=== PATIENT | female | born 2000 | race Two or more races ===

== ENCOUNTER 2021-03-16 15:22 | Emergency (ER) | payer MEDICAID, OTHER ==
[~2021-03-16] VITALS: Ht 149.9 cm; Wt 84.4 kg
[2021-03-16 15:22] VITALS: BP 105/64
== END 2021-03-16 20:16 | disposition left against medical advice (07) ==
LOC: ER 15:22
DX: O26.892 Other specified pregnancy related conditions, second trimester (principal); R07.81 Pleurodynia; Z53.21 Procedure and treatment not carried out due to patient leaving prior to being seen by health care provider; Z3A.26 26 weeks gestation of pregnancy

== ENCOUNTER 2022-01-21 14:13 | Emergency (ER) | payer MEDICAID ==
[~2022-01-21] VITALS: Ht 149.9 cm; Wt 90.7 kg
[2022-01-21 14:20] VITALS: BP 126/85
[2022-01-21 15:40] LABS: Basophils # (auto) 0.1 10 ^3/uL (0-0.2); Basophils % (auto) 0.8 % (0.0-2.0); Eosinophils # (auto) 0.1 10 ^3/uL (0-0.8); Eosinophils % (auto) 1.3 % (0.0-7.0); Hematocrit 40.9 % (36.0-46.0); Hemoglobin 13.9 g/dL (12.2-16.2); Lymphocytes # (auto) 2.6 10 ^3/uL (0.4-5.4); Mean Corpuscular Hemoglobin 31.7 pg (28.0-32.0); Mean Corpuscular Volume 93.1 fL (80.0-100.0); Monocytes # (auto) 0.8 10 ^3/uL (0-1.3); Monocytes % (auto) 9.1 % (0.0-12.0); Neutrophils # (auto) 5.3 10 ^3/uL (1.6-8.6); Neutrophils % (auto) 59.8 % (37.0-80.0); Nucleated Red Blood Cells % 0.1 %; Red Blood Cells 4.39 10^6/uL (4.0-5.20); Red Cell Distribution Width 12.8 % (11.8-14.3); White Blood Cell 8.8 10^3/uL (4.4-10.8)
[2022-01-21 15:46] LABS: Calcium 8.8 mg/dL (8.5-10.1)
[2022-01-21 15:47] LABS: Bilirubin, Total 0.4 mg/dL (0.2-1.0); Total Protein 7.5 g/dL (6.4-8.2)
[2022-01-21 16:15] LABS: INR 1.02 (0.9-1.15); Partial Thromboplastin Time 29.6 sec (23.6-33.0)
[2022-01-21] MEDS ORDERED: CEPH-322 PO (17:43)
== END 2022-01-21 17:59 | disposition left against medical advice (07) ==
LOC: ER 14:13
DX: N93.9 Abnormal uterine and vaginal bleeding, unspecified (principal); R10.2 Pelvic and perineal pain; Z53.29 Procedure and treatment not carried out because of patient's decision for other reasons
CPT/HCPCS: 36415; 80053; 84702; 85025; 85610; 85730; 86850; 86900; 86901

== ENCOUNTER 2022-03-01 19:45 | Emergency (ER) | payer MEDICAID ==
[~2022-03-01] VITALS: Ht 165.1 cm; Wt 75.0 kg
[~2022-03-01 19:45] MED LIST: CEPH-322 PO
[2022-03-01 20:13] LABS: Basophils # (auto) 0.1 10 ^3/uL (0-0.2); Eosinophils # (auto) 0.1 10 ^3/uL (0-0.8); Eosinophils % (auto) 1.5 % (0.0-7.0); Hematocrit 41.2 % (36.0-46.0); Hemoglobin 13.8 g/dL (12.2-16.2); Lymphocytes # (auto) 2.5 10 ^3/uL (0.4-5.4); Lymphocytes % (auto) 30.9 % (10.0-50.0); Mean Corpuscular Hemoglobin 31.1 pg (28.0-32.0); Mean Corpuscular Hgb Conc. 33.4 g/dL (32.0-36.0); Mean Corpuscular Volume 93.2 fL (80.0-100.0); Monocytes # (auto) 0.6 10 ^3/uL (0-1.3); Monocytes % (auto) 7.7 % (0.0-12.0); Neutrophils # (auto) 4.7 10 ^3/uL (1.6-8.6); Neutrophils % (auto) 58.9 % (37.0-80.0); Red Blood Cells 4.43 10^6/uL (4.0-5.20); Red Cell Distribution Width 12.8 % (11.8-14.3)
[2022-03-01 20:29] LABS: Alanine Aminotransferase 18 U/L (13-56); Albumin 3.5 g/dL (3.4-5.0); Anion Gap 9 (5-15); Aspartate Aminotransferase 10 U/L (15-37); BUN/Creatinine Ratio 21.4; Blood Urea Nitrogen 12 mg/dL (7-18); Calcium 8.1 mg/dL (8.5-10.1); Carbon Dioxide 21 mmol/L (21-32); Chloride 110 mmol/L (98-107); GFR African American 174 mL/min; GFR Non-African American 144 mL/min; Glucose 88 mg/dL (74-106); Magnesium 2.3 mg/dL (1.6-2.6); Potassium 3.8 mmol/L (3.5-5.1); Sodium 140 mmol/L (136-145)
[2022-03-01 20:31] LABS: Acetaminophen 3.8 ug/mL (10-30); Alkaline Phosphatase 97 U/L (45-117); Bilirubin, Total 0.5 mg/dL (0.2-1.0); Salicylate < 1.7 mg/dL (2.8-20.0); Total Protein 7.1 g/dL (6.4-8.2)
[2022-03-01 22:39] LABS: Urine Bacteria MOD /hpf (None Seen); Urine Blood 3+ /uL (Negative); Urine Mucus FEW (None Seen); Urine WBC 61 /hpf (0 - 5)
[2022-03-01 22:56] LABS: Amphetamine Screen, Urine NEGATIVE (NEGATIVE); Barbiturate Scree,Urine NEGATIVE (NEGATIVE); Benzodiazephine Screen, Urine NEGATIVE (NEGATIVE); Cannabinoid Screen, Urine NEGATIVE (NEGATIVE); Cocaine Screen, Urine NEGATIVE (NEGATIVE); Opiate Scree,Urine NEGATIVE (NEGATIVE); Phencyclidine Screen, Urine NEGATIVE (NEGATIVE)
[2022-03-01] MEDS ORDERED: cefTRIAXone 1GM/50ML D5W 50 ML IV ONE (23:45)
[2022-03-02] MEDS ORDERED: CEPH-322 PO (03:30)
[2022-03-02] MEDS ORDERED: HYDR25CA PO (08:22)
[2022-03-02 08:51] VITALS: BP 124/74
== END 2022-03-02 09:11 | disposition home or self-care (01) ==
LOC: ER 19:45 → EDBD 19:45 → ER 03-02 08:57
DX: T39.1X2A Poisoning by 4-Aminophenol derivatives, intentional self-harm, initial encounter (principal); R45.851 Suicidal ideations; N39.0 Urinary tract infection, site not specified; F41.9 Anxiety disorder, unspecified; Z91.51 Personal history of suicidal behavior; Y92.89 Other specified places as the place of occurrence of the external cause
CPT/HCPCS: 36415; 80053; 80307; 80320; 80329; 81001; 81025; 83735; 85025; 87086; 96365; 99285; J0696

== ENCOUNTER → 2022-04-16 | Emergency (ER) | payer MEDICAID ==
[~2022-04-16] VITALS: Ht 149.9 cm; Wt 63.3 kg
[~2022-04-16] MED LIST changes: +HYDR25CA PO
[2022-04-16 09:01] VITALS: BP 112/59
[2022-04-16 10:02] LABS: Urine Bacteria FEW /hpf (None Seen); Urine Blood Negative /uL (Negative); Urine WBC 3 /hpf (0 - 5)
[2022-04-16 10:05] LABS: Alcohol, Urine < 3.0 mg/dL (0-10); Amphetamine Screen, Urine NEGATIVE (NEGATIVE); Barbiturate Scree,Urine NEGATIVE (NEGATIVE); Benzodiazephine Screen, Urine NEGATIVE (NEGATIVE); Cannabinoid Screen, Urine NEGATIVE (NEGATIVE); Cocaine Screen, Urine NEGATIVE (NEGATIVE); Opiate Scree,Urine NEGATIVE (NEGATIVE); Phencyclidine Screen, Urine NEGATIVE (NEGATIVE)
[2022-04-16 10:31] LABS: Basophils # (auto) 0.1 10 ^3/uL (0-0.2); Basophils % (auto) 0.8 % (0.0-2.0); Eosinophils # (auto) 0.2 10 ^3/uL (0-0.8); Eosinophils % (auto) 1.5 % (0.0-7.0); Hematocrit 40.9 % (36.0-46.0); Lymphocytes # (auto) 2.6 10 ^3/uL (0.4-5.4); Lymphocytes % (auto) 26.3 % (10.0-50.0); Mean Corpuscular Hemoglobin 31.9 pg (28.0-32.0); Mean Corpuscular Hgb Conc. 34.1 g/dL (32.0-36.0); Mean Corpuscular Volume 93.4 fL (80.0-100.0); Monocytes # (auto) 0.7 10 ^3/uL (0-1.3); Monocytes % (auto) 6.8 % (0.0-12.0); Neutrophils # (auto) 6.4 10 ^3/uL (1.6-8.6); Neutrophils % (auto) 64.6 % (37.0-80.0); Nucleated Red Blood Cells % 0.1 %; Red Blood Cells 4.38 10^6/uL (4.0-5.20); Red Cell Distribution Width 12.4 % (11.8-14.3); White Blood Cell 9.9 10^3/uL (4.4-10.8)
[2022-04-16 10:54] LABS: Albumin 3.7 g/dL (3.4-5.0); Calcium 8.9 mg/dL (8.5-10.1); Potassium 4.6 mmol/L (3.5-5.1)
[2022-04-16 10:57] LABS: Bilirubin, Total 0.3 mg/dL (0.2-1.0); Total Protein 7.4 g/dL (6.4-8.2)
[2022-04-16 12:18] LABS: BUN/Creatinine Ratio 15.9
== END | disposition left against medical advice (07) ==
LOC: ER 08:30
DX: R10.9 Unspecified abdominal pain (principal); Z53.21 Procedure and treatment not carried out due to patient leaving prior to being seen by health care provider
CPT/HCPCS: 36415; 80053; 80307; 81001; 81025; 83690; 85025

== ENCOUNTER 2022-07-09 07:00 | Emergency (ER) | payer MEDICAID ==
[~2022-07-09] VITALS: Ht 149.9 cm; Wt 95.0 kg
[2022-07-09 07:37] VITALS: BP 123/73
[2022-07-09 07:50] LABS: Urine Bacteria FEW /hpf (None Seen); Urine Blood TRACE /uL (Negative); Urine Mucus FEW (None Seen); Urine Specific Gravity 1.025 (1.001-1.035); Urine WBC 2 /hpf (0 - 5)
[2022-07-09 07:50] LABS: Basophils # (auto) 0.1 10 ^3/uL (0-0.2); Basophils % (auto) 0.7 % (0.0-2.0); Eosinophils # (auto) 0.1 10 ^3/uL (0-0.8); Hematocrit 41.3 % (36.0-46.0); Hemoglobin 13.8 g/dL (12.2-16.2); Lymphocytes # (auto) 3.2 10 ^3/uL (0.4-5.4); Lymphocytes % (auto) 24.4 % (10.0-50.0); Mean Corpuscular Hgb Conc. 33.4 g/dL (32.0-36.0); Mean Corpuscular Volume 92.9 fL (80.0-100.0); Monocytes # (auto) 0.9 10 ^3/uL (0-1.3); Monocytes % (auto) 6.8 % (0.0-12.0); Neutrophils % (auto) 67.1 % (37.0-80.0); Red Blood Cells 4.45 10^6/uL (4.0-5.20); Red Cell Distribution Width 12.6 % (11.8-14.3); White Blood Cell 13.3 10^3/uL (4.4-10.8)
[2022-07-09 07:57] LABS: BUN/Creatinine Ratio 13.5; Calcium 9.3 mg/dL (8.5-10.1); Potassium 4.4 mmol/L (3.5-5.1)
[2022-07-09] MEDS ORDERED: HYDR50CA PO (08:48)
== END 2022-07-09 08:56 | disposition home or self-care (01) ==
LOC: ER 07:02
DX: F41.1 Generalized anxiety disorder (principal)
CPT/HCPCS: 36415; 80048; 81001; 84484; 85025; 93005

== ENCOUNTER 2022-07-20 18:01 | Emergency (ER) | payer MEDICAID ==
[~2022-07-20] VITALS: Ht 149.9 cm; Wt 95.8 kg
[~2022-07-20 18:01] MED LIST changes: +HYDR50CA PO
[2022-07-20 19:24] LABS: Basophils # (auto) 0.2 10 ^3/uL (0-0.2); Basophils % (auto) 1.3 % (0.0-2.0); Eosinophils # (auto) 0.1 10 ^3/uL (0-0.8); Eosinophils % (auto) 0.5 % (0.0-7.0); Hematocrit 38.6 % (36.0-46.0); Lymphocytes # (auto) 2.4 10 ^3/uL (0.4-5.4); Lymphocytes % (auto) 15.5 % (10.0-50.0); Mean Corpuscular Hemoglobin 31.5 pg (28.0-32.0); Mean Corpuscular Hgb Conc. 33.6 g/dL (32.0-36.0); Mean Corpuscular Volume 93.8 fL (80.0-100.0); Monocytes # (auto) 0.8 10 ^3/uL (0-1.3); Monocytes % (auto) 5.4 % (0.0-12.0); Neutrophils # (auto) 11.9 10 ^3/uL (1.6-8.6); Neutrophils % (auto) 77.3 % (37.0-80.0); Red Blood Cells 4.11 10^6/uL (4.0-5.20); Red Cell Distribution Width 12.8 % (11.8-14.3); White Blood Cell 15.4 10^3/uL (4.4-10.8)
[2022-07-20 19:39] LABS: Calcium 8.5 mg/dL (8.5-10.1); Potassium 3.7 mmol/L (3.5-5.1)
[2022-07-20 19:42] LABS: Albumin 3.2 g/dL (3.4-5.0); BUN/Creatinine Ratio 21.3
[2022-07-20 19:42] LABS: Urine Blood Negative /uL (Negative); Urine Specific Gravity 1.025 (1.001-1.035)
[2022-07-20 19:56] LABS: Bilirubin, Total 0.2 mg/dL (0.2-1.0); Total Protein 6.8 g/dL (6.4-8.2)
[2022-07-20] MEDS ORDERED: NITR-87 PO (21:03)
[2022-07-20 22:44] VITALS: BP 133/74
== END 2022-07-20 22:45 | disposition home or self-care (01) ==
LOC: ER 18:03
DX: N39.0 Urinary tract infection, site not specified (principal); Z32.01 Encounter for pregnancy test, result positive
CPT/HCPCS: 36415; 74176; 80053; 81003; 81025; 85025

== ENCOUNTER 2022-08-28 12:15 | Emergency (ER) | payer MEDICAID ==
[~2022-08-28] VITALS: Ht 149.9 cm; Wt 100.0 kg
[~2022-08-28 12:15] MED LIST changes: +NITR-87 PO
[2022-08-28 14:01] LABS: Urine Bacteria NONE SEEN /hpf (None Seen); Urine Blood Negative /uL (Negative); Urine Mucus FEW (None Seen); Urine WBC 4 /hpf (0 - 5)
[2022-08-28 14:13] VITALS: BP 112/66
[2022-08-28] MEDS ORDERED: NITR-87 PO (15:18)
[2022-08-28] MEDS ORDERED: LIDO2SOL23 MT (15:18)
[2022-08-28] MEDS ORDERED: AZIT250T8 PO (15:18)
== END 2022-08-28 15:32 | disposition home or self-care (01) ==
LOC: ER 12:15
DX: O23.31 Infections of other parts of urinary tract in pregnancy, first trimester (principal); N39.0 Urinary tract infection, site not specified; J02.9 Acute pharyngitis, unspecified; F41.9 Anxiety disorder, unspecified; Z3A.09 9 weeks gestation of pregnancy; Z79.899 Other long term (current) drug therapy
CPT/HCPCS: 81001

== ENCOUNTER → 2022-09-22 | Outpatient (CLI) | payer MEDICAID ==
[~2022-09-22] MED LIST changes: +AZIT250T8 PO; +LIDO2SOL23 MT
[2022-09-22 11:32] LABS: Band Neutrophils % (manual) 0; Basophils % (manual) 0 (0.0-2.0); Blast Cells 0; Eosinophils % (manual) 0 (0-7); Metamyelocytes % 0; Myelocytes % 0; Promyelocytes % 0; Reactive Lymphocytes 0
[2022-09-22 11:44] LABS: Basophils # (auto) 0 10 ^3/uL (0-0.2); Basophils % (auto) 0.5 % (0.0-2.0); Eosinophils # (auto) 0.1 10 ^3/uL (0-0.8); Eosinophils % (auto) 0.6 % (0.0-7.0); Hematocrit 36.9 % (36.0-46.0); Hemoglobin 12.8 g/dL (12.2-16.2); Lymphocytes # (auto) 2.1 10 ^3/uL (0.4-5.4); Lymphocytes % (auto) 21.7 % (10.0-50.0); Mean Corpuscular Hemoglobin 32.4 pg (28.0-32.0); Mean Corpuscular Hgb Conc. 34.7 g/dL (32.0-36.0); Mean Corpuscular Volume 93.4 fL (80.0-100.0); Monocytes # (auto) 0.7 10 ^3/uL (0-1.3); Monocytes % (auto) 6.8 % (0.0-12.0); Neutrophils # (auto) 6.9 10 ^3/uL (1.6-8.6); Neutrophils % (auto) 70.4 % (37.0-80.0); Red Blood Cells 3.95 10^6/uL (4.0-5.20); Red Cell Distribution Width 12.8 % (11.8-14.3); White Blood Cell 9.7 10^3/uL (4.4-10.8)
[2022-09-22 12:45] LABS: Alcohol, Urine < 3.0 mg/dL (0-10); Amphetamine Screen, Urine NEGATIVE (NEGATIVE); Barbiturate Scree,Urine NEGATIVE (NEGATIVE); Benzodiazephine Screen, Urine NEGATIVE (NEGATIVE); Cannabinoid Screen, Urine NEGATIVE (NEGATIVE); Cocaine Screen, Urine NEGATIVE (NEGATIVE); Opiate Scree,Urine NEGATIVE (NEGATIVE); Phencyclidine Screen, Urine NEGATIVE (NEGATIVE)
[2022-09-22 20:33] LABS: Lymphocytes % (manual) 22 (10.0-50.0); Monocytes % (manual) 11 (0-12)
[2022-09-23 07:07] LABS: RPR Non Reactive (Non Reactive)
== END | disposition home or self-care (01) ==
LOC: LAB 11:04
PROVIDERS: ATTEND Obstetrics & Gynecology
DX: Z34.80 Encounter for supervision of other normal pregnancy, unspecified trimester (principal); Z36.0 Encounter for antenatal screening for chromosomal anomalies; N39.0 Urinary tract infection, site not specified; Z3A.00 Weeks of gestation of pregnancy not specified
CPT/HCPCS: 36415; 80307; 83036; 84112; 84702; 85025; 86592; 86703; 86762; 86803; 86850; 86900; 86901; 87086; 87340

== ENCOUNTER 2022-11-20 11:25 | Observation (INO) | payer MEDICAID ==
[2022-11-20] MEDS ORDERED: PREN-96 PO (13:13)
== END 2022-11-20 13:25 | disposition home or self-care (01) ==
LOC: LDRP 11:25
PROVIDERS: ADMIT Obstetrics & Gynecology; ATTEND Obstetrics & Gynecology
DX: O26.892 Other specified pregnancy related conditions, second trimester (principal); R10.9 Unspecified abdominal pain; Z3A.24 24 weeks gestation of pregnancy; W19.XXXA Unspecified fall, initial encounter; Y92.89 Other specified places as the place of occurrence of the external cause; Y93.89 Activity, other specified; Y99.8 Other external cause status
CPT/HCPCS: 59025; 76815; 81002; 94760; G0378

== ENCOUNTER 2022-12-17 18:24 | Observation (INO) | payer MEDICAID ==
[~2022-12-17] VITALS: Ht 149.9 cm; Wt 99.8 kg
[~2022-12-17 18:24] MED LIST changes: +PREN-96 PO
[2022-12-17 20:17] LABS: Urine Bacteria FEW /hpf (None Seen); Urine Blood 2+ /uL (Negative); Urine Mucus FEW (None Seen); Urine Specific Gravity 1.021 (1.001-1.035); Urine WBC 11 /hpf (0 - 5)
[2022-12-17] MEDS ORDERED: SERT25TA84 PO (20:35)
== END 2022-12-17 21:29 | disposition home or self-care (01) ==
LOC: LDRP 18:24
PROVIDERS: ADMIT Obstetrics & Gynecology; ATTEND Obstetrics & Gynecology
DX: O99.891 Other specified diseases and conditions complicating pregnancy (principal); M54.50 Low back pain, unspecified; R10.30 Lower abdominal pain, unspecified; Z3A.27 27 weeks gestation of pregnancy
CPT/HCPCS: 59025; 81001; 81002; 94760; G0378

== ENCOUNTER → 2022-12-23 | Outpatient (CLI) | payer MEDICAID ==
[~2022-12-23] MED LIST changes: +SERT25TA84 PO
[2022-12-23 10:20] LABS: Basophils # (auto) 0 10 ^3/uL (0-0.2); Basophils % (auto) 0.4 % (0.0-2.0); Eosinophils # (auto) 0.1 10 ^3/uL (0-0.8); Eosinophils % (auto) 1.1 % (0.0-7.0); Hemoglobin 11.7 g/dL (12.2-16.2); Lymphocytes # (auto) 2.3 10 ^3/uL (0.4-5.4); Lymphocytes % (auto) 25.5 % (10.0-50.0); Mean Corpuscular Hemoglobin 33.4 pg (28.0-32.0); Mean Corpuscular Hgb Conc. 35.4 g/dL (32.0-36.0); Mean Corpuscular Volume 94.4 fL (80.0-100.0); Monocytes # (auto) 0.9 10 ^3/uL (0-1.3); Monocytes % (auto) 9.9 % (0.0-12.0); Neutrophils # (auto) 5.8 10 ^3/uL (1.6-8.6); Neutrophils % (auto) 63.1 % (37.0-80.0); Red Cell Distribution Width 13.1 % (11.8-14.3); White Blood Cell 9.2 10^3/uL (4.4-10.8)
== END | disposition home or self-care (01) ==
LOC: LAB 10:01
PROVIDERS: ATTEND Obstetrics & Gynecology
DX: O99.810 Abnormal glucose complicating pregnancy (principal); Z3A.00 Weeks of gestation of pregnancy not specified
CPT/HCPCS: 36415; 82951; 83036; 85025

== ENCOUNTER 2022-12-25 20:11 | Observation (INO) | payer MEDICAID ==
[~2022-12-25] VITALS: Ht 167.6 cm; Wt 110.0 kg
[~2022-12-25 20:11] MED LIST changes: +AZIT-81 PO; -AZIT250T8 PO; -CEPH-322 PO; +CEPH250C PO; -LIDO2SOL23 MT; +LIDO2SOL26 MT
[2022-12-25] MEDS ORDERED: ACETAMINOPHEN 325 MG TAB PO ONE (21:15)
[2022-12-25] MEDS ORDERED: METOCLOPRAMIDE HCL 10 MG TAB PO ONE (21:15)
[2022-12-25] MEDS ORDERED: SODIUM CHLORIDE 0.9% 1,000 ML IV ONE (21:15)
[2022-12-25 21:17] LABS: Albumin 2.7 g/dL (3.4-5.0)
[2022-12-25 21:19] LABS: Basophils # (auto) 0 10 ^3/uL (0-0.2); Basophils % (auto) 0.2 % (0.0-2.0); Eosinophils # (auto) 0 10 ^3/uL (0-0.8); Eosinophils % (auto) 0.3 % (0.0-7.0); Hematocrit 34.7 % (36.0-46.0); Lymphocytes # (auto) 1.7 10 ^3/uL (0.4-5.4); Lymphocytes % (auto) 13.9 % (10.0-50.0); Mean Corpuscular Hemoglobin 32.7 pg (28.0-32.0); Mean Corpuscular Hgb Conc. 34.5 g/dL (32.0-36.0); Mean Corpuscular Volume 94.7 fL (80.0-100.0); Monocytes # (auto) 0.9 10 ^3/uL (0-1.3); Neutrophils # (auto) 9.8 10 ^3/uL (1.6-8.6); Neutrophils % (auto) 78.6 % (37.0-80.0); Nucleated Red Blood Cells % 0.1 %; Red Blood Cells 3.66 10^6/uL (4.0-5.20); Red Cell Distribution Width 13.2 % (11.8-14.3); White Blood Cell 12.5 10^3/uL (4.4-10.8)
[2022-12-25 21:21] LABS: BUN/Creatinine Ratio 15.2 (10.0-20.0); Bilirubin, Total 0.1 mg/dL (0.2-1.0); Total Protein 6.6 g/dL (6.4-8.2)
[2022-12-25] MEDS ORDERED: TETANUS-DIPTH-ACEL PERTUSSIS 0.5ML SYR Tdap IM ONE (21:30)
[2022-12-25] MEDS ORDERED: fentaNYL CITRATE 100 MCG/2 ML VL IV ONE (21:30)
[2022-12-25 23:05] LABS: Alcohol, Urine < 3.0 mg/dL (0-10); Amphetamine Screen, Urine NEGATIVE (NEGATIVE); Barbiturate Scree,Urine NEGATIVE (NEGATIVE); Benzodiazephine Screen, Urine NEGATIVE (NEGATIVE); Cannabinoid Screen, Urine NEGATIVE (NEGATIVE); Cocaine Screen, Urine NEGATIVE (NEGATIVE); Opiate Scree,Urine NEGATIVE (NEGATIVE); Phencyclidine Screen, Urine NEGATIVE (NEGATIVE)
[2022-12-25 23:12] LABS: Urine Bacteria FEW /hpf (None Seen); Urine Blood Negative /uL (Negative); Urine Mucus FEW (None Seen); Urine WBC 15 /hpf (0 - 5)
[2022-12-26 03:04] VITALS: BP 102/58
== END 2022-12-26 04:45 | disposition home or self-care (01) ==
LOC: EDBD 20:11 → ER 20:11 → LDRP 12-26 03:06 → ER 12-26 03:06 → LDRP 12-26 03:07
PROVIDERS: ADMIT Obstetrics & Gynecology; ATTEND Obstetrics & Gynecology
DX: O9A.213 Injury, poisoning and certain other consequences of external causes complicating pregnancy, third trimester (principal); S00.531A Contusion of lip, initial encounter; O26.893 Other specified pregnancy related conditions, third trimester; R10.9 Unspecified abdominal pain; R10.2 Pelvic and perineal pain; O36.8130 Decreased fetal movements, third trimester, not applicable or unspecified; O99.343 Other mental disorders complicating pregnancy, third trimester; F41.8 Other specified anxiety disorders; Z3A.28 28 weeks gestation of pregnancy; Z23 Encounter for immunization; Z71.85 Encounter for immunization safety counseling; Z36.0 Encounter for antenatal screening for chromosomal anomalies; Z79.899 Other long term (current) drug therapy; Y04.8XXA Assault by other bodily force, initial encounter; Y93.89 Activity, other specified; Y92.89 Other specified places as the place of occurrence of the external cause; Y99.8 Other external cause status
CPT/HCPCS: 36415; 59025; 70450; 70486; 76705; 76815; 80053; 80307; 80320; 81001; 84702; 85025; 86850; 86900; 86901; 90471; 90715; 96361; 96374; 99285; G0378; J3010; J8597

== ENCOUNTER 2023-02-09 12:30 | Observation (INO) | payer MEDICAID ==
[~2023-02-09] VITALS: Ht 149.9 cm; Wt 99.8 kg
[2023-02-09] MEDS ORDERED: FAMOTIDINE (10MG/ML) 2ML VL IV ONE (14:00)
[2023-02-09] MEDS ORDERED: LOPERAMIDE HCL 2 MG CAP/TAB PO ONE (14:00)
[2023-02-09] MEDS ORDERED: D5W/LACTATED RINGERS 1,000 ML IV ONE (14:00)
[2023-02-09] MEDS ORDERED: ONDANSETRON HCL 4 MG/2 ML VIAL IV ONE (14:00)
[2023-02-09] MEDS ORDERED: PREN-96 PO (17:11)
[2023-02-09] MEDS ORDERED: ZOFR4T PO (17:11)
[2023-02-09] MEDS ORDERED: SERT25TA84 PO (17:11)
== END 2023-02-09 17:38 | disposition home or self-care (01) ==
LOC: LDRP 12:30
PROVIDERS: ADMIT Obstetrics & Gynecology; ATTEND Obstetrics & Gynecology
DX: O21.2 Late vomiting of pregnancy (principal); O26.893 Other specified pregnancy related conditions, third trimester; R19.7 Diarrhea, unspecified; N89.8 Other specified noninflammatory disorders of vagina; O99.343 Other mental disorders complicating pregnancy, third trimester; F41.9 Anxiety disorder, unspecified; F32.A Depression, unspecified; Z3A.34 34 weeks gestation of pregnancy
CPT/HCPCS: 59025; 76818; 81002; 96374; 96375; G0378; J2405; J3490

== ENCOUNTER → 2023-02-16 | Outpatient (CLI) | payer MEDICAID ==
[~2023-02-16] MED LIST changes: -AZIT-81 PO; -CEPH250C PO; -HYDR25CA PO; -HYDR50CA PO; -LIDO2SOL26 MT; -NITR-87 PO; +ZOFR4T PO
[2023-02-16 12:42] LABS: Basophils # (auto) 0.1 10 ^3/uL (0-0.2); Basophils % (auto) 0.6 % (0.0-2.0); Eosinophils # (auto) 0.1 10 ^3/uL (0-0.8); Eosinophils % (auto) 0.8 % (0.0-7.0); Hematocrit 32.3 % (36.0-46.0); Hemoglobin 10.8 g/dL (12.2-16.2); Lymphocytes % (auto) 20.8 % (10.0-50.0); Mean Corpuscular Hemoglobin 31.6 pg (28.0-32.0); Mean Corpuscular Hgb Conc. 33.5 g/dL (32.0-36.0); Mean Corpuscular Volume 94.4 fL (80.0-100.0); Monocytes # (auto) 0.9 10 ^3/uL (0-1.3); Monocytes % (auto) 9.8 % (0.0-12.0); Neutrophils # (auto) 6.4 10 ^3/uL (1.6-8.6); Nucleated Red Blood Cells % 0.1 %; Red Blood Cells 3.42 10^6/uL (4.0-5.20); Red Cell Distribution Width 12.9 % (11.8-14.3); White Blood Cell 9.4 10^3/uL (4.4-10.8)
[2023-02-17 07:06] LABS: RPR Non Reactive (Non Reactive)
== END | disposition home or self-care (01) ==
LOC: LAB 12:11
PROVIDERS: ATTEND Obstetrics & Gynecology
DX: Z34.00 Encounter for supervision of normal first pregnancy, unspecified trimester (principal); Z3A.00 Weeks of gestation of pregnancy not specified
CPT/HCPCS: 36415; 84112; 85025; 86592

== ENCOUNTER 2023-03-07 09:15 | Observation (INO) | payer MEDICAID ==
[2023-03-07 10:55] LABS: Albumin 2.4 g/dL (3.4-5.0); Calcium 8.2 mg/dL (8.5-10.1)
[2023-03-07 11:00] LABS: BUN/Creatinine Ratio 14.3 (10.0-20.0); Bilirubin, Total 0.2 mg/dL (0.2-1.0)
[2023-03-07 11:05] LABS: Basophils # (auto) 0.1 10 ^3/uL (0-0.2); Basophils % (auto) 0.6 % (0.0-2.0); Eosinophils # (auto) 0.1 10 ^3/uL (0-0.8); Eosinophils % (auto) 0.9 % (0.0-7.0); Hematocrit 32.2 % (36.0-46.0); Hemoglobin 10.7 g/dL (12.2-16.2); Lymphocytes # (auto) 2.3 10 ^3/uL (0.4-5.4); Lymphocytes % (auto) 22.4 % (10.0-50.0); Mean Corpuscular Hemoglobin 31.1 pg (28.0-32.0); Mean Corpuscular Hgb Conc. 33.3 g/dL (32.0-36.0); Mean Corpuscular Volume 93.3 fL (80.0-100.0); Monocytes # (auto) 0.9 10 ^3/uL (0-1.3); Monocytes % (auto) 8.8 % (0.0-12.0); Neutrophils % (auto) 67.3 % (37.0-80.0); Nucleated Red Blood Cells % 0.1 %; Red Blood Cells 3.45 10^6/uL (4.0-5.20); Red Cell Distribution Width 13.2 % (11.8-14.3); White Blood Cell 10.5 10^3/uL (4.4-10.8)
[2023-03-07 11:08] LABS: Barbiturate Scree,Urine NEGATIVE (NEGATIVE)
[2023-03-07 11:11] LABS: Alcohol, Urine < 3.0 mg/dL (0-10); Amphetamine Screen, Urine NEGATIVE (NEGATIVE); Benzodiazephine Screen, Urine NEGATIVE (NEGATIVE); Cannabinoid Screen, Urine NEGATIVE (NEGATIVE); Cocaine Screen, Urine NEGATIVE (NEGATIVE); Opiate Scree,Urine NEGATIVE (NEGATIVE); Phencyclidine Screen, Urine NEGATIVE (NEGATIVE)
[2023-03-07 11:21] LABS: Urine Bacteria MOD /hpf (None Seen); Urine Blood Negative /uL (Negative); Urine Clarity HAZY (Clear); Urine Color Yellow (Yellow); Urine Mucus FEW (None Seen); Urine Protein, UAD TRACE (Negative); Urine Specific Gravity 1.021 (1.001-1.035); Urine Urobilinogen Normal (Negative); Urine WBC 17 /hpf (0 - 5); Urine pH 6.5 (5.0-8.0)
== END 2023-03-07 12:37 | disposition home or self-care (01) ==
LOC: ER 09:15 → LDRP 09:35
PROVIDERS: ADMIT Obstetrics & Gynecology; ATTEND Obstetrics & Gynecology
DX: O26.893 Other specified pregnancy related conditions, third trimester (principal); R10.11 Right upper quadrant pain; R51.9 Headache, unspecified; Z3A.38 38 weeks gestation of pregnancy; Z79.899 Other long term (current) drug therapy
CPT/HCPCS: 36415; 59025; 76705; 80053; 80307; 81001; 81002; 85025; 94760; G0378

== ENCOUNTER 2023-03-09 13:26 | Observation (INO) | payer MEDICAID ==
[2023-03-09 16:37] LABS: Fern Testing Negative
== END 2023-03-09 16:56 | disposition home or self-care (01) ==
LOC: UNDOADMOB 13:26 → LDRP 13:26
PROVIDERS: ADMIT Obstetrics & Gynecology; ATTEND Obstetrics & Gynecology
DX: O62.9 Abnormality of forces of labor, unspecified (principal); O42.92 Full-term premature rupture of membranes, unspecified as to length of time between rupture and onset of labor; Z3A.38 38 weeks gestation of pregnancy
CPT/HCPCS: 59025; 76818; 81002; 84112; 94760; G0378; Q0114

== ENCOUNTER 2023-03-13 13:06 | Observation (INO) | payer MEDICAID | END 2023-03-13 15:20 | disposition home or self-care (01) | LOC: LDRP 13:06 | PROVIDERS: ADMIT Obstetrics & Gynecology; ATTEND Obstetrics & Gynecology | DX: O36.63X0 Maternal care for excessive fetal growth, third trimester, not applicable or unspecified (principal); Z3A.39 39 weeks gestation of pregnancy | CPT/HCPCS: 59025; 76818; 81002; G0378 ==

== ENCOUNTER 2023-03-18 13:29 | Inpatient (IN) | payer MEDICAID ==
[~2023-03-18] VITALS: Ht 149.9 cm; Wt 100.2 kg
[2023-03-18] MEDS ORDERED: PROMETHAZINE HCL 25 MG/ML 1ML IV PRN (14:45)
[2023-03-18] MEDS ORDERED: BUTORPHANOL TARTRATE 2 MG/1 ML VIAL IV PRN ×2 (14:45)
[2023-03-18] MEDS ORDERED: WITCH HAZEL-GLYCERIN PAD TOP PRN (14:45)
[2023-03-18] MEDS ORDERED: PHISODERM TOP SOLN 240ML BTL TOP PRN (14:45)
[2023-03-18] MEDS ORDERED: LIDOCAINE 2%HCL (LOCAL ANESTH.) INJ 20ML MDV IJ PRN (14:45)
[2023-03-18] MEDS ORDERED: DERMOPLAST 60ML BOTTLE TOP PRN (14:45)
[2023-03-18 15:19] LABS: Basophils # (auto) 0 10 ^3/uL (0-0.2); Basophils % (auto) 0.4 % (0.0-2.0); Eosinophils # (auto) 0.1 10 ^3/uL (0-0.8); Eosinophils % (auto) 0.8 % (0.0-7.0); Hematocrit 34.3 % (36.0-46.0); Hemoglobin 11.6 g/dL (12.2-16.2); Lymphocytes # (auto) 2.5 10 ^3/uL (0.4-5.4); Lymphocytes % (auto) 21.2 % (10.0-50.0); Mean Corpuscular Hemoglobin 31.1 pg (28.0-32.0); Mean Corpuscular Hgb Conc. 33.8 g/dL (32.0-36.0); Mean Corpuscular Volume 92.1 fL (80.0-100.0); Monocytes % (auto) 8.5 % (0.0-12.0); Neutrophils # (auto) 8.2 10 ^3/uL (1.6-8.6); Neutrophils % (auto) 69.1 % (37.0-80.0); Red Blood Cells 3.73 10^6/uL (4.0-5.20); Red Cell Distribution Width 13.6 % (11.8-14.3); White Blood Cell 11.9 10^3/uL (4.4-10.8)
[2023-03-18] MEDS: LACTATED RINGER'S 1,000 ML IV SCH ×2 (15:37→17:43)
[2023-03-18 15:39] LABS: INR 0.95 (0.9-1.15); Partial Thromboplastin Time 28.5 SEC (24.5-34.5)
[2023-03-18 15:56] LABS: Albumin 2.9 g/dL (3.4-5.0); Calcium 9.1 mg/dL (8.5-10.1); Potassium 3.8 mmol/L (3.5-5.1)
[2023-03-18 16:00] LABS: BUN/Creatinine Ratio 20.4 (10.0-20.0); Bilirubin, Total 0.3 mg/dL (0.2-1.0); Total Protein 7.4 g/dL (6.4-8.2)
[2023-03-18 16:48] LABS: Urine Bacteria FEW /hpf (None Seen); Urine Blood Negative /uL (Negative); Urine Clarity HAZY (Clear); Urine Color Yellow (Yellow); Urine Hyaline Cast FEW /lpf (0 - 2); Urine Mucus FEW (None Seen); Urine Protein, UAD TRACE (Negative); Urine Specific Gravity 1.022 (1.001-1.035); Urine Urobilinogen Normal (Negative); Urine WBC 3 /hpf (0 - 5); Urine pH 6.5 (5.0-8.0)
[2023-03-18 17:18] LABS: Alcohol, Urine < 3.0 mg/dL (0-10); Amphetamine Screen, Urine NEGATIVE (NEGATIVE); Barbiturate Scree,Urine NEGATIVE (NEGATIVE); Benzodiazephine Screen, Urine NEGATIVE (NEGATIVE); Cannabinoid Screen, Urine NEGATIVE (NEGATIVE); Cocaine Screen, Urine NEGATIVE (NEGATIVE); Opiate Scree,Urine NEGATIVE (NEGATIVE); Phencyclidine Screen, Urine NEGATIVE (NEGATIVE)
[2023-03-18] MEDS ORDERED: ONDANSETRON HCL 4 MG/2 ML VIAL IV PRN ×3 (20:15→22:15)
[2023-03-18] MEDS ORDERED: ceFAZolin 1GM/50ML 50 ML IV SCH (20:15)
[2023-03-18] MEDS ORDERED: LACT. RINGERS/OXYTOCIN 20UNITS 1,000 ML IV SCH (20:15)
[2023-03-18] MEDS ORDERED: MORPHINE SULFATE 4 MG/ML SYR/VIAL IV PRN (20:15)
[2023-03-18] MEDS ORDERED: SODIUM CITR/CITRIC ACID ORAL SOLN 30 ML ONE (20:28)
[2023-03-18] MEDS ORDERED: TETRACAINE 1% INJ 2 ML VIAL IJ ONE (20:34)
[2023-03-18] MEDS ORDERED: MORPHINE SULF PF 5 MG/10 ML VIAL ONE (20:36)
[2023-03-18] MEDS ORDERED: oxyTOCIN 10 UNIT/ML 10ML VIAL ONE (20:38)
[2023-03-18] MEDS ORDERED: ePHEDrine SULFATE 50 MG/ML AMP ONE (20:38)
[2023-03-18] MEDS ORDERED: ONDANSETRON HCL 4 MG/2 ML VIAL ONE (20:38)
[2023-03-18] MEDS ORDERED: fentaNYL CITRATE 100 MCG/2 ML VL ONE (21:23)
[2023-03-18] MEDS ORDERED: BUPIVACAINE 0.25% INJ 50ML VIAL ONE (21:43)
[2023-03-18] MEDS ORDERED: MIDAZOLAM HCL 2MG/2ML 2ml VIAL (1mg/ml) ONE (21:57)
[2023-03-18 22:03] VITALS: PULSE 84; RESP 13; O2SAT 98
[2023-03-18] MEDS ORDERED: HYDROmorphone HCL 2 MG/ML VL/or syr IV PRN (22:15)
[2023-03-18] MEDS ORDERED: diphenhdrAMINE HCL 50 MG/1 ML VL IV PRN (22:15)
[2023-03-18] MEDS ORDERED: NALOXONE HCL 0.4 MG/ML VIAL IV PRN (22:15)
[2023-03-18] MEDS ORDERED: KETOROLAC TROMETH 30 MG/ML 1ML VIAL IV PRN (22:15)
[2023-03-18] MEDS ORDERED: DexAMETHasone SOD PHOS 10MG/1ML VIAL INJ IV PRN (22:15)
[2023-03-18] MEDS ORDERED: NALBUPHINE HCL 10 MG/1ml INJECTION SUBCUT ONE (22:15)
[2023-03-18] MEDS ORDERED: OXYTOCIN 10UNIT/ML 1ML VIAL ONE (22:28)
[2023-03-18 23:00] VITALS: BP 110/66; PULSE 77; RESP 18; TEMP 98.2; O2SAT 98
[2023-03-18 23:46] VITALS: BP 97/63; PULSE 77; RESP 18; O2SAT 96
[2023-03-19] VITALS (17 sets, daily range): BP systolic 91–118; BP diastolic 46–78; PULSE 68–91; RESP 15–19; TEMP 98.1–98.8; O2SAT 94–99
[2023-03-19] MEDS: LACTATED RINGER'S 1,000 ML IV SCH ×2 (04:01→21:47)
[2023-03-19] MEDS: ACETAMINOPHEN IV 1000 MG/100ML (10MG/ML) IV PRN ×2 (04:02→12:30)
[2023-03-19] MEDS: ceFAZolin 1GM/50ML 50 ML IV SCH ×3 (05:02→21:46)
[2023-03-19 06:44] LABS: Basophils # (auto) 0.1 10 ^3/uL (0-0.2); Basophils % (auto) 0.6 % (0.0-2.0); Eosinophils # (auto) 0 10 ^3/uL (0-0.8); Eosinophils % (auto) 0.4 % (0.0-7.0); Hematocrit 27.3 % (36.0-46.0); Hemoglobin 9.3 g/dL (12.2-16.2); Lymphocytes % (auto) 16.7 % (10.0-50.0); Mean Corpuscular Hemoglobin 31.4 pg (28.0-32.0); Mean Corpuscular Volume 92.3 fL (80.0-100.0); Monocytes # (auto) 0.8 10 ^3/uL (0-1.3); Monocytes % (auto) 6.9 % (0.0-12.0); Neutrophils # (auto) 9.2 10 ^3/uL (1.6-8.6); Neutrophils % (auto) 75.4 % (37.0-80.0); Red Blood Cells 2.95 10^6/uL (4.0-5.20); Red Cell Distribution Width 13.6 % (11.8-14.3); White Blood Cell 12.1 10^3/uL (4.4-10.8)
[2023-03-19 07:06] LABS: RPR Non Reactive (Non Reactive)
[2023-03-19] MEDS ORDERED: HYDROcodone-ACET 5/325MG TAB PO PRN (14:30)
[2023-03-19] MEDS ORDERED: BISACODYL 10 MG RECT SUPP PR PRN (14:30)
[2023-03-19] MEDS: IBUPROFEN 800 MG TAB PO PRN (14:35)
[2023-03-19] MEDS: HYDROcodone-ACET 5/325MG TAB PO PRN ×2 (17:26→22:27)
[2023-03-19] MEDS: SIMETHICONE 80 MG CHEWABLE TABLET PO SCH ×2 (19:09→21:46)
[2023-03-19] MEDS: DOCUSATE SOD 100 MG CAP PO SCH (21:46)
[2023-03-20] MEDS: IBUPROFEN 800 MG TAB PO PRN ×3 (02:24→21:39)
[2023-03-20 02:50] VITALS: BP 117/76; PULSE 79; RESP 18; TEMP 98.4; O2SAT 97
[2023-03-20] MEDS: HYDROcodone-ACET 5/325MG TAB PO PRN ×3 (04:06→18:02)
[2023-03-20] MEDS: SIMETHICONE 80 MG CHEWABLE TABLET PO SCH ×4 (06:00→21:39)
[2023-03-20 07:28] VITALS: BP 101/62; PULSE 78; RESP 16; TEMP 98.1; O2SAT 97
[2023-03-20] MEDS ORDERED: PERCOT PO (08:01)
[2023-03-20] MEDS ORDERED: CEPH250C PO ×6 (08:10→08:59)
[2023-03-20] MEDS ORDERED: HYDR1TAB97 PO ×6 (08:10→16:48)
[2023-03-20] MEDS: DOCUSATE SOD 100 MG CAP PO SCH ×2 (10:08→21:39)
[2023-03-20] MEDS: DOCUSATE CALCIUM 240 MG CAP PO SCH (10:08)
[2023-03-20 10:30] VITALS: BP 106/62; PULSE 84; RESP 16; TEMP 98.3; O2SAT 95
[2023-03-20] MEDS: SODIUM CHLOR 0.9% PF (SALINE LOCK) 10ML VIAL/SYR IV SCH ×2 (14:00→22:16)
[2023-03-20] MEDS ORDERED: SERTRALINE HCL 50 MG TAB PO SCH (14:30)
[2023-03-20 15:30] VITALS: BP 111/60; PULSE 71; RESP 16; TEMP 98.6; O2SAT 98
[2023-03-20] MEDS: SERTRALINE HCL 50 MG TAB PO SCH (17:28)
[2023-03-20 18:59] VITALS: BP 128/74; PULSE 80; RESP 16; TEMP 98; O2SAT 98
[2023-03-20] MEDS ORDERED: SERTRALINE HCL 50 MG TAB PO ONE (20:00)
[2023-03-20 23:30] VITALS: BP 115/67; PULSE 73; RESP 18; TEMP 98.2; O2SAT 98
[2023-03-21] MEDS: HYDROcodone-ACET 5/325MG TAB PO PRN (02:23)
[2023-03-21] MEDS: SODIUM CHLOR 0.9% PF (SALINE LOCK) 10ML VIAL/SYR IV SCH ×2 (05:35→14:00)
[2023-03-21] MEDS: SIMETHICONE 80 MG CHEWABLE TABLET PO SCH ×3 (05:37→18:00)
[2023-03-21] MEDS: IBUPROFEN 800 MG TAB PO PRN (05:37)
[2023-03-21 06:30] VITALS: BP 114/80; PULSE 96; RESP 16; TEMP 98.4; O2SAT 96
[2023-03-21] MEDS: DOCUSATE SOD 100 MG CAP PO SCH (09:41)
[2023-03-21] MEDS: DOCUSATE CALCIUM 240 MG CAP PO SCH (09:41)
[2023-03-21] MEDS: SERTRALINE HCL 50 MG TAB PO SCH (09:41)
[2023-03-21 11:00] VITALS: BP 124/77; PULSE 79; RESP 8; TEMP 98.3; O2SAT 97
[2023-03-21 15:30] VITALS: BP 128/81; PULSE 80; RESP 8; TEMP 98.4; O2SAT 97
[2023-03-21 21:10] VITALS: BP 115/68; PULSE 68; RESP 18; TEMP 98; O2SAT 99
[2023-03-22 19:06] LABS: Treponema pallidum Ab (FTA-Ab) Non Reactive (Non Reactive)
== END 2023-03-21 21:10 | disposition home or self-care (01) | DRG 540 ==
LOC: LDRP 13:29
PROVIDERS: ADMIT Obstetrics & Gynecology; ATTEND Obstetrics & Gynecology
PROC: 3E033VJ Introduction of Other Hormone into Peripheral Vein, Percutaneous Approach (ICD-10-PCS; 2023-03-18)
PROC: 10D00Z1 Extraction of Products of Conception, Low, Open Approach (ICD-10-PCS; principal; 2023-03-18 20:36)
DX: O48.0 Post-term pregnancy (principal); R71.0 Precipitous drop in hematocrit; F41.9 Anxiety disorder, unspecified; Z37.0 Single live birth; Z81.8 Family history of other mental and behavioral disorders; O61.0 Failed medical induction of labor; Z3A.40 40 weeks gestation of pregnancy; O69.9XX0 Labor and delivery complicated by cord complication, unspecified, not applicable or unspecified
CPT/HCPCS: 36415; 59025; 76818; 80053; 80307; 81001; 81002; 85025; 85610; 85730; 86592; 86850; 86900; 86901; 94760; 94762; 96360; 96361; G0378; J0131; J0690; J2250; J2405; J2590; J3490

== ENCOUNTER 2023-07-13 18:29 | Emergency (ER) | payer MEDICAID ==
[~2023-07-13] VITALS: Ht 149.9 cm; Wt 81.8 kg
[~2023-07-13 18:29] MED LIST changes: +CEPH250C PO; +HYDR1TAB97 PO
[2023-07-13 18:47] VITALS: BP 102/60; RESP 18; O2SAT 96
[2023-07-13 19:15] VITALS: PULSE 129
[2023-07-13] MEDS ORDERED: ONDANSETRON ODT 4 MG TAB PO ONE (19:15)
[2023-07-13] MEDS ORDERED: SODIUM CHLORIDE 0.9% 1,000 ML IV ONE (19:15)
[2023-07-13 19:18] LABS: Basophils # (auto) 0 10 ^3/uL (0-0.2); Basophils % (auto) 0.3 % (0.0-2.0); Eosinophils # (auto) 0 10 ^3/uL (0-0.8); Eosinophils % (auto) 0.1 % (0.0-7.0); Hematocrit 40.9 % (36.0-46.0); Hemoglobin 13.8 g/dL (12.2-16.2); Lymphocytes # (auto) 1.3 10 ^3/uL (0.4-5.4); Lymphocytes % (auto) 10.9 % (10.0-50.0); Mean Corpuscular Hemoglobin 29.9 pg (28.0-32.0); Mean Corpuscular Hgb Conc. 33.7 g/dL (32.0-36.0); Mean Corpuscular Volume 88.7 fL (80.0-100.0); Monocytes # (auto) 0.8 10 ^3/uL (0-1.3); Monocytes % (auto) 6.1 % (0.0-12.0); Neutrophils # (auto) 10.2 10 ^3/uL (1.6-8.6); Neutrophils % (auto) 82.6 % (37.0-80.0); Red Blood Cells 4.61 10^6/uL (4.0-5.20); Red Cell Distribution Width 13.7 % (11.8-14.3); White Blood Cell 12.3 10^3/uL (4.4-10.8)
[2023-07-13 19:38] LABS: Alanine Aminotransferase 28 U/L (7-40); Albumin 4.6 g/dL (3.2-4.8); Alkaline Phosphatase 111 U/L (46-116); Anion Gap 8 (5-15); Aspartate Aminotransferase 14 U/L (13-40); BUN/Creatinine Ratio 20.8 (10.0-20.0); Bilirubin, Total 0.5 mg/dL (0.2-1.0); Blood Urea Nitrogen 15 mg/dL (9-23); Carbon Dioxide 22 mmol/L (20-30); Chloride 104 mmol/L (98-107); Glucose 92 mg/dL (74-106); Magnesium 1.8 mg/dL (1.6-2.6); Potassium 4.2 mmol/L (3.5-5.1); Sodium 134 mmol/L (136-145); Total Protein 7.2 g/dL (5.7-8.2)
[2023-07-13 20:45] LABS: Amphetamine Screen, Urine Neg (NEGATIVE); Barbiturate Scree,Urine Neg (NEGATIVE); Benzodiazephine Screen, Urine Neg (NEGATIVE)
[2023-07-13 20:46] LABS: Cannabinoid Screen, Urine Neg (NEGATIVE); Cocaine Screen, Urine Neg (NEGATIVE); Opiate Scree,Urine Neg (NEGATIVE); Phencyclidine Screen, Urine Neg (NEGATIVE)
[2023-07-13 20:47] LABS: Urine Bacteria MOD /hpf (None Seen); Urine Blood Negative /uL (Negative); Urine Clarity HAZY (Clear); Urine Color Yellow (Yellow); Urine Protein, UAD Negative (Negative); Urine Specific Gravity 1.025 (1.001-1.035); Urine Urobilinogen Normal (Negative); Urine WBC 2 /hpf (0 - 5)
== END 2023-07-14 01:34 | disposition left against medical advice (07) ==
LOC: ER 18:29
DX: R53.1 Weakness (principal); B34.9 Viral infection, unspecified; R51.9 Headache, unspecified; D72.829 Elevated white blood cell count, unspecified; Z32.02 Encounter for pregnancy test, result negative; Z79.899 Other long term (current) drug therapy
CPT/HCPCS: 36415; 71045; 80053; 80307; 81001; 81025; 83735; 84484; 85025; 93005

== ENCOUNTER 2024-04-27 16:13 | Emergency (ER) | payer MEDICAID ==
[~2024-04-27] VITALS: Ht 149.9 cm; Wt 100.0 kg
[2024-04-27 17:14] LABS: Basophils # (auto) 0.1 10 ^3/uL (0-0.2); Basophils % (auto) 0.9 % (0.0-2.0); Eosinophils # (auto) 0.1 10 ^3/uL (0-0.8); Eosinophils % (auto) 1.4 % (0.0-7.0); Hematocrit 36.7 % (36.0-46.0); Hemoglobin 12.8 g/dL (12.2-16.2); Lymphocytes # (auto) 2.9 10 ^3/uL (0.4-5.4); Lymphocytes % (auto) 28.3 % (10.0-50.0); Mean Corpuscular Hemoglobin 32.5 pg (28.0-32.0); Monocytes # (auto) 0.9 10 ^3/uL (0-1.3); Monocytes % (auto) 8.7 % (0.0-12.0); Neutrophils # (auto) 6.3 10 ^3/uL (1.6-8.6); Neutrophils % (auto) 60.7 % (37.0-80.0); Platelet Count (auto) 389 10^3/uL (140-450); Red Blood Cells 3.95 10^6/uL (4.0-5.20); Red Cell Distribution Width 12.6 % (11.8-14.3); White Blood Cell 10.3 10^3/uL (4.4-10.8)
[2024-04-27 17:27] LABS: Alanine Aminotransferase 14 U/L (7-40); Albumin 4.5 g/dL (3.2-4.8); Alkaline Phosphatase 74 U/L (46-116); Anion Gap 7 (5-15); Aspartate Aminotransferase 13 U/L (13-40); BUN/Creatinine Ratio 17.4 (10.0-20.0); Bilirubin, Total 0.3 mg/dL (0.2-1.0); Blood Urea Nitrogen 12 mg/dL (9-23); Calcium 9.6 mg/dL (8.7-10.4); Carbon Dioxide 22 mmol/L (20-31); Chloride 111 mmol/L (98-107); Glucose 90 mg/dL (74-106); Potassium 4.3 mmol/L (3.5-5.1); Sodium 140 mmol/L (136-145)
[2024-04-27] MEDS: ACETAMINOPHEN 500 MG TAB PO ONE (17:52)
[2024-04-27 18:17] LABS: Urine Bacteria None Seen /hpf (None Seen)
[2024-04-27 18:43] LABS: Urine Blood 3+ /uL (Negative); Urine Clarity Ex.Turbid (Clear); Urine Color Light-Red (Yellow); Urine Protein, UAD 1+ (Negative); Urine Urobilinogen Normal (Negative); Urine WBC 137 /hpf (0 - 5); Urine pH 5.5 (5.0-9.0)
[2024-04-27] MEDS ORDERED: NITR-87 PO (19:04)
[2024-04-27] MEDS ORDERED: ACET500T58 PO (19:04)
[2024-04-27] MEDS: NITROFURANTOIN 100 mg CAP PO ONE (19:23)
[2024-04-27 19:25] VITALS: BP 114/65; PULSE 83; RESP 17; TEMP 98.2; O2SAT 99
== END 2024-04-27 19:31 | disposition home or self-care (01) ==
LOC: ER 16:13
DX: N93.9 Abnormal uterine and vaginal bleeding, unspecified (principal); R10.2 Pelvic and perineal pain; N39.0 Urinary tract infection, site not specified; F41.9 Anxiety disorder, unspecified; Z79.899 Other long term (current) drug therapy; Z98.890 Other specified postprocedural states
CPT/HCPCS: 36415; 80053; 81001; 81025; 84702; 85025

== ENCOUNTER 2024-10-26 09:09 | Emergency (ER) | payer MEDICAID ==
[~2024-10-26] VITALS: Ht 149.9 cm; Wt 95.9 kg
[~2024-10-26 09:09] MED LIST changes: +ACET500T58 PO; +NITR-87 PO
--- NOTE | 2024-10-26 10:14 | ED.PDOC ---
History of Present Illness HPI Comments 24Y F with PMHx anxiety, dizziness and dizziness x1 day. Pt describes dizziness as the room spinning and it improves when her eyes are closed. Pt had one episode last night and one episode this morning. Pt also reports vaginal bleeding and vaginal soreness after having intercourse 2 days ago. Pt states she woke up with clots with mendez tissue and blood today. LMP 09/02/2024. No other symptoms reported. Chief Complaint: Syncope Time Seen by MD: 09:42 Primary Care Provider: ANDIE Reviewed Notes: Nurses Notes, Medications, Allergies Allergies: Coded Allergies: No Known Drug Allergy (Verified Allergy, Unknown, 03/16/21) Penicillins (Verified Allergy, Unknown, 10/26/24) Home Meds Active Scripts Acetaminophen (Acetaminophen) 500 Mg Tab, 500 MG PO Q4HP PRN, #30 TAB Prov:KEVIN DALE PAC 04/27/24 Nitrofurantoin Monohydrate Mac (Macrobid) 100 Mg Cap, 100 MG PO BID for 7 Days, #14 CAP Prov:KEVIN DALE PAC 04/27/24 Cephalexin (KEFLEX CAPSULE) 250 Mg Cp, 1 CAP PO QID PRN for 7 Days, #28 CAP 0 Refills Prov:JONO CUTLER DO 03/20/23 Hydrocodone-Acetaminophen (Hydrocodone/Acetaminophen 5-325 mg) 1 Tab Tab, 1 TAB PO BID for 10 Days, #20 TAB 0 Refills Prov:JONO CUTLER DO 03/20/23 Cephalexin (KEFLEX CAPSULE) 250 Mg Cp, 1 CAP PO QID, #28 CAP 0 Refills Prov:JONO CUTLER DO 03/20/23 Hydrocodone-Acetaminophen (Hydrocodone/Acetaminophen 5-325 mg) 1 Tab Tab, 1 TAB PO 6XD PRN for 10 Days, #60 TAB Prov:JONO CUTLER DO 03/20/23 Cephalexin (KEFLEX CAPSULE) 250 Mg Cp, 500 CAP PO QID PRN for 7 Days, #28 CAP 1 Refill Prov:JONO CUTLER DO 03/20/23 Cephalexin (KEFLEX CAPSULE) 250 Mg Cp, 1 CAP PO QID, #28 CAP Prov:JONO CUTLER DO 03/20/23 Hydrocodone-Acetaminophen (Hydrocodone/Acetaminophen 5-325 mg) 1 Tab Tab, 1 TAB PO BID for 10 Days, #20 TAB Prov:JONO CUTLER 03/20/23 Cephalexin (KEFLEX CAPSULE) 250 Mg Cp, 1 CAP PO QID PRN for 7 Days, #28 CAP Prov:JONO CUTLER 03/20/23 Cephalexin (KEFLEX CAPSULE) 250 Mg Cp, 1 CAP PO QID PRN for 15 Days, #28 CAP 0 Refills Prov:JONO CUTLER 03/20/23 Hydrocodone-Acetaminophen (Hydrocodone/Acetaminophen 5-325 mg) 1 Tab Tab, 1 TAB PO 6XD PRN for 10 Days, #60 TAB Prov:JONO CUTLER 03/20/23 Ondansetron Odt 4MG Tab (ZOFRAN PO) 4 Mg Tb, 4 MG PO TIDP PRN for 30 Days, #90 TAB ODT TAB-DISSOLVE IN MOUTH, THEN SWALLOW Prov:AARTITWYLAMERVIN LOZANOGIOVANNA [facility] 02/09/23 Sertraline Hcl (Zoloft) 25 Mg Tab, 50 MG PO DAILY for 60 Days, #120 TAB 3 Ref ills Prov:AARTIMCKINLEYMERVINGIOVANNA [facility] 02/09/23 Vit W/ Ferrous Fumara ( One Daily) Daily Tab, 1 TAB PO DAILY, #90 TAB 3 Refills Prov:AARTIRODMERVIN CHADWICKGIOVANNA [facility] 02/09/23 Information Source: Patient Mode of Arrival: Ambulatory Severity: Mild Timing: Days Duration: Since onset Prehospital treatment: None Past Medical History PAST MEDICAL HISTORY: Anxiety 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 Family History Family History: No family hx of Cancer, No family hx of DM, No family hx of Heart [place] Social History Smoker: Non-Smoker Alcohol: Occasionally Drugs: Denies Drug Use Lives In: Home Constitutional: denies: chills, diaphoresis, fatigue, fever, malaise, sweats, weakness, others EENTM: denies: blurred vision, double vision, ear bleeding, ear discharge, ear drainage, ear pain, ear ringing, eye pain, eye redness, hearing loss, mouth pain, mouth swelling, nasal discharge, nose bleeding, nose congestion, nose pain, photophobia, tearing, throat pain, throat swelling, voice changes, others Respiratory: denies: cough, hemoptysis, orthopnea, SOB at rest, shortness of breath, SOB with excertion, stridor, wheezing, others Cardiovascular: denies: chest pain, dizzy spells, diaphoresis, Dyspnea on exertion, edema, irregular heart beat, left arm pain, lightheadedness, palpitations, PND, syncope, others Gastrointestinal: denies: abdomen distended, abdominal pain, blood streaked bowels, constipated, diarrhea, dysphagia, difficulty swallowing, hematemesis, melena, nausea, poor appetite, poor fluid intake, rectal bleeding, rectal pain, vomiting, others Genitourinary: reports: abnormal vagina bleeding, pain; denies: burning, dyspareunia, dysuria, flank pain, frequency, hematuria, incontinence, , vagina discharge, urgency, others Neurological: reports: dizziness; denies: fainting, headache, left sided numbness, left sided weakness, numbness, paresthesia, pre-existing deficit, right sided numbness, right sided weakness, seizure, speech problems, tingling, tremors, weakness, others Musculoskeletal: denies: back pain, gout, joint pain, joint swelling, muscle pain, muscle stiffness, neck pain, others Integumetry: denies: bruises, change in color, change in hair/nails, dryness, laceration, lesions, lumps, rash, wounds, others Allergic/Immunocompromised: denies: Difficulty Healing, Frequent Infections, Hives, Itching, others Hematologic/Lymphatic: denies: anemia, blood clots, easy bleeding, easy bruising, swollen glands, others Endocrine: denies: excessive hunger, excessive sweating, excessive thirst, excessive urination, flushing, intolerance to cold, intolerance to heat, unex plained weight gain, unexplained weight loss, others Psychiatric: denies: anxiety, bipolar disorder, depression, hopeless, panic disorder, schizophrenia, sleepless, suicidal, others All Other Systems: Reviewed and Negative Physical Exam General Appearance: No Apparent Distress, Normal HEENT: Normal ENT Inspection, Pharynx Normal, TMs Normal Neck: Full Range of Motion, Non-Tender, Normal, Normal Inspection Respiratory: Chest Non-Tender, Lungs Clear, No Accessory Muscle Use, No Respiratory Distress, Normal Breath Sounds Cardiovascular: No Edema, No Murmur, No Gallop, Normal Peripheral Pulses, Regu lar Rate/Rhythm Breast Exam: Deferred Gastrointestinal: No Organomegaly, Non Tender, Normal Bowel Sounds, Soft Genitalia: Deferred Pelvic: Deferred Rectal: Deferred Extremities: No calf tenderness, Normal capillary refill, Normal inspection, Normal range of motion, Non-tender Musculoskeletal : Apperance: Normal Neurologic: Alert, social director II-XII nml as Tested, No Motor Deficits, Normal Affect, Normal Mood, No Sensory Deficits Cerebellar Function: NOT DONE Reflexes: NOT DONE Skin: Dry, Normal Color, Warm Lymphatic: No Adenopathy Was a procedure done? Was a procedure done?: No Differential Dx Considerations may include: , near syncope, miscarriage X-Ray, Labs, Meds, VS Vital Signs Date Time Temp Pulse Resp B/P (MAP) Pulse Ox O2 Delivery O2 Flow Rate FiO2 10/26/24 12:15 97.9 91 16 133/98 (110) 95 97.9 10/26/24 09:43 Room Air* 0 21 10/26/24 09:20 99.0 82 18 118/79 (92) 98 99.0 Lab Test 10/26/24 10:13 10/26/24 09:26 10/26/24 09:20 Range/Units White Blood Count 6.0 4.4-10.8 10^3/uL Red Blood Count 4.31 4.0-5.20 10^6/uL Hemoglobin 12.4 12.2-16.2 g/dL Hematocrit 37.8 36.0-46.0 % Mean Corpuscular Volume 87.8 80.0-100.0 fL Mean Corpuscular Hemoglobin 28.7 28.0-32.0 pg Mean Corpuscular Hemoglobin Concent 32.7 32.0-36.0 g/dL Red Cell Distribution Width 16.7 H 11.8-14.3 % Platelet Count 440 140-450 10^3/uL Mean Platelet Volume 7.3 6.9-10.8 fL Neutrophils (%) (Auto) 57.2 37.0-80.0 % Lymphocytes (%) (Auto) 31.4 10.0-50.0 % Monocytes (%) (Auto) 7.8 0.0-12.0 % Eosinophils (%) (Auto) 2.4 0.0-7.0 % Basophils (%) (Auto) 1.2 0.0-2.0 % Neutrophils # (Auto) 3.4 1.6-8.6 10 ^3/uL Lymphocytes # (Auto) 1.9 0.4-5.4 10 ^3/uL Monocytes # (Auto) 0.5 0-1.3 10 ^3/uL Eosinophils # (Auto) 0.1 0-0.8 10 ^3/uL Basophils # (Auto) 0.1 0-0.2 10 ^3/uL Nucleated Red Blood Cells 0.1 % Sodium Level 141 136-145 mmol/L Potassium Level 4.1 3.5-5.1 mmol/L Chloride Level 110 H 98-107 mmol/L Carbon Dioxide Level 22 20-31 mmol/L Anion Gap 9 5-15 Blood Urea Nitrogen 11 9-23 mg/dL Creatinine 0.69 0.550-1.02 mg/dL Glomerular Filtration Rate Calc 124 >90 mL/min BUN/Creatinine Ratio 15.9 10.0-20.0 Serum Glucose 100 74-106 mg/dL Calcium Level 9.3 8.7-10.4 mg/dL Total Bilirubin 0.3 0.2-1.0 mg/dL Aspartate Amino Transferase (AST) 13 13-40 U/L Alanine Aminotransferase (ALT) 14 7-40 U/L Alkaline Phosphatase 85 46-116 U/L Total Protein 7.1 5.7-8.2 g/dL Albumin 4.6 3.2-4.8 g/dL Beta HCG, Quantitative 0.8 L 1.5-4.2 mIU/mL Urine Color Light-orange Yellow Urine Clarity Turbid H Clear Urine pH 5.5 5.0-9.0 Urine Specific [place] 1.026 1.001-1.035 Urine Protein Trace H Negative Urine Ketones Negative Negative Urine Blood Trace H Negative /uL Urine Nitrite Negative Negative Urine Bilirubin Negative Negative Urine Urobilinogen Normal Negative mg/dL Urine Leukocyte Esterase 1+ Negative /uL Urine RBC 11 0 - 4 /hpf Urine Microscopic WBC 19 H 0-5 /HPF Urine Squamous Epithelial Cells Many <5 /hpf Urine Bacteria Few H None Seen /hpf Urine Mucus Few None Seen Urine Glucose Normal Normal mg/dL POC Glucose 106 70-106 mg/dl X-Ray, Labs, Meds, VS Comment This 24-year-old female presents secondary to hematuria and possible vaginal bleeding. Her workup here is, benign except for UA is positive leukocyte esterase and blood. This may be a UTI. As such, she will be discharged home with a prescription for Macrobid. Her workup was otherwise negative. However, she was asked to follow up with the PCP in next 1-2 days return to the ER for any new/worrisome/worsening symptoms. Time of 1ST Reevaluation: 10:12 Reevaluation 1ST: Unchanged Patient Education/Counseling: Diagnosis, Treatment Family Education/Counseling: No Family Present Departure 1 Departure Time of Disposition: 13:28 Impression: Primary Impression: UTI (urinary tract infection) Additional Impression: Hematuria Disposition: 01 HOME / SELF CARE / HOMELESS Condition: Good Discharged With: Self Critical Care Note Critical Care Time?: No Stability Stability form required: No Heart Score Heart Score: Heart Score Response (Comments) Value History N/A 0 EKG N/A 0 Age N/A 0 Risk Factors N/A 0 Troponin N/A 0 Total 0 I personally scribed for RUSSELL PETTIT MD ([email or web address]) on 10/26/24 at 10:14. Electronically submitted by Iris Arce ([email or web address]). RUSSELL PETTIT MD Oct 26, 2024 10:14
[2024-10-26 10:24] LABS: Basophils # (auto) 0.1 10 ^3/uL (0-0.2); Basophils % (auto) 1.2 % (0.0-2.0); Eosinophils # (auto) 0.1 10 ^3/uL (0-0.8); Eosinophils % (auto) 2.4 % (0.0-7.0); Hematocrit 37.8 % (36.0-46.0); Hemoglobin 12.4 g/dL (12.2-16.2); Lymphocytes # (auto) 1.9 10 ^3/uL (0.4-5.4); Lymphocytes % (auto) 31.4 % (10.0-50.0); Mean Corpuscular Hemoglobin 28.7 pg (28.0-32.0); Mean Corpuscular Hgb Conc. 32.7 g/dL (32.0-36.0); Mean Corpuscular Volume 87.8 fL (80.0-100.0); Monocytes # (auto) 0.5 10 ^3/uL (0-1.3); Monocytes % (auto) 7.8 % (0.0-12.0); Neutrophils # (auto) 3.4 10 ^3/uL (1.6-8.6); Neutrophils % (auto) 57.2 % (37.0-80.0); Nucleated Red Blood Cells % 0.1 %; Platelet Count (auto) 440 10^3/uL (140-450); Red Blood Cells 4.31 10^6/uL (4.0-5.20); Red Cell Distribution Width 16.7 % (11.8-14.3)
[2024-10-26 10:41] LABS: Alanine Aminotransferase 14 U/L (7-40); Alkaline Phosphatase 85 U/L (46-116); Anion Gap 9 (5-15); BUN/Creatinine Ratio 15.9 (10.0-20.0); Blood Urea Nitrogen 11 mg/dL (9-23); Calcium 9.3 mg/dL (8.7-10.4); Carbon Dioxide 22 mmol/L (20-31); Glucose 100 mg/dL (74-106); Potassium 4.1 mmol/L (3.5-5.1); Sodium 141 mmol/L (136-145); Total Protein 7.1 g/dL (5.7-8.2)
[2024-10-26 10:42] LABS: Albumin 4.6 g/dL (3.2-4.8); Bilirubin, Total 0.3 mg/dL (0.2-1.0)
[2024-10-26 10:48] LABS: Aspartate Aminotransferase 13 U/L (13-40); Chloride 110 mmol/L (98-107)
[2024-10-26 12:15] VITALS: BP 133/98; PULSE 91; RESP 16; TEMP 97.9; O2SAT 95
[2024-10-26 12:39] LABS: Urine Bacteria FEW /hpf (None Seen); Urine Blood TRACE /uL (Negative); Urine Clarity Turbid (Clear); Urine Color Light-Orange (Yellow); Urine Mucus FEW (None Seen); Urine Protein, UAD TRACE (Negative); Urine Specific Gravity 1.026 (1.001-1.035); Urine Squamous Epithelial Cell MANY /hpf (<5); Urine Urobilinogen Normal (Negative); Urine WBC 19 /HPF (0-5); Urine pH 5.5 (5.0-9.0)
--- NOTE | 2024-10-26 13:04 | DVH ---
INDICATION: VAG BLEED TECHNIQUE: Multiple real-time grayscale transabdominal sonographic images along with color and duplex Doppler of the uterus and ovaries were obtained. COMPARISON: None FINDINGS: The uterus measures 10.8 x 4.3 x 3.3 cm. The endometrial stripe measures 0.11 cm. The right ovary measures 3.1 x 1.7 x 1.8 cm. Volume of the right ovary is 5 cc The left ovary measures 3.1 x 1.3 x 2.3 cm. Volume of the left ovary is 5 cc Subsequent color and duplex Doppler interrogation of the ovaries demonstrated symmetric vascular flow to both ovaries, though this does not exclude the possibility of torsion due to the dual blood suppl y. IMPRESSION: 1. Enlarged heterogeneous uterus. HS:Y
[2024-10-26] MEDS ORDERED: NITR-87 PO (13:30)
== END 2024-10-26 13:38 | disposition home or self-care (01) ==
LOC: ER 09:20
DX: N39.0 Urinary tract infection, site not specified (principal); R31.9 Hematuria, unspecified; Z79.899 Other long term (current) drug therapy; Z88.0 Allergy status to penicillin
CPT/HCPCS: 36415; 76856; 80053; 81001; 82962; 84702; 85025

== ENCOUNTER 2024-11-11 03:07 | Emergency (ER) | payer MEDICAID ==
[~2024-11-11] VITALS: Ht 149.9 cm; Wt 96.7 kg
[2024-11-11] MEDS ORDERED: AUG875T PO (04:08)
--- NOTE | 2024-11-11 04:08 | ED.PDOC ---
Eye-HPI HPI Comments PT PRESENTED TO ED FOR SORETHROAT, RIGHT EARACHE WITH RINGING IN THE EARS AND H EADACHE X2 DAYS. DENIES DIFFICULTY BREATHING, CHEST PAIN OR SHORTNESS BREATH. Chief Complaint: Sore Throat Time Seen by MD: 03:14 Primary Care Provider: ANDIE Reviewed Notes: Nurses Notes, Medications, Allergies Allergies: Coded Allergies: No Known Drug Allergy (Verified Allergy, Unknown, 03/16/21) Penicillins (Verified Allergy, Unknown, 10/26/24) Home Meds Active Scripts Amoxicillin & Pot Clavulanate (AUGMENTIN TABLET) 875 Mg Tb, 875 MG PO BID for 10 Days, #20 TAB Prov:TARA MARTINEZ [employer]ANQUET WAITER/WAITRESS 11/11/24 Nitrofurantoin Monohydrate Mac (Macrobid) 100 Mg Cap, 100 MG PO BID, #10 CAP Prov:RUSSELL PETTIT MD 10/26/24 Acetaminophen (Acetaminophen) 500 Mg Tab, 500 MG PO Q4HP PRN, #30 TAB Prov:KEVIN DALE PAC 04/27/24 Nitrofurantoin Monohydrate Mac (Macrobid) 100 Mg Cap, 100 MG PO BID for 7 Days, #14 CAP Prov:KEVIN DALE PAC 04/27/24 Cephalexin (KEFLEX CAPSULE) 250 Mg Cp, 1 CAP PO QID PRN for 7 Days, #28 CAP 0 Refills Prov:JONO CUTLER DO 03/20/23 Hydrocodone-Acetaminophen (Hydrocodone/Acetaminophen 5-325 mg) 1 Tab Tab, 1 TAB PO BID for 10 Days, #20 TAB 0 Refills Prov:JONO CUTLER DO 03/20/23 Cephalexin (KEFLEX CAPSULE) 250 Mg Cp, 1 CAP PO QID, #28 CAP 0 Refills Prov:JONO CUTLER DO 03/20/23 Hydrocodone-Acetaminophen (Hydrocodone/Acetaminophen 5-325 mg) 1 Tab Tab, 1 TAB PO 6XD PRN for 10 Days, #60 TAB Prov:JONO CUTLER DO 03/20/23 Cephalexin (KEFLEX CAPSULE) 250 Mg Cp, 500 CAP PO QID PRN for 7 Days, #28 CAP 1 Refill Prov:JONO CUTLER DO 03/20/23 Cephalexin (KEFLEX CAPSULE) 250 Mg Cp, 1 CAP PO QID, #28 CAP Prov:JONO CUTLER DO 03/20/23 Hydrocodone-Acetaminophen (Hydrocodone/Acetaminophen 5-325 mg) 1 Tab Tab, 1 TAB PO BID for 10 Days, #20 TAB Prov:JONO CUTLER 03/20/23 Cephalexin (KEFLEX CAPSULE) 250 Mg Cp, 1 CAP PO QID PRN for 7 Days, #28 CAP Prov:JONO CUTLER 03/20/23 Cephalexin (KEFLEX CAPSULE) 250 Mg Cp, 1 CAP PO QID PRN for 15 Days, #28 CAP 0 Refills Prov:JONO CUTLER 03/20/23 Hydrocodone-Acetaminophen (Hydrocodone/Acetaminophen 5-325 mg) 1 Tab Tab, 1 TAB PO 6XD PRN for 10 Days, #60 TAB Prov:JONO CUTLER 03/20/23 Ondansetron Odt 4MG Tab (ZOFRAN PO) 4 Mg Tb, 4 MG PO TIDP PRN for 30 Days, #90 TAB ODT TAB-DISSOLVE IN MOUTH, THEN SWALLOW Prov:AARTIMCKINLEYMERVINGIOVANNA [facility] 02/09/23 Sertraline Hcl (Zoloft) 25 Mg Tab, 50 MG PO DAILY for 60 Days, #120 TAB 3 Refills Prov:EMILMERVINGIOVANNA [facility] 02/09/23 Vit W/ Ferrous Fumara ( One Daily) Daily Tab, 1 TAB PO DAILY, #90 TAB 3 Refills Prov:MERVIN STEINGIOVANNA [facility] 02/09/23 Mode of Arrival: Ambulatory Past Medical History PAST MEDICAL HISTORY: Anxiety 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 Family History Family History: No family hx of Cancer, No family hx of DM, No family hx of Heart [place] Social History Smoker: Non-Smoker Alcohol: Occasionally Drugs: Denies Drug Use Lives In: Home Constitutional: denies: chills, diaphoresis, fatigue, fever, malaise, sweats, weakness, others EENTM: reports: ear pain, throat pain, throat swelling; denies: blurred vision, double vision, ear bleeding, ear discharge, ear drainage, ear ringing, eye pain, eye redness, hearing loss, mouth pain, mouth swelling, nasal discharge, nose bleeding, nose congestion, nose pain, photophobia, tearing, voice changes, others Respiratory: denies: cough, hemoptysis, orthopnea, SOB at rest, shortness of breath, SOB with excertion, stridor, wheezing, others Cardiovascular: denies: chest pain, dizzy spells, diaphoresis, Dyspnea on exertion, edema, irregular heart beat, left arm pain, lightheadedness, palpitations, PND, syncope, others Gastrointestinal: denies: abdomen distended, abdominal pain, blood streaked bowels, constipated, diarrhea, dysphagia, difficulty swallowing, hematemesis, melena, nausea, poor appetite, poor fluid intake, rectal bleeding, rectal pain, vomiting, others Genitourinary: denies: abnormal vagina bleeding, burning, dyspareunia, dysuria, flank pain, frequency, hematuria, incontinence, pain, , vagina discharge, urgency, others Neurological: denies: dizziness, fainting, headache, left sided numbness, left sided weakness, numbness, paresthesia, pre-existing deficit, right sided numbness, right sided weakness, seizure, speech problems, tingling, tremors, weakness, others Musculoskeletal: denies: back pain, gout, joint pain, joint swelling, muscle pain, muscle stiffness, neck pain, others Integumetry: denies: bruises, change in color, change in hair/nails, dryness, laceration, lesions, lumps, rash, wounds, others Allergic/Immunocompromised: denies: Difficulty Healing, Frequent Infections, Hives, Itching, others Hematologic/Lymphatic: denies: anemia, blood clots, easy bleeding, easy bruising, swollen glands, others Endocrine: denies: excessive hunger, excessive sweating, excessive thirst, excessive urination, flushing, intolerance to cold, intolerance to heat, unexplained weight gain, unexplained weight loss, others Psychiatric: denies: anxiety, bipolar disorder, depression, hopeless, panic disorder, schizophrenia, sleepless, suicidal, others Physical Exam General Appearance: No Apparent Distress, Normal HEENT: Pharyngeal Erythema (TONSILS GRADE 3 WITHOUT EXUDATE), TMs Normal Neck: Full Range of Motion, Non-Tender Respiratory: Lungs Clear, No Respiratory Distress, Normal Breath Sounds Cardiovascular: No Edema, No JVD, No Murmur, No Gallop, Normal Peripheral Pulses, Regular Rate/Rhythm Breast Exam: Deferred Gastrointestinal: No Organomegaly, Non Tender, No Pulsatile Mass, Normal Bowel Sounds, Soft Genitalia: Deferred Pelvic: Deferred Rectal: Deferred Extremities: No calf tenderness, Normal capillary refill, Normal inspection, Normal range of motion, Non-tender, No pedal edema Musculoskeletal : Apperance: Normal Neurologic: Alert, semi driver II-XII nml as Tested, No Motor Deficits, Normal Affect, Normal Mood, No Sensory Deficits Cerebellar Function: Normal Reflexes: Normal Skin: Dry, Normal Color, Warm Lymphatic: No Adenopathy Was a procedure done? Was a procedure done?: No EENT DIFF Eye: N/A Sore Throat: Peritonsillar Abscess, Peritonsillar Cellulitis, Pharyngitis, Streptococcal X-Ray, Labs, Meds, VS Vital Signs Date Time Temp Pulse Resp B/P (MAP) Pulse Ox O2 Delivery O2 Flow Rate FiO2 11/11/24 03:25 98.8 96 18 116/57 (76) 97 98.8 X-Ray, Labs, Meds, VS Comment DECADRON 10 MG IM FOR THE PAIN AND SWELLING REPORTS IMPROVEMENT REQUESTING DISCHARGE AT THIS TIME. SCRIPT AUGMENTIN TWICE DAILY TIMES 10 DAYS. [id number] TYLENOL AND MOTRIN NEEDED FOR PAIN OR FEVER PER LABELED DOSING INSTRUCTIONS. REST INCREASE P.O. FLUIDS WITH ELECTROLYTES. FOLLOW UP WITH YOUR PCP IN 1-2 DAYS NECESSARY. RETURN PRECAUTIONS GIVEN PATIENT IN DICATES UNDERSTANDING AGREES WITH DISCHARGE PLAN OF CARE. Time of 1ST Reevaluation: 04:06 Reevaluation 1ST: Improved Patient Education/Counseling: Diagnosis, Treatment, Prognosis, Need For Follow Up Family Education/Counseling: No Family Present Departure 1 Departure Time of Disposition: 04:07 Impression: Primary Impression: Pharyngitis Qualified Codes: J02.9 - Acute pharyngitis, unspecified Disposition: 01 HOME / SELF CARE / HOMELESS Condition: Stable e-Prescriptions Amoxicillin & Pot Clavulanate (AUGMENTIN TABLET) 875 Mg Tb 875 MG PO BID for 10 Days, #20 TAB Prov: TARA MARTINEZ 11/11/24 Discharged With: Significant Other Critical Care Note Critical Care Time?: No Stability Stability form required: TARA Cheatham Nov 11, 2024 04:08
[2024-11-11] MEDS: DexAMETHasone SOD PHOS 10MG/1ML VIAL INJ IM ONE (04:24)
[2024-11-11 04:28] VITALS: BP 111/68; PULSE 94; RESP 19; TEMP 98.5; O2SAT 98
== END 2024-11-11 05:09 | disposition home or self-care (01) ==
LOC: ER 03:07
DX: J02.9 Acute pharyngitis, unspecified (principal); H93.11 Tinnitus, right ear; F41.9 Anxiety disorder, unspecified; Z79.899 Other long term (current) drug therapy; Z88.0 Allergy status to penicillin; Z98.890 Other specified postprocedural states
CPT/HCPCS: 96372; 99283; J1100

== ENCOUNTER 2025-01-12 07:18 | Emergency (ER) | payer MEDICAID ==
[~2025-01-12] VITALS: Ht 149.9 cm; Wt 93.9 kg
[2025-01-12] MEDS: ONDANSETRON ODT 4 MG TAB PO ONE (07:46)
[2025-01-12] MEDS: MECLIZINE HCL 25 MG TAB PO ONE (07:46)
[2025-01-12] MEDS: ALPRAZolam 0.25 MG TAB PO ONE (07:46)
--- NOTE | 2025-01-12 07:49 | ED.PDOC ---
History of Present Illness HPI Comments 24F presents to the ER w/ prior MHx of Anxiety;SHx of Back Sx, and the c/c of N/V. Pt reports on having lightheadedness which the ground moves w/ N/ and started yesterday but worsened today. Pt's LMP was December 08. No other associated symptoms, modifiers, recent injuries or sick contacts present at this time. Chief Complaint: Nausea/Vomiting Time Seen by MD: 07:30 Primary Care Provider: ANDIE Reviewed Notes: Nurses Notes, Medications, Allergies Allergies: Coded Allergies: No Known Drug Allergy (Verified Allergy, Unknown, 03/16/21) Penicillins (Verified Allergy, Unknown, 10/26/24) Home Meds Active Scripts Nitrofurantoin Monohydrate Mac (Macrobid) 100 Mg Cap, 100 MG PO BID, #10 CAP Prov:RUSSELL PETTIT MD 10/26/24 Acetaminophen (Acetaminophen) 500 Mg Tab, 500 MG PO Q4HP PRN, #30 TAB Prov:KEVIN DALE PAC 04/27/24 Nitrofurantoin Monohydrate Mac (Macrobid) 100 Mg Cap, 100 MG PO BID for 7 Days, #14 CAP Prov:KEVIN DALE PAC 04/27/24 Cephalexin (KEFLEX CAPSULE) 250 Mg Cp, 1 CAP PO QID PRN for 7 Days, #28 CAP 0 Refills Prov:JONO CUTLER DO 03/20/23 Hydrocodone-Acetaminophen (Hydrocodone/Acetaminophen 5-325 mg) 1 Tab Tab, 1 TAB PO BID for 10 Days, #20 TAB 0 Refills Prov:JONO CUTLER DO 03/20/23 Cephalexin (KEFLEX CAPSULE) 250 Mg Cp, 1 CAP PO QID, #28 CAP 0 Refills Prov:JONO CUTLER DO 03/20/23 Hydrocodone-Acetaminophen (Hydrocodone/Acetaminophen 5-325 mg) 1 Tab Tab, 1 TAB PO 6XD PRN for 10 Days, #60 TAB Prov:JONO CUTLER DO 03/20/23 Cephalexin (KEFLEX CAPSULE) 250 Mg Cp, 500 CAP PO QID PRN for 7 Days, #28 CAP 1 Refill Prov:JONO CUTLER DO 03/20/23 Cephalexin (KEFLEX CAPSULE) 250 Mg Cp, 1 CAP PO QID, #28 CAP Prov:JONO CUTLER 03/20/23 Hydrocodone-Acetaminophen (Hydrocodone/Acetaminophen 5-325 mg) 1 Tab Tab, 1 TAB PO BID for 10 Days, #20 TAB Prov:JONO CUTLER 03/20/23 Cephalexin (KEFLEX CAPSULE) 250 Mg Cp, 1 CAP PO QID PRN for 7 Days, #28 CAP Prov:JONO CUTLER 03/20/23 Cephalexin (KEFLEX CAPSULE) 250 Mg Cp, 1 CAP PO QID PRN for 15 Days, #28 CAP 0 Refills Prov:JONO CUTLER 03/20/23 Hydrocodone-Acetaminophen (Hydrocodone/Acetaminophen 5-325 mg) 1 Tab Tab, 1 TAB PO 6XD PRN for 10 Days, #60 TAB Prov:JONO CUTLER 03/20/23 Ondansetron Odt 4MG Tab (ZOFRAN PO) 4 Mg Tb, 4 MG PO TIDP PRN for 30 Days, #90 TAB ODT TAB-DISSOLVE IN MOUTH, THEN SWALLOW Prov:MILY STEIN [facility] 02/09/23 Sertraline Hcl (Zoloft) 25 Mg Tab, 50 MG PO DAILY for 60 Days, #120 TAB 3 Refills Prov:MILY STEIN [facility] 02/09/23 Vit W/ Ferrous Fumara ( One Daily) Daily Tab, 1 TAB PO DAILY, #90 TAB 3 Refills Prov:MILY STEIN [facility] 02/09/23 Information Source: Patient Mode of Arrival: Ambulatory Severity: Moderate Timing: Hours Duration: Since onset, Hours Prehospital treatment: None Past Medical History PAST MEDICAL HISTORY: Anxiety Surgical History: Surgical History (Other): Back Sx RN 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 CARE History: Spontaneous Family History Family History: Reviewed,noncontributory to illness, Unknown Social History Smoker: Non-Smoker Alcohol: Occasionally Drugs: Denies Drug Use Lives In: Home Constitutional: reports: others (Lightheaded); denies: chills, diaphoresis, fatigue, fever, malaise, sweats, weakness EENTM: denies: blurred vision, double vision, ear bleeding, ear discharge, ear drainage, ear pain, ear ringing, eye pain, eye redness, hearing loss, mouth pain, mouth swelling, nasal discharge, nose bleeding, nose congestion, nose pain, photophobia, tearing, throat pain, throat swelling, voice changes, others Respiratory: denies: cough, hemoptysis, orthopnea, SOB at rest, shortness of breath, SOB with excertion, stridor, wheezing, others Cardiovascular: denies: chest pain, dizzy spells, diaphoresis, Dyspnea on exertion, edema, irregular heart beat, left arm pain, lightheadedness, palpitations, PND, syncope, others Gastrointestinal: reports: nausea; denies: abdomen distended, abdominal pain, blood streaked bowels, constipated, diarrhea, dysphagia, difficulty swallowing, hematemesis, melena, poor appetite, poor fluid intake, rectal bleeding, rectal pain, vomiting, others Genitourinary: denies: abnormal vagina bleeding, burning, dyspareunia, dysuria, flank pain, frequency, hematuria, incontinence, pain, , vagina discharge, urgency, others Neurological: denies: dizziness, fainting, headache, left sided numbness, left sided weakness, numbness, paresthesia, pre-existing deficit, right sided numbness, right sided weakness, seizure, speech problems, tingling, tremors, w eakness, others Musculoskeletal: denies: back pain, gout, joint pain, joint swelling, muscle pain, muscle stiffness, neck pain, others Integumetry: denies: bruises, change in color, change in hair/nails, dryness, laceration, lesions, lumps, rash, wounds, others Allergic/Immunocompromised: denies: Difficulty Healing, Frequent Infections, Hives, Itching, others Hematologic/Lymphatic: denies: anemia, blood clots, easy bleeding, easy bruising, swollen glands, others Endocrine: denies: excessive hunger, excessive sweating, excessive thirst, excessive urination, flushing, intolerance to cold, intolerance to heat, unexplained weight gain, unexplained weight loss, others Psychiatric: denies: anxiety, bipolar disorder, depression, hopeless, panic disorder, schizophrenia, sleepless, suicidal, others All Other Systems: Reviewed and Negative Physical Exam Exam Comments N/ General Appearance: No Apparent Distress, Normal HEENT: Normal ENT Inspection, Pharynx Normal, TMs Normal Neck: Full Range of Motion, Non-Tender, Normal, Normal Inspection Respiratory: Chest Non-Tender, Lungs Clear, No Accessory Muscle Use, No Respiratory Distress, Normal Breath Sounds Cardiovascular: No Edema, No JVD, No Murmur, No Gallop, Normal Peripheral Pul ses, Regular Rate/Rhythm Breast Exam: Deferred Gastrointestinal: No Organomegaly, Non Tender, No Pulsatile Mass, Normal Bowel Sounds, Soft Genitalia: Deferred Pelvic: Deferred Rectal: Deferred Extremities: No calf tenderness, Normal capillary refill, Normal inspection, Normal range of motion, Non-tender, No pedal edema Musculoskeletal : Apperance: Normal Neurologic: 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 Was a procedure done?: No Differential Dx Considerations may include: viral illness, morning sickness, hyperemesis gravidarum, CHS, sbo, ileus, appendicitis, gastroenteritis, BPV X-Ray, Labs, Meds, VS Vital Signs Date Time Temp Pulse Resp B/P (MAP) Pulse Ox O2 Delivery O2 Flow Rate FiO2 01/12/25 07:52 82 16 98 Room Air* 0 21 01/12/25 07:52 98.8 82 16 123/66 (85) 98 98.8 01/12/25 07:29 97.4 88 17 133/75 (94) 98 97.4 Lab Test 01/12/25 08:05 01/12/25 07:30 Range/Units Beta HCG, Quantitative 32.9 H 1.5-4.2 mIU/mL Urine Test Positive Negative Current Medications Medications (Trade) Dose Ordered Sig/Bony Route Start Time Stop Time Status Last Admin Meclizine HCl (Antivert Tablet) 25 mg ONCE ONCE PO 01/12/25 07:30 01/12/25 07:31 DC 01/12/25 07:46 Alprazolam (Xanax Tablet) 0.25 mg ONCE ONCE PO 01/12/25 07:30 01/12/25 07:31 DC 01/12/25 07:46 Ondansetron HCl (Zofran Po) 4 mg ONCE ONCE PO 01/12/25 07:30 01/12/25 07:31 DC 01/12/25 07:46 Ondansetron HCl (Zofran) 4 mg ONCE ONCE IV 01/12/25 08:15 01/12/25 08:16 DC 01/12/25 08:15 Sodium Chloride 1,000 ml @ 1,000 mls/hr Q1H ONCE IV 01/12/25 08:15 01/12/25 09:14 DC 01/12/25 08:15 Time of 1ST Reevaluation: 08:00 Reevaluation 1ST: Unchanged Time of 2ND Reevaluation: 10:28 Reevaluation 2ND: Resolved Patient Education/Counseling: Diagnosis, Treatment, Prognosis, Need For Follow Up Family Education/Counseling: No Family Present Comments pt is feeling much improved. she is but very early. she will need to follow up in 48 hours for repeat hcg. i will prescribe zofran for her Departure 1 Departure Time of Disposition: 10:29 Impression: Primary Impression: Nausea and vomiting in Disposition: 01 HOME / SELF CARE / HOMELESS Condition: Good e-Prescriptions Ondansetron Odt 4MG Tab (ZOFRAN PO) 4 Mg Tb 4 MG PO Q4HP PRN for 5 Days, #25 TAB ODT TAB-DISSOLVE IN MOUTH, THEN SWALLOW Prov: HEENA WHITE MD 01/12/25 Discharged With: Self Critical Care Note Critical Care Time?: No Stability Stability form required: No I personally scribed for HEENA WHITE MD ([email or web address]) on 01/12/25 at 07:49. Electronically submitted by Prabhu Walters ([email or web address]). HEENA WHITE MD Jan 12, 2025 07:49
[2025-01-12 07:52] VITALS: PULSE 82; RESP 16; TEMP 98.8; O2SAT 98
[2025-01-12] MEDS: ONDANSETRON HCL 4 MG/2 ML VIAL ONE (08:08)
[2025-01-12] MEDS: SODIUM CHLORIDE 0.9% 1,000 ML IV ONE (08:15)
[2025-01-12] MEDS: ONDANSETRON HCL 4 MG/2 ML VIAL IV ONE (08:15)
--- NOTE | 2025-01-12 09:43 | DVH ---
Technique: Real-time ultrasound images through the pelvis using a transabdominal transducer. For bett er evaluation of the ovaries and endometrial stripe, an endovaginal transducer was used. Indication: , nausea Comparison: None Findings: The uterus measures 13.1 cm. The endometrial stripe measures 7 mm. No intrauterine identi fied. Cervical nabothian cyst measuring 10 mm.. Right ovary measures 4 x 1.7 x 2.7 cm. Normal flow on color doppler images. No focal masses are ident ified. Left ovary measures 2.5 x 1 x 2.2 cm. Normal flow on color doppler images. No focal masses are ident ified. There is no significant free fluid in the pelvis. Impression: No intrauterine identified. Recommend follow-up ultrasound and beta HCG correlation. Prominent size of the uterus measuring 13 cm in craniocaudal dimension.
[2025-01-12] MEDS ORDERED: ZOFR4T PO (10:30)
[2025-01-12 10:31] VITALS: BP 119/67; PULSE 78; RESP 17; O2SAT 99
== END 2025-01-12 10:51 | disposition home or self-care (01) ==
LOC: ER 07:18
DX: O21.9 Vomiting of pregnancy, unspecified (principal); Z3A.00 Weeks of gestation of pregnancy not specified; F41.9 Anxiety disorder, unspecified; Z88.0 Allergy status to penicillin; Z79.899 Other long term (current) drug therapy
CPT/HCPCS: 36415; 76801; 76817; 81025; 84702; 86900; 86901; 96361; 96374; 99285; J2405; J7030; J8597; Q0162

== ENCOUNTER 2025-01-22 10:52 | Outpatient (CLI) | payer MEDICAID | END 2025-01-22 17:00 | disposition home or self-care (01) | LOC: LAB 10:52 | PROVIDERS: ATTEND Obstetrics & Gynecology | DX: O03.9 Complete or unspecified spontaneous abortion without complication (principal) | CPT/HCPCS: 36415; 84144; 84702 ==

== ENCOUNTER 2025-01-26 09:27 | Emergency (ER) | payer MEDICAID ==
[~2025-01-26] VITALS: Ht 149.9 cm; Wt 94.5 kg
--- NOTE | 2025-01-26 10:06 | ED.PDOC ---
GI ASSESSMENT HPI Comments 25-year-old female presents with a chief complaint of abdominal pain x onset this morning with current . Patient states that her pain is localized to her LLQ, nonradiating, describes as cramping, and rates her pain a 8/10. Patient mentions that the pain is made worse with deep inspiration. Patient is also currently , but does not know how far along she is. Patient reports that she does not see an [employer]ANG GL[employer]ING [employer] till January 29, 2025. Patient denies nausea, vomiting, and diarrhea. Chief Complaint: Abdominal Pain Time Seen by MD: 09:40 Primary Care Provider: ANDIE Reviewed Notes: Medications, Allergies Allergies: Coded Allergies: Penicillins (Verified Allergy, Unknown, 10/26/24) Home Meds Active Scripts Cephalexin (KEFLEX CAPSULE) 250 Mg Cp, 250 MG PO QID for 7 Days, #28 BOTTLE Prov:CARLOS FELTON MD 01/26/25 Ondansetron Odt 4MG Tab (ZOFRAN PO) 4 Mg Tb, 4 MG PO Q4HP PRN for 5 Days, #25 TAB ODT TAB-DISSOLVE IN MOUTH, THEN SWALLOW Prov:HEENA WHITE MD 01/12/25 Nitrofurantoin Monohydrate Mac (Macrobid) 100 Mg Cap, 100 MG PO BID, #10 CAP Prov:RUSSELL PETTIT MD 10/26/24 Acetaminophen (Acetaminophen) 500 Mg Tab, 500 MG PO Q4HP PRN, #30 TAB Prov:KEVIN DALE PAC 04/27/24 Nitrofurantoin Monohydrate Mac (Macrobid) 100 Mg Cap, 100 MG PO BID for 7 Days, #14 CAP Prov:KEVIN DALE PAC 04/27/24 Cephalexin (KEFLEX CAPSULE) 250 Mg Cp, 1 CAP PO QID PRN for 7 Days, #28 CAP 0 Refills Prov:JONO CUTLER DO 03/20/23 Hydrocodone-Acetaminophen (Hydrocodone/Acetaminophen 5-325 mg) 1 Tab Tab, 1 TAB PO BID for 10 Days, #20 TAB 0 Refills Prov:JONO CUTLER DO 03/20/23 Cephalexin (KEFLEX CAPSULE) 250 Mg Cp, 1 CAP PO QID, #28 CAP 0 Refills Prov:JONO CUTLER DO 03/20/23 Hydrocodone-Acetaminophen (Hydrocodone/Acetaminophen 5-325 mg) 1 Tab Tab, 1 TAB PO 6XD PRN for 10 Days, #60 TAB Prov:JONO CUTLER 03/20/23 Cephalexin (KEFLEX CAPSULE) 250 Mg Cp, 500 CAP PO QID PRN for 7 Days, #28 CAP 1 Refill Prov:JONO CUTLER 03/20/23 Cephalexin (KEFLEX CAPSULE) 250 Mg Cp, 1 CAP PO QID, #28 CAP Prov:JONO CUTLER 03/20/23 Hydrocodone-Acetaminophen (Hydrocodone/Acetaminophen 5-325 mg) 1 Tab Tab, 1 TAB PO BID for 10 Days, #20 TAB Prov:JONO CUTLER 03/20/23 Cephalexin (KEFLEX CAPSULE) 250 Mg Cp, 1 CAP PO QID PRN for 7 Days, #28 CAP Prov:JONO CUTLER 03/20/23 Cephalexin (KEFLEX CAPSULE) 250 Mg Cp, 1 CAP PO QID PRN for 15 Days, #28 CAP 0 Refills Prov:JONO CUTLER 03/20/23 Hydrocodone-Acetaminophen (Hydrocodone/Acetaminophen 5-325 mg) 1 Tab Tab, 1 TAB PO 6XD PRN for 10 Days, #60 TAB Prov:JONO CUTLER 03/20/23 Ondansetron Odt 4MG Tab (ZOFRAN PO) 4 Mg Tb, 4 MG PO TIDP PRN for 30 Days, #90 TAB ODT TAB-DISSOLVE IN MOUTH, THEN SWALLOW Prov:MILY STEIN 02/09/23 Sertraline Hcl (Zoloft) 25 Mg Tab, 50 MG PO DAILY for 60 Days, #120 TAB 3 Refills Prov:MILY STEIN 02/09/23 Vit W/ Ferrous Fumara ( One Daily) Daily Tab, 1 TAB PO DAILY, #90 TAB 3 Refills Prov:MILY STEIN 02/09/23 Information Source: Patient Mode of Arrival: Ambulatory Timing: Hours Duration: Since onset Prehospital treatment: None Quality: Cramping Vomitus: None Stool: Normal Severity: Moderate Recent: None Recent Hx of: Current Pain Location: LLQ Associated sign and symptoms: Abdominal Pain Past Medical History PAST MEDICAL HISTORY: Anxiety, Depression 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 Family History Family History: Reviewed,noncontributory to illness, Unknown Social History Smoker: Non-Smoker Alcohol: Occasionally Drugs: Denies Drug Use Lives In: Home Constitutional: denies: chills, diaphoresis, fatigue, fever, malaise, sweats, weakness, others EENTM: denies: blurred vision, double vision, ear bleeding, ear discharge, ear drainage, ear pain, ear ringing, eye pain, eye redness, hearing loss, mouth pain, mouth swelling, nasal discharge, nose bleeding, nose congestion, nose pain, photophobia, tearing, throat pain, throat swelling, voice changes, others Respiratory: denies: cough, hemoptysis, orthopnea, SOB at rest, shortness of breath, SOB with excertion, stridor, wheezing, others Cardiovascular: denies: chest pain, dizzy spells, diaphoresis, Dyspnea on ex ertion, edema, irregular heart beat, left arm pain, lightheadedness, palpitations, PND, syncope, others Gastrointestinal: reports: abdominal pain; denies: abdomen distended, blood streaked bowels, constipated, diarrhea, dysphagia, difficulty swallowing, hematemesis, melena, nausea, poor appetite, poor fluid intake, rectal bleeding, rectal pain, vomiting, others Genitourinary: reports: ; denies: abnormal vagina bleeding, burning, dyspareunia, dysuria, flank pain, frequency, hematuria, incontinence, pain, vagina discharge, urgency, others Neurological: denies: dizziness, fainting, headache, left sided numbness, left sided weakness, numbness, paresthesia, pre-existing deficit, right sided numbness, right sided weakness, seizure, speech problems, tingling, tremors, weakness, others Musculoskeletal: denies: back pain, gout, joint pain, joint swelling, muscle pain, muscle stiffness, neck pain, others Integumetry: denies: bruises, change in color, change in hair/nails, dryness, laceration, lesions, lumps, rash, wounds, others Allergic/Immunocompromised: denies: Difficulty Healing, Frequent Infections, Hives, Itching, others Hematologic/Lymphatic: denies: anemia, blood clots, easy bleeding, easy bruising, swollen glands, others Endocrine: denies: excessive hunger, excessive sweating, excessive thirst, excessive urination, flushing, intolerance to cold, intolerance to heat, unexplained weight gain, unexplained weight loss, others Psychiatric: denies: anxiety, bipolar disorder, depression, hopeless, panic disorder, schizophrenia, sleepless, suicidal, others All Other Systems: Reviewed and Negative Physical Exam General Appearance: Moderate Distress, Normal HEENT: Normal ENT Inspection, Pharynx Normal, TMs Normal Neck: Full Range of Motion, Non-Tender, Normal, Normal Inspection Respiratory: Chest Non-Tender, Lungs Clear, No Accessory Muscle Use, No Respiratory Distress, Normal Breath Sounds Cardiovascular: No Edema, No JVD, No Murmur, No Gallop, Normal Peripheral Pulses, Regular Rate/Rhythm Breast Exam: Deferred Gastrointestinal: No Organomegaly, Non Tender, No Pulsatile Mass, Normal Bowel Sounds, Soft Genitalia: Deferred Pelvic: Deferred Rectal: Deferred Extremities: No calf tenderness, Normal capillary refill, Normal inspection, Normal range of motion, Non-tender, No pedal edema Musculoskeletal : Apperance: Normal 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 Was a procedure done?: No GI differential Dx Differential Diagnosis: Constipation, Diverticular disease, Esophagitis, Gastritis/PUD, Gastroenteritis X-Ray, Labs, Meds, VS Vital Signs Date Time Temp Pulse Resp B/P (MAP) Pulse Ox O2 Delivery O2 Flow Rate FiO2 01/26/25 11:29 98.7 69 18 104/63 (77) 100 98.7 01/26/25 09:40 97.6 97 16 112/60 (77) 96 97.6 Lab Test 01/26/25 10:06 01/26/25 09:43 Range/Units Beta HCG, Quantitative 1218.3 H 1.5-4.2 mIU/mL Urine Color Light-yellow Yellow Urine Clarity Clear Clear Urine pH 5.5 5.0-9.0 Urine Specific [place] 1.022 1.001-1.035 Urine Protein Negative Negative Urine Ketones Negative Negative Urine Blood Trace H Negative /uL Urine Nitrite 2+ H Negative Urine Bilirubin Negative Negative Urine Urobilinogen Normal Negative mg/dL Urine Leukocyte Esterase Trace Negative /uL Urine RBC 2 0 - 4 /hpf Urine Microscopic WBC 6 H 0-5 /HPF Urine Squamous Epithelial Cells Few <5 /hpf Urine Bacteria Few H None Seen /hpf Urine Mucus Few None Seen Urine Glucose Normal Normal mg/dL Patient alert. States that she has been having cramping. Vitals stable. Answering all questions. UA shows UTI. Was given prescription of Keflex antibiotic. Ultrasound reviewed does not show any acute changes. Ultrasound does not reveal any possibly early will need to repeat the scan. Explained to the patient. Was told to follow up with her OBGYN. Was told to come back if there is any problem. Time of 1ST Reevaluation: 10:10 Reevaluation 1ST: Improved Patient Education/Counseling: Diagnosis, Treatment, Need For Follow Up Family Education/Counseling: No Family Present SEPSIS Sepsis Screen Date sepsis recognized/suspect: Jan 26, 2025 Time Sepsis recognized/suspect: 939 Recent Procedure: No On Antibiotic Therapy: No Respiratory Rate >20: No Heart Rate >90: Yes Temp<36 C (96.8 F) or >38.3 C: No SBP <90 or MAP <65 mmHG: No New Acute Mental Status Change: No Is the patient on CPAP, BIPAP,: No Physician Orders Ob Ultrasound Comp Less 14wks (01/26/25 09:50) Ob Trans Vaginal Us (01/26/25 11:24) Vital Signs Date Time Temp Pulse Resp B/P (MAP) Pulse Ox O2 Delivery O2 Flow Rate FiO2 01/26/25 11:29 98.7 69 18 104/63 (77) 100 98.7 01/26/25 09:40 97.6 97 16 112/60 (77) 96 97.6 Departure 1 Departure Time of Disposition: : Impression: Primary Impression: Normal Qualified Codes: Z34.90 - Encounter for supervision of normal , unspecified, unspecified trimester Additional Impression: Urinary tract infection Qualified Codes: N30.00 - Acute cystitis without hematuria Disposition: HOME / SELF CARE / HOMELESS Condition: Good e-Prescriptions Cephalexin (KEFLEX CAPSULE) 250 Mg Cp 250 MG PO QID for 7 Days, #28 BOTTLE Prov: CARLOS FELTON MD 01/26/25 Discharged With: Self Critical Care Note Critical Care Time?: No Stability Stability form required: No Heart Score Heart Score: Heart Score Response (Comments) Value History N/A 0 EKG N/A 0 Age N/A 0 Risk Factors N/A 0 Troponin N/A 0 Total 0 I personally scribed for CARLOS FELTON MD ([email or web address]) on 01/26/25 at 10:06. Electronically submitted by Eloy Astorga ([email or web address]). CARLOS FELTON MD Jan 26, 2025 10:06
[2025-01-26 10:11] LABS: Urine Bacteria FEW /hpf (None Seen); Urine Blood TRACE /uL (Negative); Urine Clarity Clear (Clear); Urine Color Light-Yellow (Yellow); Urine Mucus FEW (None Seen); Urine Protein, UAD Negative (Negative); Urine Specific Gravity 1.022 (1.001-1.035); Urine Squamous Epithelial Cell FEW /hpf (<5); Urine Urobilinogen Normal (Negative); Urine WBC 6 /HPF (0-5); Urine pH 5.5 (5.0-9.0)
[2025-01-26] MEDS ORDERED: CEPH250C PO (10:29)
--- NOTE | 2025-01-26 12:16 | DVH ---
US OB ULTRASOUND COMP LESS 14WKS HISTORY: cramping COMPARISON: US OB ULTRASOUND COMP LESS 14WKS on DOS: 01/12/25 TECHNIQUE: Transabdominal and transvaginal images with color doppler were obtained of the pelvis. FINDINGS: Uterus: - Measures 13.0 x 6.4 x 3.5 cm in length. - Mass lesions: None - Intrauterine : Not seen. - Gestational sac: Not seen. - Yolk sac: Not seen. - Embryonic pole: Not seen. [place] rump length: Not seen. Mean sac diameter: Not seen. Embryonic heart activity: Not seen. Subchorionic hematomas: Not seen.. Right ovary: - Measures 3.2 x 2.1 x 2.0 cm - Vascularity: Normal flow on Doppler images. - Mass lesions: None Left ovary: - Measures 3.3 x 2.1 x 1.2 cm - Vascularity: Normal flow on Doppler images. - Mass lesions: None Adnexal masses: None Free fluid: None Other: Thickened endometrium to 1.2 cm. IMPRESSION: No intra-uterine visualized , consider follow up Beta HCG and pelvic US. Normal appearing bilateral ovaries.
[2025-01-26 13:00] VITALS: BP 115/67; PULSE 73; RESP 15; TEMP 97.9; O2SAT 98
== END 2025-01-26 13:06 | disposition home or self-care (01) ==
LOC: ER 09:27
DX: O23.40 Unspecified infection of urinary tract in pregnancy, unspecified trimester (principal); O20.0 Threatened abortion; N39.0 Urinary tract infection, site not specified; F41.9 Anxiety disorder, unspecified; F32.A Depression, unspecified; Z3A.00 Weeks of gestation of pregnancy not specified; Z79.899 Other long term (current) drug therapy; Z88.0 Allergy status to penicillin
CPT/HCPCS: 36415; 76801; 76817; 81001; 84702

== ENCOUNTER → 2025-01-29 | Outpatient (CLI) | payer MEDICAID | END | disposition home or self-care (01) | LOC: LAB 08:59 | PROVIDERS: ATTEND Obstetrics & Gynecology | DX: Z34.80 Encounter for supervision of other normal pregnancy, unspecified trimester (principal); Z3A.00 Weeks of gestation of pregnancy not specified | CPT/HCPCS: 36415; 84702 ==

== ENCOUNTER 2025-02-02 17:32 | Emergency (ER) | payer MEDICAID ==
[~2025-02-02] VITALS: Ht 149.9 cm; Wt 93.0 kg
[2025-02-02 18:06] LABS: Urine Protein, UAD Negative (Negative)
--- NOTE | 2025-02-02 18:16 | ED.PDOC ---
ADMINISTRATIVE JUDGE HPI Comments This is a 25 year old female presenting to the ED with chief complaint of vaginal bleeding during . Patient reports that she has been experiencing vaginal bleeding with associated lower abdominal pain since this morning. Patient relays that she is currently , however, at her last OBGYN appointment with Dr. Quiroz on 01/29, no IUP was found. Patient notes her next appointment is on 02/05. Patient is . Patient denies any dysuria, vaginal di scharge, fever, or chills. Chief Complaint: Time Seen by MD: 18:04 Reviewed Notes: Nurses Notes, Medications, Allergies Allergies: Coded Allergies: Penicillins (Verified Allergy, Unknown, 10/26/24) Home Meds Active Scripts Cephalexin (KEFLEX CAPSULE) 250 Mg Cp, 250 MG PO QID for 7 Days, #28 BOTTLE Prov:CARLOS FELTON MD 01/26/25 Ondansetron Odt 4MG Tab (ZOFRAN PO) 4 Mg Tb, 4 MG PO Q4HP PRN for 5 Days, #25 TAB ODT TAB-DISSOLVE IN MOUTH, THEN SWALLOW Prov:HEENA WHITE MD 01/12/25 Nitrofurantoin Monohydrate Mac (Macrobid) 100 Mg Cap, 100 MG PO BID, #10 CAP Prov:RUSSELL PETTIT MD 10/26/24 Acetaminophen (Acetaminophen) 500 Mg Tab, 500 MG PO Q4HP PRN, #30 TAB Prov:KEVIN DALE PAC 04/27/24 Nitrofurantoin Monohydrate Mac (Macrobid) 100 Mg Cap, 100 MG PO BID for 7 Days, #14 CAP Prov:KEVIN DALE PAC 04/27/24 Cephalexin (KEFLEX CAPSULE) 250 Mg Cp, 1 CAP PO QID PRN for 7 Days, #28 CAP 0 Refills Prov:JONO CUTLER DO 03/20/23 Hydrocodone-Acetaminophen (Hydrocodone/Acetaminophen 5-325 mg) 1 Tab Tab, 1 TAB PO BID for 10 Days, #20 TAB 0 Refills Prov:JONO CUTLER DO 03/20/23 Cephalexin (KEFLEX CAPSULE) 250 Mg Cp, 1 CAP PO QID, #28 CAP 0 Refills Prov:JONO CUTLER DO 03/20/23 Hydrocodone-Acetaminophen (Hydrocodone/Acetaminophen 5-325 mg) 1 Tab Tab, 1 TAB PO 6XD PRN for 10 Days, #60 TAB Prov:JONO CUTLER 03/20/23 Cephalexin (KEFLEX CAPSULE) 250 Mg Cp, 500 CAP PO QID PRN for 7 Days, #28 CAP 1 Refill Prov:JONO CUTLER 03/20/23 Cephalexin (KEFLEX CAPSULE) 250 Mg Cp, 1 CAP PO QID, #28 CAP Prov:JONO CUTLER 03/20/23 Hydrocodone-Acetaminophen (Hydrocodone/Acetaminophen 5-325 mg) 1 Tab Tab, 1 TAB PO BID for 10 Days, #20 TAB Prov:JONO CUTLER 03/20/23 Cephalexin (KEFLEX CAPSULE) 250 Mg Cp, 1 CAP PO QID PRN for 7 Days, #28 CAP Prov:JONO CUTLER 03/20/23 Cephalexin (KEFLEX CAPSULE) 250 Mg Cp, 1 CAP PO QID PRN for 15 Days, #28 CAP 0 Refills Prov:JONO CUTLER 03/20/23 Hydrocodone-Acetaminophen (Hydrocodone/Acetaminophen 5-325 mg) 1 Tab Tab, 1 TAB PO 6XD PRN for 10 Days, #60 TAB Prov:JONO CUTLER 03/20/23 Ondansetron Odt 4MG Tab (ZOFRAN PO) 4 Mg Tb, 4 MG PO TIDP PRN for 30 Days, #90 TAB ODT TAB-DISSOLVE IN MOUTH, THEN SWALLOW Prov:MILY STEIN 02/09/23 Sertraline Hcl (Zoloft) 25 Mg Tab, 50 MG PO DAILY for 60 Days, #120 TAB 3 Ref ills Prov:MILY STEIN 02/09/23 Vit W/ Ferrous Fumara ( One Daily) Daily Tab, 1 TAB PO DAILY, #90 TAB 3 Refills Prov:MILY STEIN 02/09/23 Information Source: Patient Mode of Arrival: Ambulatory Timing: Days Prehospital treatment: None Severity: Moderate Vaginal Discharge: None Vaginal Lesions: None Bleeding Quality: Bright Red Vaginal Mass: None Onset Of Mass/Bleeding: Spontaneous Sexual Activity: Last Consensual Nitta [place]: Unknown Control: None History of: Current Associated Signs and Symptoms: Vaginal Bleeding, Abdominal Pain Past Medical History PAST MEDICAL HISTORY: Anxiety, Depression Surgical History: [employer]NEY History: Spontaneous 5 Para 4 Family History Family History: Reviewed,noncontributory to illness, Unknown Social History Smoker: Non-Smoker Alcohol: Occasionally Drugs: Denies Drug Use Lives In: Home Constitutional: denies: chills, diaphoresis, fatigue, fever, malaise, sweats, weakness, others EENTM: denies: blurred vision, double vision, ear bleeding, ear discharge, ear drainage, ear pain, ear ringing, eye pain, eye redness, hearing loss, mouth pain, mouth swelling, nasal discharge, nose bleeding, nose congestion, nose pain, photophobia, tearing, throat pain, throat swelling, voice changes, others Respiratory: denies: cough, hemoptysis, orthopnea, SOB at rest, shortness of breath, SOB with excertion, stridor, wheezing, others Cardiovascular: denies: chest pain, dizzy spells, diaphoresis, Dyspnea on exertion, edema, irregular heart beat, left arm pain, lightheadedness, palpitati ons, PND, syncope, others Gastrointestinal: reports: abdominal pain; denies: abdomen distended, blood streaked bowels, constipated, diarrhea, dysphagia, difficulty swallowing, hematemesis, melena, nausea, poor appetite, poor fluid intake, rectal bleeding, rectal pain, vomiting, others Genitourinary: reports: abnormal vagina bleeding, ; denies: burning, dyspareunia, dysuria, flank pain, frequency, hematuria, incontinence, pain, vagina discharge, urgency, others Neurological: denies: dizziness, fainting, headache, left sided numbness, left sided weakness, numbness, paresthesia, pre-existing deficit, right sided numbness, right sided weakness, seizure, speech problems, tingling, tremors, weakness, others Musculoskeletal: denies: back pain, gout, joint pain, joint swelling, muscle pain, muscle stiffness, neck pain, others Integumetry: denies: bruises, change in color, change in hair/nails, dryness, laceration, lesions, lumps, rash, wounds, others Allergic/Immunocompromised: denies: Difficulty Healing, Frequent Infections, Hives, Itching, others Hematologic/Lymphatic: denies: anemia, blood clots, easy bleeding, easy bruising, swollen glands, others Endocrine: denies: excessive hunger, excessive sweating, excessive thirst, excessive urination, flushing, intolerance to cold, intolerance to heat, unexplained weight gain, unexplained weight loss, others Psychiatric: denies: anxiety, bipolar disorder, depression, hopeless, panic disorder, schizophrenia, sleepless, suicidal, others All Other Systems: Reviewed and Negative Physical Exam General Appearance: No Apparent Distress, Normal HEENT: Normal ENT Inspection, Pharynx Normal, TMs Normal Neck: Full Range of Motion, Non-Tender, Normal, Normal Inspection Respiratory: Chest Non-Tender, Lungs Clear, No Accessory Muscle Use, No Respiratory Distress, Normal Breath Sounds Cardiovascular: No Edema, No JVD, No Murmur, No Gallop, Normal Peripheral Pulses, Regular Rate/Rhythm Breast Exam: Deferred Gastrointestinal: No Organomegaly, Non Tender, No Pulsatile Mass, Normal Bowel Sounds, Soft Genitalia: Deferred Pelvic: Deferred Rectal: Deferred Extremities: No calf tenderness, Normal capillary refill, Normal inspection, Normal range of motion, Non-tender, No pedal edema Musculoskeletal : Apperance: Normal Neurologic: Alert, animal surgeon II-XII nml as Tested, No Motor Deficits, Normal Affect, Normal Mood, No Sensory Deficits Cerebellar Function: Normal Reflexes: Normal Skin: Dry, Normal Color, Warm Lymphatic: No Adenopathy Was a procedure done? Was a procedure done?: No Differential Diagnosis ([employer]) Vaginal Bleeding: - Complete, - Incomplete, - Inevitable, - Missed, - Threatened, Abruptio Placentae, Blood Loss Anemia, Ectopic , Menorrhagia X-Ray, Labs, Meds, VS Vital Signs Date Time Temp Pulse Resp B/P (MAP) Pulse Ox O2 Delivery O2 Flow Rate FiO2 02/02/25 21:16 98.3 77 20 126/75 (92) 99 98.3 02/02/25 17:37 98.1 88 14 122/78 (93) 98 98.1 Lab Test 02/02/25 18:22 02/02/25 17:50 Range/Units Beta HCG, Quantitative 2884.0 H 1.5-4.2 mIU/mL Urine Color Light-yellow Yellow Urine Clarity Turbid H Clear Urine pH 5.5 5.0-9.0 Urine Specific [place] 1.029 1.001-1.035 Urine Protein Negative Negative Urine Ketones Negative Negative Urine Blood 3+ H Negative /uL Urine Nitrite Negative Negative Urine Bilirubin Negative Negative Urine Urobilinogen Normal Negative mg/dL Urine Leukocyte Esterase Trace Negative /uL Urine RBC 9 0 - 4 /hpf Urine Microscopic WBC 14 H 0-5 /HPF Urine Squamous Epithelial Cells Mod <5 /hpf Urine Bacteria Few H None Seen /hpf Urine Mucus Few None Seen Urine Glucose Normal Normal mg/dL Time of 1ST Reevaluation: 18:51 Reevaluation 1ST: Unchanged Time of 2ND Reevaluation: 21:57 Reevaluation 2ND: Improved Patient Education/Counseling: Diagnosis, Treatment, Prognosis, Need For Follow Up Family Education/Counseling: No Family Present Comments this is the 3rd, visit and 2nd US still without an IUP. however the ghcg has doubled. i will consult ob for evaluation of ectopic . i consulted Dr Quiroz, who knows pt and feels that since there are no adnexal mass, she would like to have pt return to ER for another repeat HCG and US and she will decide from there. pt appears very comfortable and is in no pain nor having active bleeding. she understands it and is agreeable to return on Tuesday Departure 1 Departure Time of Disposition: 21:27 Impression: Primary Impression: Threatened Additional Impressions: Pelvic cramping Vaginal spotting Disposition: HOME / SELF CARE / HOMELESS Condition: Good Additional Instructions: return on tuesday for recheck per Dr Quiroz Discharged With: Self Critical Care Note Critical Care Time?: Yes (55 min-critical care time only) Critical care comment: Due to concerns for patients condition deteriorating, the care required my highest level of attention and readiness to intervene. I assessed the patient, reviewed the medical records, ordered the appropriate tests and treatments, then reassessed for results and responsiveness. I communicated with medical personnel and consultants and formulated a plan of care. Total critical care time excludes any procedures Stability Stability form required: No Heart Score Heart Score: Heart Score Response (Comments) Value History N/A 0 EKG N/A 0 Age N/A 0 Risk Factors N/A 0 Troponin N/A 0 Total 0 I personally scribed for HEENA WHITE MD ([email or web address]) on 02/02/25 at 18:16. Electronically submitted by Feliciano Gao ([email or web address]). HEENA WHITE MD Feb 02, 2025 18:16
--- NOTE | 2025-02-02 20:52 | DVH ---
OBSTETRIC ULTRASOUND PRIOR TO 14 WEEKS CLINICAL INDICATION: vaginal bleeding TECHNIQUE: Multiple grayscale ultrasound images were obtained of the pelvis via transabdominal and tr ansvaginal approach for obstetric evaluation. Limited color Doppler and spectral Doppler acquisitions were also obtained. COMPARISON: US OB ULTRASOUND COMP LESS 14WKS on DOS: 01/26/25, US OB ULTRASOUND COMP LESS 14WKS on DOS : 01/12/25 FINDINGS: Uterus: 12.3 x 4.6 x 5.4 cm. Endometrium is 1 cm. No intrauterine gestational sac is seen. Right adnexa: right ovary 2.7 x 2.0 x 2.7 cm. Normal arterial blood flow in the ovary. No right adne xal mass seen. Right corpus luteum measures 1.8 cm. Left adnexa: left ovary 2.8 x 1.6 x 1.9 cm. Normal arterial blood flow in the ovary. No left adnexal mass seen. Other: None IMPRESSION: No intrauterine or ectopic is seen at this time. Follow-up by trending beta HCGs and follow -up pelvic ultrasound in 7-14 days. Right corpus luteum.
[2025-02-02 21:16] VITALS: BP 126/75; PULSE 77; RESP 20; TEMP 98.3; O2SAT 99
== END 2025-02-02 22:05 | disposition home or self-care (01) ==
LOC: EDBD 17:32 → EDUNIT# 17:32 → ER 17:34
DX: O20.0 Threatened abortion (principal); R10.2 Pelvic and perineal pain; F41.9 Anxiety disorder, unspecified; F32.A Depression, unspecified; Z3A.00 Weeks of gestation of pregnancy not specified; Z79.899 Other long term (current) drug therapy; Z88.0 Allergy status to penicillin
CPT/HCPCS: 36415; 76801; 76817; 81001; 84702

== ENCOUNTER 2025-02-04 17:36 | Emergency (ER) | payer MEDICAID ==
[~2025-02-04] VITALS: Ht 149.9 cm; Wt 96.3 kg
[2025-02-04 17:40] VITALS: BP 125/77; PULSE 103; RESP 18; TEMP 98.2; O2SAT 97
[2025-02-04 18:18] LABS: Hematocrit 34.9 % (36.0-46.0); Hemoglobin 11.8 g/dL (12.2-16.2); Mean Corpuscular Hemoglobin 30.0 pg (28.0-32.0); Mean Corpuscular Volume 88.7 fL (80.0-100.0); Nucleated Red Blood Cells % 0.1 %
--- NOTE | 2025-02-04 18:23 | ED.PDOC ---
LINESPERSON HPI Comments HPI: 25 y/o F, with PMHx of anxiety, depression, and panic attack presents to the ED for CC of abdominal pain. Patient states, that she has been experiencing suprapubic abdominal pain with associated vaginal bleeding onset, today (02/04/25). Patient describes, bleeding quality to be bright red with golf ball sized clots. Patient reports, being seen at [facility] month prior, and having a positive test. Patient relays, being seen by on 01/29/25. Patient denies trauma, injury, or fall. no other symptoms or modifying factors present at this time. The blood clot did not have human anatomy. Patient failed to mentioned she was seen by guest attendant and she was told everything looks fine. However recent records show that the most recent pelvic ultrasound did not show any IUP. Beta HCG on 02/02/25 read 2884.0 Initial Vitals BP:125/77 HR:103 RR:18 O2:97% Temp:98.2 Past Medical History: DEPRESSION, ANXIETY, PANIC ATTACKS Past Surgical History: BACK, Social History: Denies ETOH, smoking, and drug use. Medications: DENIES ANY Allergies: PENICILLINS HPI: Poor Historian. Past Medical History: Past Surgical History: REVIEW OF SYSTEMS: CONSTITUTIONAL: Denies acute: fever, diaphoresis, chills, generalized weakness. HEAD: Denies acute: headache, photophobia Eyes: Denies acute: Double vision, vision loss, eye pain, eye discharge. EARS: Denies acute: tinnitus, hearing loss, ear discharge, ear pain, THROAT: Denies acute: sore throat, swelling, difficulty swallowing , pain with swallowing, change in voice. NECK: Denies acute: neck pain, neck swelling, stiff neck. HEART: Denies acute : chest pain, palpitations, LUNGS: Denies acute: SOB, wheezing, cough, hemoptysis ABDOMEN: Denies acute: Nausea, Vomiting, diarrhea, melena , hematemesis, hematochezia SKIN: Denies acute: rash, redness, lesions, itchiness. EXTREMITIES: Denies acute: calf pain, numbness, tingling, weakness, denies pain in extremity. Denies acute: Low back pain. Neuro: Denies acute: focal neurological deficit, motor or sensory focal neurological deficit, tremors, seizure like activity, confusion, dizziness, change in mental status, loss of bowel or bladder function, cauda equina like symptoms. : Denies acute: dysuria, hematuria, flank pain, increase in urinary frequency. PSYCH: Denies acute: hallucination, suicidal ideation, homicidal ideation. FEMALE: Denies acute: foul odor, unusual discharge. PHYSICAL EXAM: General: ----[id number]-[id number]----acute distress, awake and alert. Head: normocephalic, atraumatic. Neck: supple, trachea is midline, no swelling. Throat: Normal phonation. Eyes:, no erythema, no purulent discharge, no proptosis, no icterus. Heart: regular rate, regular rhythm, no significant murmur appreciated. Lungs: no apparent respiratory distress, Able to speak in full sentences. No wheezing, no rhonchi, no crackles. No stridors Clear to auscultation bilaterally. Abdomen: Suprapubic tender to palpation, non distended, soft, no guarding, no rebound, + bowel sounds. Neuro: Awake, Alert, oriented to name, self, situation, follows commands GCS=15. Speech is normal. Skin: no petechia, no purpura, no cyanosis, non-pale, not jaundice. Lower extremities: --no - Pitting edema no deformity, no focal swelling, no calf TTP. Makes eye contact. moves all four extremities. Face: no apparent facial droop. ED COURSE: DISCLAIMER: This medical document was created using an electronic medical record system with voice recognition software and computerized dictation system. Although this document has been carefully reviewed, there might still be some phonetic and typographical errors. Occasional wrong-word or "sound-alike" substitutions may have occurred due to the inherent limitations of voice recognition software. These areas are purely typographical due to imperfections of the software programs and do not reflect any compromise in the patient's medical care. Please read the chart carefully and recognize, using context, where these substitutions have occurred. Chief Complaint: Abdominal Pain Time Seen by MD: 18:05 Reviewed Notes: Nurses Notes, Medications, Allergies Allergies: Coded Allergies: Penicillins (Verified Allergy, Unknown, 3/28/25) Home Meds Active Scripts Cephalexin Monohydrate (Cephalexin) 500 Mg Tab, 1 TAB PO TID for 5 Days, #15 TAB Prov:JOAN KRUEGER DO 02/04/25 Cephalexin (KEFLEX CAPSULE) 250 Mg Cp, 250 MG PO QID for 7 Days, #28 BOTTLE Prov:CARLOS FELTON MD 01/26/25 Ondansetron Odt 4MG Tab (ZOFRAN PO) 4 Mg Tb, 4 MG PO Q4HP PRN for 5 Days, #25 TAB ODT TAB-DISSOLVE IN MOUTH, THEN SWALLOW Prov:HEENA WHITE MD 01/12/25 Nitrofurantoin Monohydrate Mac (Macrobid) 100 Mg Cap, 100 MG PO BID, #10 CAP Prov:RUSSELL PETTIT MD 10/26/24 Acetaminophen (Acetaminophen) 500 Mg Tab, 500 MG PO Q4HP PRN, #30 TAB Prov:KEVIN DALE PAC 04/27/24 Nitrofurantoin Monohydrate Mac (Macrobid) 100 Mg Cap, 100 MG PO BID for 7 Days, #14 CAP Prov:KEVIN DALE PAC 04/27/24 Cephalexin (KEFLEX CAPSULE) 250 Mg Cp, 1 CAP PO QID PRN for 7 Days, #28 CAP 0 Refills Prov:JONO GRANADOS DO 03/20/23 Hydrocodone-Acetaminophen (Hydrocodone/Acetaminophen 5-325 mg) 1 Tab Tab, 1 TAB PO BID for 10 Days, #20 TAB 0 Refills Prov:JONO GRANADOS DO 03/20/23 Cephalexin (KEFLEX CAPSULE) 250 Mg Cp, 1 CAP PO QID, #28 CAP 0 Refills Prov:JONO GRANADOS DO 03/20/23 Hydrocodone-Acetaminophen (Hydrocodone/Acetaminophen 5-325 mg) 1 Tab Tab, 1 TAB PO 6XD PRN for 10 Days, #60 TAB Prov:JONO GRANADOS DO 03/20/23 Cephalexin (KEFLEX CAPSULE) 250 Mg Cp, 500 CAP PO QID PRN for 7 Days, #28 CAP 1 Refill Prov:JONO GRANADOS DO 03/20/23 Cephalexin (KEFLEX CAPSULE) 250 Mg Cp, 1 CAP PO QID, #28 CAP Prov:JONO GRANADOS 03/20/23 Hydrocodone-Acetaminophen (Hydrocodone/Acetaminophen 5-325 mg) 1 Tab Tab, 1 TAB PO BID for 10 Days, #20 TAB Prov:JONO GRANADOS 03/20/23 Cephalexin (KEFLEX CAPSULE) 250 Mg Cp, 1 CAP PO QID PRN for 7 Days, #28 CAP Prov:JONO GRANADOS DO 03/20/23 Cephalexin (KEFLEX CAPSULE) 250 Mg Cp, 1 CAP PO QID PRN for 15 Days, #28 CAP 0 Refills Prov:JONO GRANADOS 03/20/23 Hydrocodone-Acetaminophen (Hydrocodone/Acetaminophen 5-325 mg) 1 Tab Tab, 1 TAB PO 6XD PRN for 10 Days, #60 TAB Prov:JONO GRANADOS 03/20/23 Ondansetron Odt 4MG Tab (ZOFRAN PO) 4 Mg Tb, 4 MG PO TIDP PRN for 30 Days, #90 TAB ODT TAB-DISSOLVE IN MOUTH, THEN SWALLOW Prov:MILY STEIN [facility] 02/09/23 Sertraline Hcl (Zoloft) 25 Mg Tab, 50 MG PO DAILY for 60 Days, #120 TAB 3 Refills Prov:MILY STEIN [facility] 02/09/23 Vit W/ Ferrous Fumara ( One Daily) Daily Tab, 1 TAB PO DAILY, #90 TAB 3 Refills Prov:MILY STEIN [facility] 02/09/23 Information Source: Patient, Emergency Med Personnel Mode of Arrival: Ambulatory Timing: Hours Prehospital treatment: None Severity: Moderate Vaginal Discharge: None Vaginal Lesions: None Bleeding Quality: Bright Red, Clotted Vaginal Mass: None Onset Of Mass/Bleeding: Spontaneous Sexual Activity: Last Consensual [place]: Unknown Control: None History of: Current Blood Type: Unknown Associated Signs and Symptoms: Vaginal Bleeding, Abdominal Pain Was a procedure done? 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) Vaginal Bleeding: - Inevitable, - Threatened, Other (Differential diagnosis includes but not limited to DU B, menorrhea, metromenorrhagia, neoplasm, coagulopathy,, trauma, miscarriage, placenta previa, placental abruption, ) Mass / Lesion: Other Vaginal Discharge: N/A X-Ray, Labs, Meds, VS Vital Signs Date Time Temp Pulse Resp B/P (MAP) Pulse Ox O2 Delivery O2 Flow Rate FiO2 02/04/25 17:40 98.2 103 18 125/77 (93) 97 98.2 Lab Test 02/04/25 18:21 02/04/25 17:53 Range/Units Urine Color Colorless Yellow Urine Clarity Ex.turbid Clear Urine pH 6.0 5.0-9.0 Urine Specific [place] 1.022 1.001-1.035 Urine Protein 1+ H Negative Urine Ketones Negative Negative Urine Blood 3+ H Negative /uL Urine Nitrite 2+ H Negative Urine Bilirubin Negative Negative Urine Urobilinogen Normal Negative mg/dL Urine Leukocyte Esterase Negative Negative /uL Urine RBC 7860 0 - 4 /hpf Urine Microscopic WBC 88 H 0-5 /HPF Urine Squamous Epithelial Cells Few <5 /hpf Urine Bacteria None seen None Seen /hpf Urine Glucose Normal Normal mg/dL White Blood Count 11.2 H 4.4-10.8 10^3/uL Red Blood Count 3.93 L 4.0-5.20 10^6/uL Hemoglobin 11.8 L 12.2-16.2 g/dL Hematocrit 34.9 L 36.0-46.0 % Mean Corpuscular Volume 88.7 80.0-100.0 fL Mean Corpuscular Hemoglobin 30.0 28.0-32.0 pg Mean Corpuscular Hemoglobin Concent 33.8 32.0-36.0 g/dL Red Cell Distribution Width 14.2 11.8-14.3 % Platelet Count 375 140-450 10^3/uL Mean Platelet Volume 7.7 6.9-10.8 fL Neutrophils (%) (Auto) 66.6 37.0-80.0 % Lymphocytes (%) (Auto) 23.8 10.0-50.0 % Monocytes (%) (Auto) 6.4 0.0-12.0 % Eosinophils (%) (Auto) 2.5 0.0-7.0 % Basophils (%) (Auto) 0.7 0.0-2.0 % Neutrophils # (Auto) 7.5 1.6-8.6 10 ^3/uL Lymphocytes # (Auto) 2.7 0.4-5.4 10 ^3/uL Monocytes # (Auto) 0.7 0-1.3 10 ^3/uL Eosinophils # (Auto) 0.3 0-0.8 10 ^3/uL Basophils # (Auto) 0.1 0-0.2 10 ^3/uL Nucleated Red Blood Cells 0.1 % Sodium Level 141 136-145 mmol/L Potassium Level 4.4 3.5-5.1 mmol/L Chloride Level 108 H 98-107 mmol/L Carbon Dioxide Level 24 20-31 mmol/L Anion Gap 9 5-15 Blood Urea Nitrogen 19 9-23 mg/dL Creatinine 0.63 0.550-1.02 mg/dL Glomerular Filtration Rate Calc 126 >90 mL/min BUN/Creatinine Ratio 30.2 H 10.0-20.0 Serum Glucose 88 74-106 mg/dL Calcium Level 9.1 8.7-10.4 mg/dL Total Bilirubin 0.2 0.2-1.0 mg/dL Aspartate Amino Transferase (AST) 16 13-40 U/L Alanine Aminotransferase (ALT) 12 7-40 U/L Alkaline Phosphatase 80 46-116 U/L Total Protein 6.1 5.7-8.2 g/dL Albumin 4.1 3.2-4.8 g/dL Beta HCG, Quantitative 2202.2 H 1.5-4.2 mIU/mL [place] [address] Ph: [phone] DIAGNOSTIC IMAGING Diagnostic Imaging Report : [id number] Signed PATIENT: TERRIE BROWNACCT: [id number] UNIT: [id number] : 2000 LOC: ER ROOM / BED: / AGE / SEX: 25 / F ADM STATUS: REG ER SERVICE 0000 ORDERING PHYSICIAN: HEENA WHITE MD PROCEDURE(s): OBTVG - OB TRANS VAGINAL US REASON: VAGINAL BLEEDING ORDER NUMBER(s): [id number], ACCESSION NUMBER(s): [id number] OBSTETRIC ULTRASOUND PRIOR TO 14 WEEKS CLINICAL INDICATION: vaginal bleeding TECHNIQUE: Multiple grayscale ultrasound images were obtained of the pelvis via transabdominal and transvaginal approach for obstetric evaluation. Limited color Doppler and spectral Doppler acquisitions were also obtained. COMPARISON: US OB ULTRASOUND COMP LESS 14WKS on DOS: 01/26/25, US OB ULTRASOUND COMP LESS 14WKS on DOS: 01/12/25 FINDINGS: Uterus: 12.3 x 4.6 x 5.4 cm. Endometrium is 1 cm. No intrauterine gestational sac is seen. Right adnexa: right ovary 2.7 x 2.0 x 2.7 cm. Normal arterial blood flow in the ovary. No right adnexal mass seen. Right corpus luteum measures 1.8 cm. Left adnexa: left ovary 2.8 x 1.6 x 1.9 cm. Normal arterial blood flow in the ovary. No left adnexal mass seen. Other: None IMPRESSION: No intrauterine or ectopic is seen at this time. Follow-up by trending beta HCGs and follow-up pelvic ultrasound in 7-14 days. Right corpus luteum. ATED BY: SHERWIN VIZCARRA MD DICTATED DATE/TIME: 02/02/252048 SIGNED BY: SHERWIN VIZCARRA MD SIGNED DATE/TIME: 02/02/252048 CC: [place] [address] Ph: [phone] DIAGNOSTIC IMAGING Diagnostic Imaging Report : [id number] Signed PATIENT: YESENIA BROWNT: [id number] UNIT: [id number] : 2000 LOC: ER ROOM / BED: / AGE / SEX: 25 / F ADM STATUS: REG ER SERVICE [id number] ORDERING PHYSICIAN: JOAN KRUEGER DO PROCEDURE(s): OB4US - OB ULTRASOUND COMP LESS 14WKS REASON: vag bleed, plevic pain ORDER NUMBER(s): [id number], ACCESSION NUMBER(s): [id number] OB ULTRASOUND <14 WEEKS: HISTORY: vag bleed, plevic pain TECHNIQUE: Multiple real-time grayscale sonographic images of the pelvis with duplex doppler color flow, spectral and M-mode analysis. TRANSDUCERS: Transabdominal and transvaginally FINDINGS: The uterus measures 12.7 X 5.5 X 4 cm. The endometrium measures 12.5mm in thickness. Right ovary measures 2.3 X 1.5 X 2.5 cm with normal Doppler color flow Left ovary measures 2.4 X 1.5 X 2.4 cm with normal Doppler color flow IMPRESSION: No intrauterine identified. Given HCG is positive, this is compatible with of unknown location. Recommend ongoing follow-up B- HCG levels and repeat imaging as indicated. ATED BY: TOM TORRES MD DICTATED DATE/TIME: 02/04/252039 SIGNED BY: TOM TORRES MD SIGNED DATE/TIME: 02/04/252039 CC: Time of 1ST Reevaluation: 18:35 Reevaluation 1ST: Unchanged Time of 2ND Reevaluation: 22:21 (Patient beta-hCG levels has been trending up since October 26, 2024. Most recent beta-hCG levels was on the 02 February 2025 and it was 2884. Today is 2202 in the onset of new vaginal bleeding. This is likely miscarriage.) Reevaluation 2ND: Unchanged Time of 3RD Reevaluation: 22:30 (The case was discussed with the OB Gyne on- call team (HPI, physical exam, labs and diagnostic tests that were available at the time of disposition, ED course, treatment plan) on the phone. They agreed with our management and recommend outpatient follow up for repeat beta-hCG levels and follow up with OB Gyne doctors an outpatient and repeat imaging studies as an outpatient. Dr. Granados) Patient Education/Counseling: Diagnosis, Treatment Family Education/Counseling: No Family Present Comments Patient presented with the above HPI.--pelvic pain and vaginal bleeding in ----workup was initiated. patient was found with the above mentioned diagnosis. the following medications were ordered: please refer to order lists of meds and tests obtained by myself Dr. Krueger. Patient ED course and VS have been stabilized. Patient has been reassessed in the ED and remained in a stable condition. Pertinent incidental findings were discussed with the patient and/or family. Patient has been observed in the ED adequate length of time to insure improvement/stability. Escalation of care considered: Consideration of escalation to observation or admission Patient left against medical advice. I ordered pain medication for her but she refused it and walked away. All the reports of any imaging studies that were ordered by myself were reviewed by myself. Departure 1 Departure Time of Disposition: 22:26 Impression: Primary Impression: Vaginal bleeding during Additional Impressions: Miscarriage Threatened Left against medical advice UTI (urinary tract infection) Disposition: LEFT AGAINST MEDICAL ADVICE Condition: Stable Additional Instructions: Patient left against medical advice. I gave her the following instructions verbally at bedside. Additional instructions: You MUST follow-up with your primary care/family doctor in 1 to 2 days. If you are unable to see your primary care/family doctor, please return to our emergency room for re-assessment and re-evaluation in 1 to 2 days. Return to the emergency room here in our facility or to the nearest ER [facility] if your symptoms change or worsen. CONSULTATIONS: you MUST Follow-up for consultation as soon as possible with: Gyne doctor in 1-2 days. You MUST call the consultants office yourself to make an appointment. You may need to arrange that through your insurance and/or your primary/family doctor. If you are unable to see the [facility] consultant in 1 to 2 days, you must return to our emergency room (or any other ER of your choice) for re-assessment and re- evaluation. Adequate fluid hydration. Absolute pelvic rest. Repeat beta-hCG levels in 48-72 hours. Repeat pelvic ultrasound in 4-5 days. Below is a copy of your radiological report for follow up: [place] [address] Ph: [phone] DIAGNOSTIC IMAGING Diagnostic Imaging Report : [id number] Signed PATIENT: TERRIE BROWN ACCT: [id number] UNIT: [id number] : 2000 LOC: ER ROOM / BED: / AGE / SEX: 25 / F ADM STATUS: REG ER SERVICE [id number] ORDERING PHYSICIAN: JOAN KRUEGER DO PROCEDURE(s): OB4US - OB ULTRASOUND COMP LESS 14WKS REASON: vag bleed, plevic pain ORDER NUMBER(s): [id number], ACCESSION NUMBER(s): [id number] OB ULTRASOUND <14 WEEKS: HISTORY: vag bleed, plevic pain TECHNIQUE: Multiple real-time grayscale sonographic images of the pelvis with duplex doppler color flow, spectral and M-mode analysis. TRANSDUCERS: Transabdominal and transvaginally FINDINGS: The uterus measures 12.7 X 5.5 X 4 cm. The endometrium measures 12.5mm in thickness. Right ovary measures 2.3 X 1.5 X 2.5 cm with normal Doppler color flow Left ovary measures 2.4 X 1.5 X 2.4 cm with normal Doppler color flow IMPRESSION: No intrauterine identified. Given HCG is positive, this is compatible with of unknown location. Recommend ongoing follow-up B- HCG levels and repeat imaging as indicated. ATED BY: TOM TORRES MD DICTATED DATE/TIME: 02/04/252039 SIGNED BY: TOM TORRES MD SIGNED DATE/TIME: 02/04/252039 CC: e-Prescriptions Cephalexin Monohydrate (Cephalexin) 500 Mg Tab 1 TAB PO TID for 5 Days, #15 TAB Prov: JOAN KRUEGER DO 02/04/25 Discharged With: Self Critical Care Note Critical Care Time?: Yes (35 min-critical care time only) I personally scribed for JOAN KRUEGER DO ([email or web address]) on 02/04/25 at 18:23. Electronically submitted by Philly Diaz ([email or web address]). I personally scribed for JOAN KRUEGER DO ([email or web address]) on 02/04/25 at 18:27. Electronically submitted by Philly Diaz ([email or web address]). I personally scribed for JOAN KRUEGER DO ([email or web address]) on 02/04/25 at 19:38. Electronically submitted by Rosey Martin ([email or web address]). I personally scribed for JOAN KRUEGER J DO ([email or web address]) on 02/04/25 at 21:45. Electronically submitted by Rosey Martin ([email or web address]). I personally scribed for JOAN KRUEGER J DO ([email or web address]) on 02/04/25 at 22:07. Electronically submitted by Rosey Martin ([email or web address]). JOAN KRUEGER DO Feb 04, 2025 18:23
[2025-02-04 18:32] LABS: Urine Protein, UAD 1+ (Negative)
[2025-02-04 18:36] LABS: Alanine Aminotransferase 12 U/L (7-40); Albumin 4.1 g/dL (3.2-4.8); Alkaline Phosphatase 80 U/L (46-116); Anion Gap 9 (5-15); BUN/Creatinine Ratio 30.2 (10.0-20.0); Blood Urea Nitrogen 19 mg/dL (9-23); Calcium 9.1 mg/dL (8.7-10.4); Carbon Dioxide 24 mmol/L (20-31); Glucose 88 mg/dL (74-106); Potassium 4.4 mmol/L (3.5-5.1); Sodium 141 mmol/L (136-145); Total Protein 6.1 g/dL (5.7-8.2)
[2025-02-04 18:38] LABS: Bilirubin, Total 0.2 mg/dL (0.2-1.0); Chloride 108 mmol/L (98-107)
--- NOTE | 2025-02-04 20:42 | DVH ---
OB ULTRASOUND <14 WEEKS: HISTORY: vag bleed, plevic pain TECHNIQUE: Multiple real-time grayscale sonographic images of the pelvis with duplex doppler color fl ow, spectral and M-mode analysis. TRANSDUCERS: Transabdominal and transvaginally FINDINGS: The uterus measures 12.7 X 5.5 X 4 cm. The endometrium measures 12.5mm in thickness. Right ovary measures 2.3 X 1.5 X 2.5 cm with normal Doppler color flow Left ovary measures 2.4 X 1.5 X 2.4 cm with normal Doppler color flow IMPRESSION: No intrauterine identified. Given HCG is positive, this is compatible with of unk nown location. Recommend ongoing follow-up B- HCG levels and repeat imaging as indicated.
[2025-02-04] MEDS ORDERED: cefTRIAXone 1GM/50ML D5W 50 ML IV ONE (22:45)
[2025-02-04] MEDS: SODIUM CHLORIDE 0.9% 1,000 ML IV ONE (22:51)
[2025-02-04] MEDS ORDERED: fentaNYL CITRATE 100 MCG/2 ML VL IV ONE (23:00)
[2025-02-04] MEDS ORDERED: CEPH500T PO (23:01)
== END 2025-02-04 22:57 | disposition left against medical advice (07) ==
LOC: ER 17:36 → EDUNIT# 17:36 → EDBD 17:36 → ER 22:57
DX: O20.0 Threatened abortion (principal); N39.0 Urinary tract infection, site not specified; F41.9 Anxiety disorder, unspecified; F32.A Depression, unspecified; Z88.0 Allergy status to penicillin; Z79.899 Other long term (current) drug therapy; Z98.890 Other specified postprocedural states; Z3A.00 Weeks of gestation of pregnancy not specified
CPT/HCPCS: 36415; 76801; 76817; 80053; 81001; 84702; 85025; 86850; 86900; 86901; 96360; 99284; J7030

== ENCOUNTER 2025-04-07 12:49 | Emergency (ER) | payer MEDICAID ==
[~2025-04-07] VITALS: Ht 149.9 cm; Wt 96.5 kg
[~2025-04-07 12:49] MED LIST changes: +CEPH500T PO
[2025-04-07 12:50] VITALS: BP 119/68; PULSE 95; RESP 15; TEMP 98.6; O2SAT 98
--- NOTE | 2025-04-07 13:09 | ED.PDOC ---
Back pain HPI HPI Comments 25-year-old female presents with a chief complaint of back pain x 2 days. Patient states that 2 days ago she lifted her daughter and started to have worsening back pain. Patient reports that she has had back surgery before where she had discs removed in her lower back in May 2024. Patient is unable to straighten out her posture due to the pain. Chief Complaint: Back Pain Time Seen by MD: 13:02 Primary Care Provider: ANDIE Reviewed Notes: Medications, Allergies Allergies: Coded Allergies: Penicillins (Verified Allergy, Unknown, 10/26/24) Home Meds Active Scripts Cephalexin Monohydrate (Cephalexin) 500 Mg Tab, 1 TAB PO TID for 5 Days, #15 TAB Prov:JOAN KRUEGER DO 02/04/25 Cephalexin (KEFLEX CAPSULE) 250 Mg Cp, 250 MG PO QID for 7 Days, #28 BOTTLE Prov:CARLOS FELTON MD 01/26/25 Ondansetron Odt 4MG Tab (ZOFRAN PO) 4 Mg Tb, 4 MG PO Q4HP PRN for 5 Days, #25 TAB ODT TAB-DISSOLVE IN MOUTH, THEN SWALLOW Prov:HEENA WHITE MD 01/12/25 Nitrofurantoin Monohydrate Mac (Macrobid) 100 Mg Cap, 100 MG PO BID, #10 CAP Prov:RUSSELL PETTIT MD 10/26/24 Acetaminophen (Acetaminophen) 500 Mg Tab, 500 MG PO Q4HP PRN, #30 TAB Prov:KEVIN DALE PAC 04/27/24 Nitrofurantoin Monohydrate Mac (Macrobid) 100 Mg Cap, 100 MG PO BID for 7 Days, #14 CAP Prov:KEVIN DALE PAC 04/27/24 Cephalexin (KEFLEX CAPSULE) 250 Mg Cp, 1 CAP PO QID PRN for 7 Days, #28 CAP 0 Refills Prov:JONO CUTLER DO 03/20/23 Hydrocodone-Acetaminophen (Hydrocodone/Acetaminophen 5-325 mg) 1 Tab Tab, 1 TAB PO BID for 10 Days, #20 TAB 0 Refills Prov:JONO CUTLER DO 03/20/23 Cephalexin (KEFLEX CAPSULE) 250 Mg Cp, 1 CAP PO QID, #28 CAP 0 Refills Prov:JONO CUTLER DO 03/20/23 Hydrocodone-Acetaminophen (Hydrocodone/Acetaminophen 5-325 mg) 1 Tab Tab, 1 TAB PO 6XD PRN for 10 Days, #60 TAB Prov:JONO CUTLER 03/20/23 Cephalexin (KEFLEX CAPSULE) 250 Mg Cp, 500 CAP PO QID PRN for 7 Days, #28 CAP 1 Refill Prov:JONO CUTLER 03/20/23 Cephalexin (KEFLEX CAPSULE) 250 Mg Cp, 1 CAP PO QID, #28 CAP Prov:JONO CUTLER 03/20/23 Hydrocodone-Acetaminophen (Hydrocodone/Acetaminophen 5-325 mg) 1 Tab Tab, 1 TAB PO BID for 10 Days, #20 TAB Prov:JONO CUTLER 03/20/23 Cephalexin (KEFLEX CAPSULE) 250 Mg Cp, 1 CAP PO QID PRN for 7 Days, #28 CAP Prov:JONO CUTLER 03/20/23 Cephalexin (KEFLEX CAPSULE) 250 Mg Cp, 1 CAP PO QID PRN for 15 Days, #28 CAP 0 Refills Prov:JONO CUTLER 03/20/23 Hydrocodone-Acetaminophen (Hydrocodone/Acetaminophen 5-325 mg) 1 Tab Tab, 1 TAB PO 6XD PRN for 10 Days, #60 TAB Prov:JONO CUTLER 03/20/23 Ondansetron Odt 4MG Tab (ZOFRAN PO) 4 Mg Tb, 4 MG PO TIDP PRN for 30 Days, #90 TAB ODT TAB-DISSOLVE IN MOUTH, THEN SWALLOW Prov:MILY STEIN [facility] 02/09/23 Sertraline Hcl (Zoloft) 25 Mg Tab, 50 MG PO DAILY for 60 Days, #120 TAB 3 Refills Prov:MILY STEIN 02/09/23 Vit W/ Ferrous Fumara ( One Daily) Daily Tab, 1 TAB PO DAILY, #90 TAB 3 Refills Prov:MILY STEIN [facility] 02/09/23 Information Source: Patient Mode of Arrival: Ambulatory Timing: Weeks Duration: Intermittent Location of Back pain: (B) Lumbar Severity: Moderate Prehospital treatment: None Quality: Aching Onset: Lifing Past Medical History PAST MEDICAL HISTORY: Anxiety, Depression 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 Family History Family History: Reviewed,noncontributory to illness, Unknown Social History Smoker: Non-Smoker Alcohol: Occasionally Drugs: Denies Drug Use Lives In: Home Constitutional: denies: chills, diaphoresis, fatigue, fever, malaise, sweats, weakness, others EENTM: denies: blurred vision, double vision, ear bleeding, ear discharge, ear drainage, ear pain, ear ringing, eye pain, eye redness, hearing loss, mouth pain, mouth swelling, nasal discharge, nose bleeding, nose congestion, nose pain, photophobia, tearing, throat pain, throat swelling, voice changes, others Respiratory: denies: cough, hemoptysis, orthopnea, SOB at rest, shortness of breath, SOB with excertion, stridor, wheezing, others Cardiovascular: denies: chest pain, dizzy spells, diaphoresis, Dyspnea on exertion, edema, irregular heart beat, left arm pain, lightheadedness, palpitations, PND, syncope, others Gastrointestinal: denies: abdomen distended, abdominal pain, blood streaked bowels, constipated, diarrhea, dysphagia, difficulty swallowing, hematemesis, melena, nausea, poor appetite, poor fluid intake, rectal bleeding, rectal pain, vomiting, others Genitourinary: denies: abnormal vagina bleeding, burning, dyspareunia, dysuria, flank pain, frequency, hematuria, incontinence, pain, , vagina discharge, urgency, others Neurological: denies: dizziness, fainting, headache, left sided numbness, left sided weakness, numbness, paresthesia, pre-existing deficit, right sided numbness, right sided weakness, seizure, speech problems, tingling, tremors, wea kness, others Musculoskeletal: reports: back pain; denies: gout, joint pain, joint swelling, muscle pain, muscle stiffness, neck pain, others Integumetry: denies: bruises, change in color, change in hair/nails, dryness, laceration, lesions, lumps, rash, wounds, others Allergic/Immunocompromised: denies: Difficulty Healing, Frequent Infections, Hives, Itching, others Hematologic/Lymphatic: denies: anemia, blood clots, easy bleeding, easy bruising, swollen glands, others Endocrine: denies: excessive hunger, excessive sweating, excessive thirst, excessive urination, flushing, intolerance to cold, intolerance to heat, unexplained weight gain, unexplained weight loss, others Psychiatric: denies: anxiety, bipolar disorder, depression, hopeless, panic disorder, schizophrenia, sleepless, suicidal, others All Other Systems: Reviewed and Negative Physical Exam General Appearance: Moderate Distress, No Apparent Distress, Obese HEENT: Normal ENT Inspection, PERRL/EOMI, Pharynx Normal, TMs Normal Neck: Full Range of Motion, Non-Tender, Normal, Normal Inspection Respiratory: Chest Non-Tender, Lungs Clear, No Accessory Muscle Use, No Respiratory Distress, Normal Breath Sounds Cardiovascular: No Edema, No JVD, No Murmur, No Gallop, Normal Peripheral Pulses, Regular Rate/Rhythm Breast Exam: Deferred Gastrointestinal: No Organomegaly, Non Tender, No Pulsatile Mass, Normal Bowel Sounds, Soft Genitalia: Deferred Pelvic: Deferred Rectal: Deferred Extremities: No calf tenderness, Normal capillary refill, Normal inspection, Normal range of motion, Non-tender, No pedal edema Musculoskeletal : Location: Bilateral Extremity Location: Back Apperance: Limited ROM, Tenderness: Moderate, Other (Exacerbation of chronic back pain after lifting her daughter) Neurologic: 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 Was a procedure done?: No Back Pain Differential Dx Differential Diagnosis: DJD, Musculoskeletal Pain, Strain X-Ray, Labs, Meds, VS Vital Signs Date Time Temp Pulse Resp B/P (MAP) Pulse Ox O2 Delivery O2 Flow Rate FiO2 04/07/25 12:50 98.6 95 15 119/68 98 98.6 Current Medications Medications (Trade) Dose Ordered Sig/Bony Route Start Time Stop Time Status Last Admin Ketorolac Tromethamine (Toradol Injection) 60 mg ONCE ONCE IM 04/07/25 13:15 04/07/25 13:16 DC 04/07/25 13:13 X-Ray, Labs, Meds, VS Comment Course in the [employer] eventful patient came with severe low back pain after lifting her daughter Last year patient had surgery The CT of the lumbar spine today is normal Patient will be discharged home to follow up with your PCP Time of 1ST Reevaluation: 13:36 Reevaluation 1ST: Unchanged Time of 2ND Reevaluation: 14:34 Reevaluation 2ND: Improved Consultation: PCP Patient Education/Counseling: Diagnosis, Treatment, Prognosis, Need For Follow Up Family Education/Counseling: Diagnosis, Treatment, Prognosis, Need For Follow Up, No Family Present SEPSIS Sepsis Screen Date sepsis recognized/suspect: Apr 07, 2025 Time Sepsis recognized/suspect: 1251 Recent Procedure: No On Antibiotic Therapy: No Respiratory Rate >20: No Heart Rate >90: No Temp<36 C (96.8 F) or >38.3 C: No SBP <90 or MAP <65 mmHG: No New Acute Mental Status Change: No Is the patient on CPAP, BIPAP,: No Physician Orders Ls Spine Wo Contrast (04/07/25 13:12) Vital Signs Date Time Temp Pulse Resp B/P (MAP) Pulse Ox O2 Delivery O2 Flow Rate FiO2 04/07/25 12:50 98.6 95 15 119/68 98 98.6 Medications Medications Dose Ordered Sig/Bony Route Start Time Stop Time Status Last Admin Dose Admin Ketorolac Tromethamine 60 mg ONCE ONCE IM 04/07/25 13:15 04/07/25 13:16 DC 04/07/25 13:13 Departure 1 Departure Time of Disposition: 14:35 Impression: Primary Impression: Lumbar sprain Additional Impression: Back muscle spasm Disposition: 01 HOME / SELF CARE / HOMELESS Condition: Fair Additional Instructions: [facility] bedrest for today follow up with your PCP e-Prescriptions Cyclobenzaprine Hcl (Cyclobenzaprine Hcl) 10 Mg Tab 10 MG PO TID for 10 Days, #30 TAB Prov: REX CORTEZ MD 04/07/25 Diclofenac Potassium (Diclofenac Potassium) 50 Mg Tab 50 MG PO TID for 10 Days, #30 TAB Prov: REX CORTEZ MD 04/07/25 Discharged With: Self Critical Care Note Critical Care Time?: No Stability Stability form required: No Heart Score Heart Score: Heart Score Response (Comments) Value History N/A 0 EKG N/A 0 Age <45 0 Risk Factors No known risk factors 0 Troponin N/A 0 Total 0 I personally scribed for REX CORTEZ MD ([email or web address]) on 04/07/25 at 13:09. Electronically submitted by Eloy Astorga ([email or web address]). REX CORTEZ MD Apr 07, 2025 13:09
[2025-04-07] MEDS: KETOROLAC TROMETH 60MG/2ML VIAL IM ONE (13:13)
--- NOTE | 2025-04-07 14:25 | DVH ---
EXAM: CT LS SPINE WO CONTRAST INDICATION: Exacerbation of chronic back pain history of surgery last ye EXAM DATE: 04/07/2025 01:12 PM COMPARISON: None TECHNIQUE: Multiple axial CT images of the lumbar spine were obtained using bone algorithm. Axial and coronal reformatting was done. Bone and soft tissue windows were reviewed. Radiation Dose Information: CT Dose: CTDI volume is 38.05 mGy. Dose-length product is 1262.7 mGy*cm Findings: There are 5 nonrib-bearing lumbar vertebrae. There is no evidence of an acute fracture or spondylolisthesis. The vertebral body heights are well-m aintained. L4-L5 posterior spinal fusion with intervertebral disc spacer. No evidence of degenerative disc disease. No neuroforaminal narrowing. No spinal canal stenosis. The alignment is within normal limits. The paraspinal soft tissues appear within normal limits. Punct ate nonobstructive left nephrolithiasis. Impression: 1. No acute osseous abnormalities.
[2025-04-07] MEDS ORDERED: CYCL-839 PO (14:38)
[2025-04-07] MEDS ORDERED: DICL50TA2 PO (14:38)
== END 2025-04-07 14:46 | disposition home or self-care (01) ==
LOC: ER 12:49
DX: S33.5XXA Sprain of ligaments of lumbar spine, initial encounter (principal); M62.830 Muscle spasm of back; F41.9 Anxiety disorder, unspecified; F32.A Depression, unspecified; F10.90 Alcohol use, unspecified, uncomplicated; Z79.899 Other long term (current) drug therapy; Z88.0 Allergy status to penicillin; Z79.891 Long term (current) use of opiate analgesic; X50.9XXA Other and unspecified overexertion or strenuous movements or postures, initial encounter; Y93.89 Activity, other specified; Y92.89 Other specified places as the place of occurrence of the external cause; Y99.8 Other external cause status; Y90.9 Presence of alcohol in blood, level not specified
CPT/HCPCS: 72131; 96372; 99285; J1885

== ENCOUNTER 2025-06-05 17:31 | Emergency (ER) | payer MEDICAID ==
[~2025-06-05] VITALS: Ht 149.9 cm; Wt 97.6 kg
[~2025-06-05 17:31] MED LIST changes: +CYCL-839 PO; +DICL50TA2 PO
--- NOTE | 2025-06-05 17:56 | ED.PDOC ---
History of Present Illness HPI Comments 25F presents to the ER w/ prior MHx of Anxiety, Depression; SHx of , Back Sx and the c/c of ABD pain. Pt reports on currently being 8 weeks and started having sharp lower ABD pain associated w/ spotting while wiping and a cough. Pt's OBGYN is Dr. Quiroz. Denies any other symptoms at this time. Denies chills, fever, N/V/D, SOB, CP. Denies any other associated symptom's, modifiers, or recent injuries or sick contact at this time. Chief Complaint: Abdominal Pain Time Seen by MD: 17:55 Primary Care Provider: ANDIE Reviewed Notes: Nurses Notes, Medications, Allergies Allergies: Coded Allergies: Penicillins (Verified Allergy, Unknown, 10/26/24) Home Meds Active Scripts Cyclobenzaprine Hcl (Cyclobenzaprine Hcl) 10 Mg Tab, 10 MG PO TID for 10 Days, #30 TAB Prov:REX CORTEZ MD 04/07/25 Diclofenac Potassium (Diclofenac Potassium) 50 Mg Tab, 50 MG PO TID for 10 Days, #30 TAB Prov:REX CORTEZ MD 04/07/25 Cephalexin Monohydrate (Cephalexin) 500 Mg Tab, 1 TAB PO TID for 5 Days, #15 TAB Prov:JOAN KRUEGER DO 02/04/25 Cephalexin (KEFLEX CAPSULE) 250 Mg Cp, 250 MG PO QID for 7 Days, #28 BOTTLE Prov:CARLOS FELTON MD 01/26/25 Ondansetron Odt 4MG Tab (ZOFRAN PO) 4 Mg Tb, 4 MG PO Q4HP PRN for 5 Days, #25 TAB ODT TAB-DISSOLVE IN MOUTH, THEN SWALLOW Prov:HEENA WHITE MD 01/12/25 Nitrofurantoin Monohydrate Mac (Macrobid) 100 Mg Cap, 100 MG PO BID, #10 CAP Prov:RUSSELL PETTIT MD 10/26/24 Acetaminophen (Acetaminophen) 500 Mg Tab, 500 MG PO Q4HP PRN, #30 TAB Prov:KEVIN DALE PAC 04/27/24 Nitrofurantoin Monohydrate Mac (Macrobid) 100 Mg Cap, 100 MG PO BID for 7 Days, #14 CAP Prov:KEVIN DALE PAC 04/27/24 Cephalexin (KEFLEX CAPSULE) 250 Mg Cp, 1 CAP PO QID PRN for 7 Days, #28 CAP 0 Refills Prov:JONO CUTLER DO 03/20/23 Hydrocodone-Acetaminophen (Hydrocodone/Acetaminophen 5-325 mg) 1 Tab Tab, 1 TAB PO BID for 10 Days, #20 TAB 0 Refills Prov:JONO CUTLER DO 03/20/23 Cephalexin (KEFLEX CAPSULE) 250 Mg Cp, 1 CAP PO QID, #28 CAP 0 Refills Prov:JONO CUTLER DO 03/20/23 Hydrocodone-Acetaminophen (Hydrocodone/Acetaminophen 5-325 mg) 1 Tab Tab, 1 TAB PO 6XD PRN for 10 Days, #60 TAB Prov:JONO CUTLER DO 03/20/23 Cephalexin (KEFLEX CAPSULE) 250 Mg Cp, 500 CAP PO QID PRN for 7 Days, #28 CAP 1 Refill Prov:JONO CUTLER DO 03/20/23 Cephalexin (KEFLEX CAPSULE) 250 Mg Cp, 1 CAP PO QID, #28 CAP Prov:JONO CUTLER DO 03/20/23 Hydrocodone-Acetaminophen (Hydrocodone/Acetaminophen 5-325 mg) 1 Tab Tab, 1 TAB PO BID for 10 Days, #20 TAB Prov:JONO CUTLER DO 03/20/23 Cephalexin (KEFLEX CAPSULE) 250 Mg Cp, 1 CAP PO QID PRN for 7 Days, #28 CAP Prov:JONO CUTLER DO 03/20/23 Cephalexin (KEFLEX CAPSULE) 250 Mg Cp, 1 CAP PO QID PRN for 15 Days, #28 CAP 0 Refills Prov:JONO CUTLER DO 03/20/23 Hydrocodone-Acetaminophen (Hydrocodone/Acetaminophen 5-325 mg) 1 Tab Tab, 1 TAB PO 6XD PRN for 10 Days, #60 TAB Prov:JONO CUTLER DO 03/20/23 Ondansetron Odt 4MG Tab (ZOFRAN PO) 4 Mg Tb, 4 MG PO TIDP PRN for 30 Days, #90 TAB ODT TAB-DISSOLVE IN MOUTH, THEN SWALLOW Prov:MILY STEIN CNM 02/09/23 Sertraline Hcl (Zoloft) 25 Mg Tab, 50 MG PO DAILY for 60 Days, #120 TAB 3 Refills Prov:MILY STEIN [facility] 02/09/23 Vit W/ Ferrous Fumara ( One Daily) Daily Tab, 1 TAB PO DAILY, #90 TAB 3 Refills Prov:MILY STEIN [facility] 02/09/23 Information Source: Patient Mode of Arrival: Ambulatory Severity: Moderate Timing: Hours Duration: Since onset, Hours Prehospital treatment: None Past Medical History PAST MEDICAL HISTORY: Anxiety, Depression Surgical History: Surgical History (Other): 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 Family History Family History: Reviewed,noncontributory to illness, Family hx of DM, Family hx of heart [place] Social History Smoker: Quit Less Than 1 Year Alcohol: Sober Drugs: Denies Drug Use Lives In: Home Constitutional: denies: chills, diaphoresis, fatigue, fever, malaise, sweats, weakness, others EENTM: denies: blurred vision, double vision, ear bleeding, ear discharge, ear drainage, ear pain, ear ringing, eye pain, eye redness, hearing loss, mouth pain, mouth swelling, nasal discharge, nose bleeding, nose congestion, nose pain, photophobia, tearing, throat pain, throat swelling, voice changes, others Respiratory: reports: cough; denies: hemoptysis, orthopnea, SOB at rest, shortness of breath, SOB with excertion, stridor, wheezing, others Cardiovascular: denies: chest pain, dizzy spells, diaphoresis, Dyspnea on exertion, edema, irregular heart beat, left arm pain, lightheadedness, palpitations, PND, syncope, others Gastrointestinal: reports: abdominal pain; denies: abdomen distended, blood streaked bowels, constipated, diarrhea, dysphagia, difficulty swallowing, hematemesis, melena, nausea, poor appetite, poor fluid intake, rectal bleeding, rectal pain, vomiting, others Genitourinary: reports: abnormal vagina bleeding, ; denies: burning, dyspareunia, dysuria, flank pain, frequency, hematuria, incontinence, pain, vagina discharge, urgency, others Neurological: denies: dizziness, fainting, headache, left sided numbness, left sided weakness, numbness, paresthesia, pre-existing deficit, right sided numbness, right sided weakness, seizure, speech problems, tingling, tremors, weakness, others Musculoskeletal: denies: back pain, gout, joint pain, joint swelling, muscle pain, muscle stiffness, neck pain, others Integumetry: denies: bruises, change in color, change in hair/nails, dryness, laceration, lesions, lumps, rash, wounds, others Allergic/Immunocompromised: denies: Difficulty Healing, Frequent Infections, Hives, Itching, others Hematologic/Lymphatic: denies: anemia, blood clots, easy bleeding, easy bruising, swollen glands, others Endocrine: denies: excessive hunger, excessive sweating, excessive thirst, excessive urination, flushing, intolerance to cold, intolerance to heat, unexplained weight gain, unexplained weight loss, others Psychiatric: denies: anxiety, bipolar disorder, depression, hopeless, panic disorder, schizophrenia, sleepless, suicidal, others All Other Systems: Reviewed and Negative Physical Exam General Appearance: No Apparent Distress HEENT: Normal ENT Inspection, Pharynx Normal, TMs Normal Neck: Full Range of Motion, Non-Tender, Normal, Normal Inspection Respiratory: Chest Non-Tender, Lungs Clear, No Accessory Muscle Use, No Respiratory Distress, Normal Breath Sounds Cardiovascular: No Edema, No JVD, No Murmur, No Gallop, Normal Peripheral Pulses, Regular Rate/Rhythm Breast Exam: Deferred Gastrointestinal: No Organomegaly, Non Tender, No Pulsatile Mass, Normal Bowel Sounds, Soft Genitalia: Deferred Pelvic: Deferred Rectal: Deferred Extremities: No calf tenderness, Normal capillary refill, Normal inspection, Normal range of motion, Non-tender, No pedal edema Musculoskeletal : Apperance: Normal Neurologic: 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 Was a procedure done?: No Differential Dx Considerations may include: Threatened , UTI in , ectopic X-Ray, Labs, Meds, VS Vital Signs Date Time Temp Pulse Resp B/P (MAP) Pulse Ox O2 Delivery O2 Flow Rate FiO2 06/05/25 17:32 98.3 82 15 115/80 98 98.3 Lab Test 06/05/25 17:56 Range/Units Beta HCG, Quantitative Pending Ultrasound of the pelvis shows: IMPRESSION: Single live intrauterine dated at 8 weeks 2 days by current ultrasound biometry At this time, the patient will be discharged and will follow up with the primary care doctor The patient will return to the emergency department's condition worsens The patient understands and agrees with the management Images Reviewed?: Images reviewed and evaluated by me Time of 1ST Reevaluation: 18:25 Reevaluation 1ST: Unchanged Patient Education/Counseling: Diagnosis, Treatment, Prognosis, Need For Follow Up Family Education/Counseling: No Family Present SEPSIS Sepsis Screen Date sepsis recognized/suspect: Jun 05, 2025 Time Sepsis recognized/suspect: 1734 Recent Procedure: No On Antibiotic Therapy: No Respiratory Rate >20: No Heart Rate >90: No Temp<36 C (96.8 F) or >38.3 C: No SBP <90 or MAP <65 mmHG: No New Acute Mental Status Change: No Is the patient on CPAP, BIPAP,: No Physician Orders Beta Hcg, Quantitative (06/05/25 17:50) Urinalysis (06/05/25 17:50) Ob Ultrasound Comp Less 14wks (06/05/25 17:50) Vital Signs Date Time Temp Pulse Resp B/P (MAP) Pulse Ox O2 Delivery O2 Flow Rate FiO2 06/05/25 17:32 98.3 82 15 115/80 98 98.3 Departure 1 Departure Time of Disposition: 18:55 Impression: Primary Impression: Threatened Additional Impression: Vaginal bleeding during Disposition: 01 HOME / SELF CARE / HOMELESS Condition: Fair Discharged With: Self Critical Care Note Critical Care Time?: No Stability Stability form required: No Heart Score Heart Score: Heart Score Response (Comments) Value History N/A 0 EKG N/A 0 Age N/A 0 Risk Factors N/A 0 Troponin N/A 0 Total 0 I personally scribed for TAMARA RIVERA MD ([email or web address]) on 06/05/25 at 17:56. Electronically submitted by Prabhu Walters ([email or web address]). TAMARA RIVERA MD Jun 05, 2025 17:56
--- NOTE | 2025-06-05 18:52 | DVH ---
CLINICAL HISTORY: pain and bleeding TECHNIQUE: Ultrasound examination of the female pelvis was performed. COMPARISON: US OB ULTRASOUND COMP LESS 14WKS on DOS: 02/04/25, US OB ULTRASOUND COMP LESS 14WKS on DOS: 02/02/25, US OB TRANS VAGINAL US on DOS: 02/02/25, US OB ULTRASOUND COMP LESS 14WKS on DOS: 01/26/25, US OB ULTRASOUND COMP LESS 14WKS on DOS: 01/12/25 FINDINGS: The uterus measures 14.3 x 5.3 x 7.4 CM. The myometrial echotexture is homogenous. No focal myometrial abnormality is seen. There is a single live intrauterine with a crown-rump length the 18 mm, which correlates with gestational age of 8 weeks 2 days. A yolk sac is present. The heart rate is 174 beats per minute. The sac shape appears normal. The volume appears appropriate. The right ovary measures 3.0 x 2.9 x 1.7 cm. The left ovary measures 2.9 x 2.7 x 1.4 cm. Normal color doppler flow and vascular waveforms. There is no free fluid. IMPRESSION: Single live intrauterine dated at 8 weeks 2 days by current ultrasound biometry
[2025-06-05 21:40] VITALS: BP 106/70; PULSE 77; RESP 14; TEMP 98.4; O2SAT 98
== END 2025-06-05 21:38 | disposition home or self-care (01) ==
LOC: ER 17:31
DX: O20.0 Threatened abortion (principal); Z3A.08 8 weeks gestation of pregnancy; Z79.899 Other long term (current) drug therapy; Z88.0 Allergy status to penicillin
CPT/HCPCS: 36415; 76801; 84702

== ENCOUNTER 2025-06-18 07:51 | Emergency (ER) | payer MEDICAID ==
[~2025-06-18] VITALS: Ht 149.9 cm; Wt 96.9 kg
[2025-06-18] MEDS: LIDOCAINE W/ EPINEPHRINE 1% 20ML VIAL ID ONE (08:48)
[2025-06-18 09:16] LABS: Vaginal Bacteria Many; Vaginal Clue Cells Moderate; Vaginal Epithelial Cells Many; Vaginal Trichomonas Not Present
[2025-06-18 10:02] LABS: Urine Protein, UAD TRACE (Negative)
[2025-06-18] MEDS ORDERED: MET500T PO (11:00)
[2025-06-18] MEDS ORDERED: CEFP200T15 PO (11:00)
--- NOTE | 2025-06-18 11:00 | ED.PDOC ---
General HPI Comments gu Chief Complaint: Pelvic Pain Time Seen by MD: 07:57 Primary Care Provider: ANDIE Allergies: Coded Allergies: Penicillins (Verified Allergy, Unknown, 10/26/24) Home Meds Active Scripts Cyclobenzaprine Hcl (Cyclobenzaprine Hcl) 10 Mg Tab, 10 MG PO TID for 10 Days, #30 TAB Prov:REX CORTEZ MD 04/07/25 Diclofenac Potassium (Diclofenac Potassium) 50 Mg Tab, 50 MG PO TID for 10 Days, #30 TAB Prov:REX CORTEZ MD 04/07/25 Cephalexin Monohydrate (Cephalexin) 500 Mg Tab, 1 TAB PO TID for 5 Days, #15 TAB Prov:JOAN KRUEGER DO 02/04/25 Cephalexin (KEFLEX CAPSULE) 250 Mg Cp, 250 MG PO QID for 7 Days, #28 BOTTLE Prov:CARLOS FELTON MD 01/26/25 Ondansetron Odt 4MG Tab (ZOFRAN PO) 4 Mg Tb, 4 MG PO Q4HP PRN for 5 Days, #25 TAB ODT TAB-DISSOLVE IN MOUTH, THEN SWALLOW Prov:HEENA WHITE MD 01/12/25 Nitrofurantoin Monohydrate Mac (Macrobid) 100 Mg Cap, 100 MG PO BID, #10 CAP Prov:RUSSELL PETTIT MD 10/26/24 Acetaminophen (Acetaminophen) 500 Mg Tab, 500 MG PO Q4HP PRN, #30 TAB Prov:KEVIN DALE PAC 04/27/24 Nitrofurantoin Monohydrate Mac (Macrobid) 100 Mg Cap, 100 MG PO BID for 7 Days, #14 CAP Prov:KEVIN DALE PAC 04/27/24 Cephalexin (KEFLEX CAPSULE) 250 Mg Cp, 1 CAP PO QID PRN for 7 Days, #28 CAP 0 Refills Prov:JONO CUTLER DO 03/20/23 Hydrocodone-Acetaminophen (Hydrocodone/Acetaminophen 5-325 mg) 1 Tab Tab, 1 TAB PO BID for 10 Days, #20 TAB 0 Refills Prov:JONO CUTLER DO 03/20/23 Cephalexin (KEFLEX CAPSULE) 250 Mg Cp, 1 CAP PO QID, #28 CAP 0 Refills Prov:JONO CUTLER DO 03/20/23 Hydrocodone-Acetaminophen (Hydrocodone/Acetaminophen 5-325 mg) 1 Tab Tab, 1 TAB PO 6XD PRN for 10 Days, #60 TAB Prov:JONO CUTLER 03/20/23 Cephalexin (KEFLEX CAPSULE) 250 Mg Cp, 500 CAP PO QID PRN for 7 Days, #28 CAP 1 Refill Prov:JONO CUTLER 03/20/23 Cephalexin (KEFLEX CAPSULE) 250 Mg Cp, 1 CAP PO QID, #28 CAP Prov:JONO CUTLER 03/20/23 Hydrocodone-Acetaminophen (Hydrocodone/Acetaminophen 5-325 mg) 1 Tab Tab, 1 TAB PO BID for 10 Days, #20 TAB Prov:JONO CUTLER 03/20/23 Cephalexin (KEFLEX CAPSULE) 250 Mg Cp, 1 CAP PO QID PRN for 7 Days, #28 CAP Prov:JONO CUTLER 03/20/23 Cephalexin (KEFLEX CAPSULE) 250 Mg Cp, 1 CAP PO QID PRN for 15 Days, #28 CAP 0 Refills Prov:JONO CUTLER 03/20/23 Hydrocodone-Acetaminophen (Hydrocodone/Acetaminophen 5-325 mg) 1 Tab Tab, 1 TAB PO 6XD PRN for 10 Days, #60 TAB Prov:JONO CUTLER 03/20/23 Ondansetron Odt 4MG Tab (ZOFRAN PO) 4 Mg Tb, 4 MG PO TIDP PRN for 30 Days, #90 TAB ODT TAB-DISSOLVE IN MOUTH, THEN SWALLOW Prov:[facility]IN [facility] 02/09/23 Sertraline Hcl (Zoloft) 25 Mg Tab, 50 MG PO DAILY for 60 Days, #120 TAB 3 Refills Prov:MILY STEIN 02/09/23 Vit W/ Ferrous Fumara ( One Daily) Daily Tab, 1 TAB PO DAILY, #90 TAB 3 Refills Prov:[facility]ILY STEIN [facility] 02/09/23 Mode of Arrival: Ambulatory Past Medical History PAST MEDICAL HISTORY: Anxiety, Depression Surgical History: MANAGER PHOTO History: Spontaneous Family History Family History: Reviewed,noncontributory to illness, Family hx of DM, Family hx of heart [place] Social History Smoker: Quit Less Than 1 Year Alcohol: Sober Drugs: Denies Drug Use Lives In: Home X-Ray, Labs, Meds, VS Vital Signs Date Time Temp Pulse Resp B/P (MAP) Pulse Ox O2 Delivery O2 Flow Rate FiO2 06/18/25 07:52 97.8 95 16 126/86 98 97.8 Lab Test 06/18/25 09:10 06/18/25 08:32 Range/Units Urine Color Light-yellow Yellow Urine Clarity Turbid H Clear Urine pH 6.5 5.0-9.0 Urine Specific [place] 1.022 1.001-1.035 Urine Protein Trace H Negative Urine Ketones Negative Negative Urine Blood 1+ H Negative /uL Urine Nitrite 1+ H Negative Urine Bilirubin Negative Negative Urine Urobilinogen Normal Negative mg/dL Urine Leukocyte Esterase 3+ Negative /uL Urine RBC 29 0 - 4 /hpf Urine Microscopic WBC 162 H 0-5 /HPF Urine Squamous Epithelial Cells Few <5 /hpf Urine Bacteria Many H None Seen /hpf Urine Mucus Few None Seen Urine Glucose Normal Normal mg/dL Chlamydia trachomatis (ADOLFO) Pending Neisseria gonorrhoeae (ADOLFO) Pending Vaginal WBC (Wet Prep) Many Vaginal RBC (Wet Prep) None seen Vaginal Epithelial Cells (Wet Prep) Many Vaginal Bacteria (Wet Prep) Many Vaginal Trichomonas (Wet Prep) Not present Vaginal Yeast (Wet Prep) None seen Vaginal Clue Cells (Wet Prep) Moderate SEPSIS Sepsis Screen Date sepsis recognized/suspect: Jun 18, 2025 Time Sepsis recognized/suspect: 0755 Recent Procedure: No On Antibiotic Therapy: No Respiratory Rate >20: No Heart Rate >90: Yes Temp<36 C (96.8 F) or >38.3 C: No SBP <90 or MAP <65 mmHG: No New Acute Mental Status Change: No Is the patient on CPAP, BIPAP,: No Physician Orders Chlamydia/Gc Amplification (06/18/25 09:10) Ceftriaxone Sodium (Rocephin) (06/18/25 11:00) Vital Signs Date Time Temp Pulse Resp B/P (MAP) Pulse Ox O2 Delivery O2 Flow Rate FiO2 06/18/25 07:52 97.8 95 16 126/86 98 97.8 Departure 1 Departure Time of Disposition: 10:57 Impression: Primary Impression: Bacterial vaginosis Additional Impression: UTI (urinary tract infection) during Qualified Codes: O23.41 - Unspecified infection of urinary tract in , first trimester Disposition: HOME / SELF CARE / HOMELESS Condition: Fair e-Prescriptions Metronidazole (Metronidazole) 500 Mg Tab 500 MG PO BID for 7 Days, #14 TAB 0 Refills Prov: GREGORIA SINGH NP 06/18/25 Cefpodoxime Proxetil (Cefpodoxime Proxetil) 200 Mg Tab 1 TAB PO BID, #20 TAB 0 Refills Prov: GREGORIA SINGH NP 06/18/25 GREGORIA SINGH NP Jun 18, 2025 11:00
[2025-06-18 11:20] VITALS: BP 124/84; PULSE 88; RESP 16; TEMP 98.6; O2SAT 98
[2025-06-18] MEDS: cefTRIAXone SOD 1,000 MG VL IM ONE (11:23)
[2025-06-20 06:06] LABS: Chlamydia Trachomatis, NAA Negative (Negative); Neisseria gonorrhoeae, NAA Negative (Negative)
== END 2025-06-18 11:36 | disposition home or self-care (01) ==
LOC: ER 07:51
DX: O23.41 Unspecified infection of urinary tract in pregnancy, first trimester (principal); F32.A Depression, unspecified; F41.9 Anxiety disorder, unspecified; Z79.891 Long term (current) use of opiate analgesic; Z79.899 Other long term (current) drug therapy; Z88.0 Allergy status to penicillin; Z3A.00 Weeks of gestation of pregnancy not specified
CPT/HCPCS: 81001; 87210; 87491; 87591; 96372; 99283; J0696

== ENCOUNTER 2025-07-29 13:31 | Emergency (ER) | payer MEDICAID ==
[~2025-07-29] VITALS: Ht 160 cm; Wt 95.4 kg
[~2025-07-29 13:31] MED LIST changes: +CEFP200T15 PO; +MET500T PO
--- NOTE | 2025-07-29 13:37 | ED.PDOC ---
GI ASSESSMENT HPI Comments This is a 25 year old female ELISEO presenting to the ED with chief complaint of abdominal pain. Patient reports that she has been experiencing LLQ abdominal pain with associated N/V/D and left lower back pain since this morning. Patient relays that she is currently 16 weeks . Patient denies any vaginal bleeding, dysuria, fever, chills, or flank pain. Time Seen by MD: 13:36 Primary Care Provider: CHAVES Reviewed Notes: Nurses Notes, Language Instructor Notes, Medications, Allergies Allergies: Coded Allergies: Penicillins (Verified Allergy, Unknown, 10/26/24) Home Meds Active Scripts Cephalexin Monohydrate (Cephalexin) 500 Mg Cap, 1 CAP PO QID for 6 Days, #24 CAP Prov:JAMES SABA MD 07/29/25 Ondansetron Odt 4MG Tab (ZOFRAN PO) 4 Mg Tb, 4 MG PO Q6HPRN PRN for 2 Days, #8 TAB ODT TAB-DISSOLVE IN MOUTH, THEN SWALLOW Prov:JAMES SABA MD 07/29/25 Acetaminophen (Acetaminophen Extra Stren) 500 Mg Tab, 1000 MG PO Q6HPRN PRN for 7 Days, #56 TAB Prov:JAMES SABA MD 07/29/25 Metronidazole (Metronidazole) 500 Mg Tab, 500 MG PO BID for 7 Days, #14 TAB 0 Refills Prov:GREGORIA SINGH NP 06/18/25 Cefpodoxime Proxetil (Cefpodoxime Proxetil) 200 Mg Tab, 1 TAB PO BID, #20 TAB 0 Refills Prov:GREGORIA SINGH NP 06/18/25 Cyclobenzaprine Hcl (Cyclobenzaprine Hcl) 10 Mg Tab, 10 MG PO TID for 10 Days, #30 TAB Prov:REX CORTEZ MD 04/07/25 Diclofenac Potassium (Diclofenac Potassium) 50 Mg Tab, 50 MG PO TID for 10 Days, #30 TAB Prov:REX CORTEZ MD 04/07/25 Cephalexin Monohydrate (Cephalexin) 500 Mg Tab, 1 TAB PO TID for 5 Days, #15 TAB Prov:JOAN KRUEGER DO 02/04/25 Cephalexin (KEFLEX CAPSULE) 250 Mg Cp, 250 MG PO QID for 7 Days, #28 BOTTLE Prov:CARLOS FELTON MD 01/26/25 Ondansetron Odt 4MG Tab (ZOFRAN PO) 4 Mg Tb, 4 MG PO Q4HP PRN for 5 Days, #25 TAB ODT TAB-DISSOLVE IN MOUTH, THEN SWALLOW Prov:HEENA WHITE MD 01/12/25 Nitrofurantoin Monohydrate Mac (Macrobid) 100 Mg Cap, 100 MG PO BID, #10 CAP Prov:RUSSELL PETTIT MD 10/26/24 Acetaminophen (Acetaminophen) 500 Mg Tab, 500 MG PO Q4HP PRN, #30 TAB Prov:KEVIN DALE PAC 04/27/24 Nitrofurantoin Monohydrate Mac (Macrobid) 100 Mg Cap, 100 MG PO BID for 7 Days, #14 CAP Prov:KEVIN DAEL PAC 04/27/24 Cephalexin (KEFLEX CAPSULE) 250 Mg Cp, 1 CAP PO QID PRN for 7 Days, #28 CAP 0 Refills Prov:JONO CUTLER DO 03/20/23 Hydrocodone-Acetaminophen (Hydrocodone/Acetaminophen 5-325 mg) 1 Tab Tab, 1 TAB PO BID for 10 Days, #20 TAB 0 Refills Prov:JONO CUTLER DO 03/20/23 Cephalexin (KEFLEX CAPSULE) 250 Mg Cp, 1 CAP PO QID, #28 CAP 0 Refills Prov:JONO CUTLER DO 03/20/23 Hydrocodone-Acetaminophen (Hydrocodone/Acetaminophen 5-325 mg) 1 Tab Tab, 1 TAB PO 6XD PRN for 10 Days, #60 TAB Prov:JONO CUTLER DO 03/20/23 Cephalexin (KEFLEX CAPSULE) 250 Mg Cp, 500 CAP PO QID PRN for 7 Days, #28 CAP 1 Refill Prov:JONO CUTLER DO 03/20/23 Cephalexin (KEFLEX CAPSULE) 250 Mg Cp, 1 CAP PO QID, #28 CAP Prov:JONO CUTLER DO 03/20/23 Hydrocodone-Acetaminophen (Hydrocodone/Acetaminophen 5-325 mg) 1 Tab Tab, 1 TAB PO BID for 10 Days, #20 TAB Prov:JONO CUTLER DO 03/20/23 Cephalexin (KEFLEX CAPSULE) 250 Mg Cp, 1 CAP PO QID PRN for 7 Days, #28 CAP Prov:JONO CUTLER 03/20/23 Cephalexin (KEFLEX CAPSULE) 250 Mg Cp, 1 CAP PO QID PRN for 15 Days, #28 CAP 0 Refills Prov:JONO CUTLER 03/20/23 Hydrocodone-Acetaminophen (Hydrocodone/Acetaminophen 5-325 mg) 1 Tab Tab, 1 TAB PO 6XD PRN for 10 Days, #60 TAB Prov:JONO CUTLER 03/20/23 Ondansetron Odt 4MG Tab (ZOFRAN PO) 4 Mg Tb, 4 MG PO TIDP PRN for 30 Days, #90 TAB ODT TAB-DISSOLVE IN MOUTH, THEN SWALLOW Prov:MILY STEIN [facility] 02/09/23 Sertraline Hcl (Zoloft) 25 Mg Tab, 50 MG PO DAILY for 60 Days, #120 TAB 3 Refills Prov:MILY STEIN [facility] 02/09/23 Vit W/ Ferrous Fumara ( One Daily) Daily Tab, 1 TAB PO DAILY, #90 TAB 3 Refills Prov:MILY STEIN [facility] 02/09/23 Information Source: Patient, Emergency Med Personnel Mode of Arrival: EMS Timing: Hours Duration: Since onset Prehospital treatment: None Quality: Sharp Vomitus: Watery Stool: Watery Severity: Moderate Recent: None Recent Hx of: Current Pain Location: LLQ Modifying Factors: Nothing Associated sign and symptoms: Nausea, Vomiting, Diarrhea, Abdominal Pain Past Medical History PAST MEDICAL HISTORY: Anxiety, Depression Surgical History: Surgical History (Other): Back surgery [employer] History: Spontaneous Family History Family History: Reviewed,noncontributory to illness, Family hx of DM, Family hx of heart [place] Social History Smoker: Quit Less Than 1 Year Alcohol: Sober Drugs: Denies Drug Use Lives In: Home Constitutional: denies: chills, diaphoresis, fatigue, fever, malaise, sweats, weakness, others EENTM: denies: blurred vision, double vision, ear bleeding, ear discharge, ear drainage, ear pain, ear ringing, eye pain, eye redness, hearing loss, mouth pain, mouth swelling, nasal discharge, nose bleeding, nose congestion, nose pain, photophobia, tearing, throat pain, throat swelling, voice changes, others Respiratory: denies: cough, hemoptysis, orthopnea, SOB at rest, shortness of breath, SOB with excertion, stridor, wheezing, others Cardiovascular: denies: chest pain, dizzy spells, diaphoresis, Dyspnea on exertion, edema, irregular heart beat, left arm pain, lightheadedness, palpitations, PND, syncope, others Gastrointestinal: reports: abdominal pain, diarrhea, nausea, vomiting; denies: abdomen distended, blood streaked bowels, constipated, dysphagia, difficulty swallowing, hematemesis, melena, poor appetite, poor fluid intake, rectal bleeding, rectal pain, others Genitourinary: reports: ; denies: abnormal vagina bleeding, burning, dyspareunia, dysuria, flank pain, frequency, hematuria, incontinence, pain, vagina discharge, urgency, others Neurological: denies: dizziness, fainting, headache, left sided numbness, left sided weakness, numbness, paresthesia, pre-existing deficit, right sided numbness, right sided weakness, seizure, speech problems, tingling, tremors, weakness, others Musculoskeletal: denies: back pain, gout, joint pain, joint swelling, muscle pain, muscle stiffness, neck pain, others Integumetry: denies: bruises, change in color, change in hair/nails, dryness, laceration, lesions, lumps, rash, wounds, others Allergic/Immunocompromised: denies: Difficulty Healing, Frequent Infections, Hives, Itching, others Hematologic/Lymphatic: denies: anemia, blood clots, easy bleeding, easy bruising, swollen glands, others Endocrine: denies: excessive hunger, excessive sweating, excessive thirst, excessive urination, flushing, intolerance to cold, intolerance to heat, unexplained weight gain, unexplained weight loss, others Psychiatric: denies: anxiety, bipolar disorder, depression, hopeless, panic disorder, schizophrenia, sleepless, suicidal, others All Other Systems: Reviewed and Negative Physical Exam General Appearance: No Apparent Distress, Normal HEENT: Normal ENT Inspection, Pharynx Normal, TMs Normal Neck: Full Range of Motion, Non-Tender, Normal, Normal Inspection Respiratory: Chest Non-Tender, Lungs Clear, No Accessory Muscle Use, No Respiratory Distress, Normal Breath Sounds Cardiovascular: No Edema, No JVD, No Murmur, No Gallop, Normal Peripheral Pulses, Regular Rate/Rhythm Breast Exam: Deferred Gastrointestinal: No Organomegaly, Non Tender, No Pulsatile Mass, Normal Bowel Sounds, Soft Genitalia: Deferred Pelvic: Deferred Rectal: Deferred Extremities: No calf tenderness, Normal capillary refill, Normal inspection, Normal range of motion, Non-tender, No pedal edema Musculoskeletal : Apperance: Normal Neurologic: Alert, croze cutter II-XII nml as Tested, No Motor Deficits, Normal Affect, Normal Mood, No Sensory Deficits Cerebellar Function: Normal Reflexes: Normal Skin: Dry, Normal Color, Warm Lymphatic: No Adenopathy Was a procedure done? Was a procedure done?: No GI differential Dx Differential Diagnosis: Gastroenteritis, UTI, Electrolyte Imbalance, Food Poisoning, Bacterial, Viral X-Ray, Labs, Meds, VS Vital Signs Date Time Temp Pulse Resp B/P (MAP) Pulse Ox O2 Delivery O2 Flow Rate FiO2 07/29/25 16:42 98.0 78 16 109/62 (78) 100 98.0 07/29/25 16:39 18 98 Room Air* 0 21 07/29/25 13:31 98.4 84 20 115/76 99 98.4 Lab Test 07/29/25 17:31 07/29/25 13:40 Range/Units Urine Color Light-yellow Yellow Urine Clarity Turbid H Clear Urine pH 6.0 5.0-9.0 Urine Specific [place] 1.024 1.001-1.035 Urine Protein Negative Negative Urine Ketones 2+ H Negative Urine Blood Negative Negative /uL Urine Nitrite Negative Negative Urine Bilirubin Negative Negative Urine Urobilinogen Normal Negative mg/dL Urine Leukocyte Esterase 1+ Negative /uL Urine RBC 4 0 - 4 /hpf Urine Microscopic WBC 25 H 0-5 /HPF Urine Squamous Epithelial Cells Mod <5 /hpf Urine Bacteria Mod H None Seen /hpf Urine Mucus Few None Seen Urine Glucose Normal Normal mg/dL Urine Test Positive Negative White Blood Count 12.7 H 4.4-10.8 10^3/uL Red Blood Count 3.91 L 4.0-5.20 10^6/uL Hemoglobin 12.5 12.2-16.2 g/dL Hematocrit 36.0 36.0-46.0 % Mean Corpuscular Volume 92.1 80.0-100.0 fL Mean Corpuscular Hemoglobin 31.9 28.0-32.0 pg Mean Corpuscular Hemoglobin Concent 34.7 32.0-36.0 g/dL Red Cell Distribution Width 13.7 11.8-14.3 % Platelet Count 349 140-450 10^3/uL Mean Platelet Volume 7.9 6.9-10.8 fL Neutrophils (%) (Auto) 71.0 37.0-80.0 % Lymphocytes (%) (Auto) 21.1 10.0-50.0 % Monocytes (%) (Auto) 6.9 0.0-12.0 % Eosinophils (%) (Auto) 0.6 0.0-7.0 % Basophils (%) (Auto) 0.4 0.0-2.0 % Neutrophils # (Auto) 9.0 H 1.6-8.6 10 ^3/uL Lymphocytes # (Auto) 2.7 0.4-5.4 10 ^3/uL Monocytes # (Auto) 0.9 0-1.3 10 ^3/uL Eosinophils # (Auto) 0.1 0-0.8 10 ^3/uL Basophils # (Auto) 0 0-0.2 10 ^3/uL Nucleated Red Blood Cells 0.0 % Sodium Level 137 136-145 mmol/L Potassium Level 3.8 3.5-5.1 mmol/L Chloride Level 105 98-107 mmol/L Carbon Dioxide Level 22 20-31 mmol/L Anion Gap 10 5-15 Blood Urea Nitrogen 5 L 9-23 mg/dL Creatinine 0.47 L 0.550-1.02 mg/dL Glomerular Filtration Rate Calc 135 >90 mL/min BUN/Creatinine Ratio 10.6 10.0-20.0 Serum Glucose 82 74-106 mg/dL Calcium Level 9.2 8.7-10.4 mg/dL Total Bilirubin 0.4 0.2-1.0 mg/dL Aspartate Amino Transferase (AST) 12 L 13-40 U/L Alanine Aminotransferase (ALT) 10 7-40 U/L Alkaline Phosphatase 61 46-116 U/L Total Protein 6.8 5.7-8.2 g/dL Albumin 4.1 3.2-4.8 g/dL Lipase 20 12-53 U/L Beta HCG, Quantitative 04249.2 H 1.5-4.2 mIU/mL Current Medications Medications (Trade) Dose Ordered Sig/Bony Route Start Time Stop Time Status Last Admin Sodium Chloride 1,000 ml @ 1,000 mls/hr Q1H ONCE IV 07/29/25 13:45 07/29/25 14:44 DC 07/29/25 16:30 Famotidine (Pepcid Injection) 20 mg ONCE ONCE IV 07/29/25 13:45 07/29/25 13:46 DC 07/29/25 16:33 Ondansetron HCl (Zofran) 4 mg ONCE ONCE IV 07/29/25 13:45 07/29/25 13:46 DC 07/29/25 16:33 Acetaminophen (Ofirmev) 1,000 mg ONCE ONCE IV 07/29/25 13:45 07/29/25 13:46 DC 07/29/25 16:34 Time of 1ST Reevaluation: 14:35 Reevaluation 1ST: Improved Time of 2ND Reevaluation: 18:17 (Feeling improved. No further episodes of vomiting.) Reevaluation 2ND: Improved Patient Education/Counseling: Diagnosis, Treatment Family Education/Counseling: No Family Present SEPSIS Sepsis Screen Physician Orders Ob Ultrasound Comp Gtr 14 Wks (07/29/25 13:37) Vital Signs Date Time Temp Pulse Resp B/P (MAP) Pulse Ox O2 Delivery O2 Flow Rate FiO2 07/29/25 16:42 98.0 78 16 109/62 (78) 100 98.0 07/29/25 16:39 18 98 Room Air* 0 21 07/29/25 13:31 98.4 84 20 115/76 99 98.4 Laboratory Tests Test 07/29/25 13:40 White Blood Count 12.7 10^3/uL (4.4-10.8) H Medications Medications Dose Ordered Sig/Bony Route Start Time Stop Time Status Last Admin Dose Admin Acetaminophen 1,000 mg ONCE ONCE IV 07/29/25 13:45 07/29/25 13:46 DC 07/29/25 16:34 Famotidine 20 mg ONCE ONCE IV 07/29/25 13:45 07/29/25 13:46 DC 07/29/25 16:33 Ondansetron HCl 4 mg ONCE ONCE IV 07/29/25 13:45 07/29/25 13:46 DC 07/29/25 16:33 Sodium Chloride 1,000 ml @ 1,000 mls/hr Q1H ONCE IV 07/29/25 13:45 07/29/25 14:44 DC 12/29/25 16:30 Departure 1 Departure Time of Disposition: 18:19 (25-year-old female presenting for sudden onset left lower abdominal pain, nausea, vomiting, diarrhea. Given all the sudden onset of symptoms together seems likely consistent with acute gastroenteritis. Patient is afebrile here, has no critical leukocytosis, she is otherwise young and healthy, does not seem consistent with acute diverticulitis. Patient was co ncerned that she is having a miscarriage given the left-sided abdominal discomfort. However, is not having any vaginal bleeding, OB ultrasound was performed which shows no findings to suggest miscarriage or other acute complication related to her . Urinalysis does seem consistent with a UTI. Patient here is afebrile, has no critical leukocytosis, no critical vital sign abnormalities, does not appear septic or to have pyelonephritis currently. The patient was treated for her symptoms with 1 L normal saline IV fluid bolus, IV Tylenol, IV Pepcid, IV Zofran. Was still having some lower back pain, was given topical lidocaine patch. Was given IV ceftriaxone given UTI in . Patient with no further episodes of vomiting. Seems suitable for discharge further outpatient management. Will be given a prescription for Keflex, Tylenol, Zofran. However, advised to return for worsening symptoms.) Impression: Primary Impression: Left lower quadrant abdominal pain Additional Impressions: Nausea vomiting and diarrhea Acute urinary tract infection Low back pain Disposition: HOME / SELF CARE / HOMELESS Condition: Stable Additional Instructions: Your symptoms today may have been related to a viral gastroenteritis. However, you also findings of a urinary tract infection. You were given the 1st dose of IV antibiotics in the emergency department which is good for 24 hours. You were then given a prescription for 6 additional days. Please start taking these antibiotics on the night of 07/30/2025. Return to the emergency department for worsening pain, symptoms not controlled with outpatient medications, or any other concerning symptoms. e-Prescriptions Cephalexin Monohydrate (Cephalexin) 500 Mg Cap 1 CAP PO QID for 6 Days, #24 CAP Prov: JAMES SABA MD 07/29/25 Ondansetron Odt 4MG Tab (ZOFRAN PO) 4 Mg Tb 4 MG PO Q6HPRN PRN for 2 Days, #8 TAB ODT TAB-DISSOLVE IN MOUTH, THEN SWALLOW Prov: JAMES SABA MD 07/29/25 Acetaminophen (Acetaminophen Extra Stren) 500 Mg Tab 1000 MG PO Q6HPRN PRN for 7 Days, #56 TAB Prov: JAMES SABA MD 07/29/25 Discharged With: Self Critical Care Note Critical Care Time?: No Stability Stability form required: No Heart Score Heart Score: Heart Score Response (Comments) Value History N/A 0 EKG N/A 0 Age N/A 0 Risk Factors N/A 0 Troponin N/A 0 Total 0 I personally scribed for JAMES SABA MD ([email or web address]) on 07/29/25 at 13:37. Electronically submitted by Feliciano Gao ([email or web address]). JAMES SABA MD Jul 29, 2025 13:37
[2025-07-29 14:04] LABS: Hematocrit 36.0 % (36.0-46.0); Hemoglobin 12.5 g/dL (12.2-16.2); Mean Corpuscular Hemoglobin 31.9 pg (28.0-32.0); Mean Corpuscular Volume 92.1 fL (80.0-100.0); Nucleated Red Blood Cells % 0.0 %
[2025-07-29 14:22] LABS: Alanine Aminotransferase 10 U/L (7-40); Albumin 4.1 g/dL (3.2-4.8); Alkaline Phosphatase 61 U/L (46-116); Anion Gap 10 (5-15); BUN/Creatinine Ratio 10.6 (10.0-20.0); Calcium 9.2 mg/dL (8.7-10.4); Carbon Dioxide 22 mmol/L (20-31); Chloride 105 mmol/L (98-107); Glucose 82 mg/dL (74-106); Lipase 20 U/L (12-53); Potassium 3.8 mmol/L (3.5-5.1); Sodium 137 mmol/L (136-145); Total Protein 6.8 g/dL (5.7-8.2)
[2025-07-29 14:23] LABS: Bilirubin, Total 0.4 mg/dL (0.2-1.0)
[2025-07-29 14:29] LABS: Blood Urea Nitrogen 5 mg/dL (9-23)
--- NOTE | 2025-07-29 16:20 | DVH ---
LIMITED OB ULTRASOUND > 14 WKS: HISTORY: LLQ pain, 16 weeks , abdominal contractions TECHNIQUE: Multiple real-time grayscale images of the gravid uterus with duplex Doppler color flow and M-mode spectral analysis. FINDINGS: IUP single live fetus at 16 weeks and 1 day based on composite averages of the BPD, head circumference, abdominal circumference and femur length heart rate 147 beats per minute. weight of 145 g Cervix 5.6 cm. Cervix is closed. Transverse left head Presentation Grade 2 anterior Placenta without previa or abruption. Placental Lutz measuring 1.8 x 1.5 x 1.1 cm. IMPRESSION: 1. IUP single live fetus at 16 weeks and 1 day AUA corresponding to an NED of 01/11/2026 2. Grade 2 anterior Placenta without previa or abruption. Placental Lutz measuring 1.8 x 1.5 x 1.1 cm
[2025-07-29] MEDS: SODIUM CHLORIDE 0.9% 1,000 ML IV ONE (16:30)
[2025-07-29] MEDS: FAMOTIDINE (10MG/ML) 2ML VL IV ONE (16:33)
[2025-07-29] MEDS: ONDANSETRON HCL 4 MG/2 ML VIAL IV ONE (16:33)
[2025-07-29] MEDS: ACETAMINOPHEN IV 1000 MG/100ML (10MG/ML) IV ONE (16:34)
[2025-07-29 16:39] VITALS: RESP 18; O2SAT 98
[2025-07-29 17:52] LABS: Urine Protein, UAD Negative (Negative)
[2025-07-29] MEDS ORDERED: ACET-6 PO (18:25)
[2025-07-29] MEDS ORDERED: ZOFR4T PO (18:25)
[2025-07-29] MEDS ORDERED: CEPH500C PO (18:25)
[2025-07-29] MEDS: LIDOCAINE 5% TOPICAL PATCH TOP ONE (21:18)
[2025-07-29 21:56] VITALS: BP 118/76; PULSE 87; RESP 18; TEMP 98.5; O2SAT 98
== END 2025-07-29 21:57 | disposition home or self-care (01) ==
LOC: EDBD 13:31 → ER 13:31
DX: O23.42 Unspecified infection of urinary tract in pregnancy, second trimester (principal); O21.9 Vomiting of pregnancy, unspecified; O20.0 Threatened abortion; N39.0 Urinary tract infection, site not specified; M54.50 Low back pain, unspecified; R19.7 Diarrhea, unspecified; Z88.0 Allergy status to penicillin; Z79.899 Other long term (current) drug therapy; Z3A.16 16 weeks gestation of pregnancy
CPT/HCPCS: 36415; 76805; 80053; 81001; 81025; 83690; 84702; 85025; 96361; 96365; 96375; 99285; J0696; J2405; J3490; J7030; J0131